=== PATIENT | female | born 1975 | race Caucasian/White ===

== ENCOUNTER 2018-05-04 06:42 | Emergency (ER) | payer OTHER ==
[2018-05-04] MEDS ORDERED: METHYLPREDNISOLONE 125 MG INJ ONE (07:06)
[2018-05-04] MEDS ORDERED: FAMOTIDINE 20 MG TAB ONE (07:06)
--- NOTE | 2018-05-04 07:11 | EDPHYS ---
Physician Documentation [facility] Name: Vickie Davila Age: 43 yrs Sex: Female : 1975 Arrival Date: 05/04/2018 Time: 06:43 Bed 17 Private MD: Yang Reddy B ED Physician Isaac Joseph HPI: 05/04 06:56 This 43 yrs old Female presents to ER via Ambulatory with complaints of Arm pm1 Pain, Wasp Sting. 06:56 The patient or guardian complains of pain, that is acute, swelling. The complaints pm1 affect the left hand and forearm. Context: The problem was sustained outdoors, resulted from Sting from wasps. Onset: The symptoms/episode began/occurred yesterday. Treatment prior to arrival includes: over the counter medications, Benadryl and ice packs. Modifying factors: The symptoms are alleviated by nothing. the symptoms are aggravated by nothing. Associated signs and symptoms: Pertinent positives: pain, swelling, Itching. Severity of symptoms: in the emergency department the symptoms are unchanged. The patient has not experienced similar symptoms in the past. The patient has not recently seen a physician. 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 - Social history:: Smoking status: Patient/guardian denies using tobacco, Patient/guardian denies using alcohol, street drugs. - Ebola Screening: : No symptoms or risks identified at this time. ROS: 06:56 Constitutional: Negative for fever, chills, and weight loss, Eyes: Negative for injury, pm1 pain, redness, and discharge, ENT: Negative for injury, pain, and discharge, Neck: Negative for injury, pain, and swelling, Cardiovascular: Negative for chest pain, palpitations, and edema, Respiratory: Negative for shortness of breath, cough, wheezing, and pleuritic chest pain, Abdomen/GI: Negative for abdominal pain, nausea, vomiting, diarrhea, and constipation, Back: Negative for injury and pain. 06:56 Neuro: Negative for headache, weakness, numbness, tingling, and seizure. 06:56 MS/extremity: Positive for pain, swelling, of the left hand and forearm. 06:56 Skin: Positive for swelling, of the left hand and forearm, pain. Exam: 06:56 Constitutional: This is a well developed, well nourished patient who is awake, alert, pm1 and in no acute distress. Head/Face: Normocephalic, atraumatic. Eyes: Pupils equal round and reactive to light, extra-ocular motions intact. Lids and lashes normal. Conjunctiva and sclera are non-icteric and not injected. Cornea within normal limits. Periorbital areas with no swelling, redness, or edema. ENT: Nares patent. No nasal discharge, no septal abnormalities noted. Tympanic membranes are normal and external auditory canals are clear. Oropharynx with no redness, swelling, or masses, exudates, or evidence of obstruction, uvula midline. Mucous membranes moist. Neck: Trachea midline, no thyromegaly or masses palpated, and no cervical lymphadenopathy. Supple, full range of motion without nuchal rigidity, or vertebral point tenderness. No Meningismus. Chest/axilla: Normal chest wall appearance and motion. Nontender with no deformity. No lesions are appreciated. Cardiovascular: Regular rate and rhythm with a normal S1 and S2. No gallops, murmurs, or rubs. No pulse deficits. Respiratory: Lungs have equal breath sounds bilaterally, clear to auscultation and percussion. No rales, rhonchi or wheezes noted. No increased work of breathing, no retractions or nasal flaring. Abdomen/GI: Soft, non-tender, with normal bowel sounds. No distension or tympany. No guarding or rebound. No evidence of tenderness throughout. Back: No spinal tenderness. No costovertebral tenderness. Full range of motion. 06:56 MS/ Extremity: Pulses equal, no cyanosis. Neurovascular intact. Full, normal range of motion. 06:56 Skin: Appearance: normal except for affected area, swelling, noted on the left hand, that are mild, cellulitis, is not appreciated. 06:56 Neuro: Orientation: is normal, Motor: is normal, moves all fours. Vital Signs: 06:54 BP 127 / 83; Pulse 67; Resp 16 S; Temp 98.1(O); Pulse Ox 98% on R/A; Weight 70.76 kg bb (R); Height 5 ft. 9 in. (175.26 cm) (R); Pain 10; 06:54 Body Mass Index 23.04 (70.76 kg, 175.26 cm) bb MDM: 06:51 Patient medically screened. pm1 06:55 ED course: Patient does not want any Benadryl because she needs to drive her child to pm1 an appointment in the medical center. Patient last took Benadryl at 0100 today. 07:10 Data reviewed: vital signs. Data interpreted: Pulse oximetry: on room air is 98 %. pm1 Interpretation: normal. Counseling: I had a detailed discussion with the patient and/or guardian regarding: the historical points, exam findings, and any diagnostic results supporting the discharge/admit diagnosis, the need for outpatient follow up, to return to the emergency department if symptoms worsen or persist or if there are any questions or concerns that arise at home. Administered Medications: 07:03 Drug: SOLU-Medrol 125 mg Route: IM; Site: right gluteus; tw2 07:15 Follow up: Response: No adverse reaction tw2 07:07 Drug: Pepcid 20 mg Route: PO; tw2 07:15 Follow up: Response: No adverse reaction tw2 Disposition: 05/04/18 07:11 Discharged to Home. Impression: Insect bite (nonvenomous) of left hand. - Condition is Stable. - Discharge Instructions: Insect Bite. - Prescriptions for Hydroxyzine HCl 25 mg Oral Tablet - take 1 tablet by ORAL route every 6 hours As needed; 30 tablet. Pepcid 20 mg Oral Tablet - take 1 tablet by ORAL route every 12 hours for 10 days; 20 tablet. Medrol (Zachariah) 4 mg Oral Tablets, Dose Pack - take 1 tablet by ORAL route as directed - follow package instructions; 1 packet. - Medication Reconciliation Form, Thank You Letter, Antibiotic Education, Prescription Opioid Use form. - Follow up: Emergency Department; When: As needed; Reason: Worsening of condition. Follow up: Yang Reddy; When: 2 - 3 days; Reason: Recheck today's complaints, Continuance of care, Re-evaluation by your physician. - Problem is new. - Symptoms have improved. Addendum: 05/07/2018 19:03 Co-signature as Attending Physician, Pin Joseph MD. p kl Signatures: Isaac Joseph MD MD pkl Rupa Ramirez, RN RN bb Amarjit Garner, SHIREEN SHOTBLAST EQUIPMENT OPERATOR pm1 Kalli Pedraza RN RN tw2 Corrections: (The following items were deleted from the chart) 05/04 07:16 07:11 05/04/2018 07:11 Discharged to Home. Impression: Insect bite (nonvenomous) of tw2 left hand. Condition is Stable. Discharge Instructions: Insect Bite. Prescriptions for Hydroxyzine HCl 25 mg Oral Tablet - take 1 tablet by ORAL route every 6 hours As needed; 30 tablet, Pepcid 20 mg Oral Tablet - take 1 tablet by ORAL route every 12 hours for 10 days; 20 tablet, Medrol (Zachariah) 4 mg Oral Tablets, Dose Pack - take 1 tablet by ORAL route as directed - follow package instructions; 1 packet. and Forms are Medication Reconciliation Form, Thank You Letter, Antibiotic Education, Prescription Opioid Use. Follow up: Emergency Department; When: As needed; Reason: Worsening of condition. Follow up: Yang Reddy; When: 2 - 3 days; Reason: Recheck today's complaints, Continuance of care, Re-evaluation by your physician. Problem is new. Symptoms have improved. pm1
--- NOTE | 2018-05-04 07:11 | ER ---
Nurse's Notes [facility] Name: Vickie Davila Age: 43 yrs Sex: Female : 1975 Arrival Date: 05/04/2018 Time: 06:43 Bed 17 Private MD: Yang Reddy B Diagnosis: Insect bite (nonvenomous) of left hand Presentation: 05/04 06:52 Presenting complaint: Patient states: she was stung by a wasp on her left hand bb yesterday her hand is swollen up into her forearm and is very painful. Transition of care: patient was not received from another setting of care. Onset: The symptoms/episode began/occurred yesterday. Anaphylaxis evaluation, no signs or symptoms of anaphylaxis were noted. Onset of symptoms was May 03, 2018. Risk Assessment: Do you want to hurt yourself or someone else? Patient reports no desire to harm self or others. Initial Sepsis Screen: Does the patient meet any 2 criteria? No. Patient's initial sepsis screen is negative. Does the patient have a suspected source of infection? No. Patient's initial sepsis screen is negative. [facility] 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 - Social history:: Smoking status: Patient/guardian denies using tobacco, Patient/guardian denies using alcohol, street drugs. - Ebola Screening: : No symptoms or risks identified at this time. Screenin:52 Abuse screen: Denies threats or abuse. Denies injuries from another. Nutritional aa1 screening: No deficits noted. Tuberculosis screening: No symptoms or risk factors identified. Fall Risk None identified. Assessment: 06:52 General: Appears in no apparent distress. comfortable, Behavior is calm, cooperative, aa1 appropriate for age. Pain: Complains of pain in left hand. Neuro: Level of Consciousness is awake, alert, obeys commands, Oriented to person, place, time, situation, Moves all extremities. Respiratory: Airway is patent Respiratory effort is even, unlabored, Respiratory pattern is regular, symmetrical, Breath sounds are clear bilaterally. GI: No signs and/or symptoms were reported involving the gastrointestinal system. : No signs and/or symptoms were reported regarding the genitourinary system. EENT: No signs and/or symptoms were reported regarding the EENT system. Derm: Skin is intact, is healthy with good turgor, Skin is pink, warm \T\ dry. redness noted to L hand. Musculoskeletal: Circulation, motion, and sensation intact. Capillary refill < 3 seconds, Swelling present in left hand. 07:16 Reassessment: Patient appears in no apparent distress at this time. Patient and/or tw2 family updated on plan of care and expected duration. Pain level reassessed. Patient is alert, oriented x 3, equal unlabored respirations, skin warm/dry/pink. Cardiovascular: Denies chest pain, Patient's skin is warm and dry. Vital Signs: 06:54 BP 127 / 83; Pulse 67; Resp 16 S; Temp 98.1(O); Pulse Ox 98% on R/A; Weight 70.76 kg bb (R); Height 5 ft. 9 in. (175.26 cm) (R); Pain 10/10; 06:54 Body Mass Index 23.04 (70.76 kg, 175.26 cm) bb ED Course: 06:43 Patient arrived in ED. am2 06:44 Yang Reddy MD is Private Physician. am2 06:49 [facility] pm1 06:49 Isaac Joseph MD is Attending Physician. pm1 06:52 Patient has correct armband on for positive identification. Bed in low position. Call aa1 light in reach. Pulse ox on. NIBP on. 06:53 Triage completed. bb 06:54 Arm band placed on Patient placed in an exam room, on a stretcher, on pulse oximetry. bb 06:59 Kalli Pedraza, JHOAN is Primary Nurse. tw2 07:08 No provider procedures requiring assistance completed. Patient did not have IV access tw2 during this emergency room visit. 07:11 Yang Reddy MD is Referral Physician. pm1 Administered Medications: 07:03 Drug: SOLU-Medrol 125 mg Route: IM; Site: right gluteus; tw2 07:15 Follow up: Response: No adverse reaction tw 07:07 Drug: Pepcid 20 mg Route: PO; tw 07:15 Follow up: Response: No adverse reaction Outcome: 07:11 Discharge ordered by . pm1 07:16 Discharged to home ambulatory. tw 07:16 Condition: stable 07:16 Discharge instructions given to patient, Instructed on discharge instructions, follow up and referral plans. medication usage, Demonstrated understanding of instructions, follow-up care, medications, Prescriptions given X 3. 07:16 Patient left the ED. Signatures: Angi Simpson RN RN aa1 Rupa Ramirez RN RN bb Amarjit Garner, SHIREEN LABORATORY TECHNOLOGIST pm1 Kalli Pedraza RN RN tw2 Bela Rangel am2
[2018-05-04 07:21] VITALS: BP 127/83; TEMP 98.1; O2SAT 98
== END 2018-05-04 07:16 | disposition home or self-care (01) ==
LOC: ER 06:42
DX: S60.562A Insect bite (nonvenomous) of left hand, initial encounter (principal); W57.XXXA Bitten or stung by nonvenomous insect and other nonvenomous arthropods, initial encounter; Y93.9 Activity, unspecified; Y92.017 Garden or yard in single-family (private) house as the place of occurrence of the external cause
CPT/HCPCS: 96372; 99283; J2930

== ENCOUNTER 2018-10-07 16:38 | Emergency (ER) | payer OTHER ==
[2018-10-07 17:44] LABS: Absolute Lymphocytes (CBC) 2.1 K/uL (0.7-4.9); Absolute Monocytes 0.7 K/uL (0.1-1.3); Absolute Neutrophil 3.8 K/uL (1.8-8.0); Eosinophils % 1.6 % (0-4.4); Lymphocytes % 31.2 % (15.3-44.8); MPV 9.3 fL (7.6-11.3); Monocytes % 10.3 % (3.3-12.3); RBC Red Blood Cell Count 3.95 M/uL (3.86-4.86)
[2018-10-07 18:02] LABS: Albumin 3.5 g/dL (3.4-5.0); Bilirubin Direct 0.1 mg/dL (0-0.2); Bilirubin Total 0.5 mg/dL (0.2-1.0); Potassium 3.8 mmol/L (3.5-5.1); Protein, Total 7.1 g/dL (6.4-8.2)
--- NOTE | 2018-10-07 18:36 | RAD REPORT ---
EXAM DESCRIPTION: CTAbdomen Pelvis W Contrast - 10/07/2018 6:29 pm CLINICAL HISTORY: Abdominal pain. Abd pain;GI bleed COMPARISON: No comparisons TECHNIQUE: Biphasic CT imaging of the abdomen and pelvis was performed with 100 ml non-ionic IV cont rast. All CT scans are performed using dose optimization technique as appropriate and may include automated exposure control or mA/KV adjustment according to patient size. FINDINGS: The lung bases are clear. The liver, spleen, pancreas, adrenal glands and kidneys are within normal limits. Small bilateral rafal al cysts. No bowel obstruction, free air, free fluid or abscess. The appendix is normal. No evidence of signi ficant lymphadenopathy. No suspicious bony findings. IMPRESSION: No acute intra-abdominal or pelvic finding.
[2018-10-07] MEDS ORDERED: NA CHLORIDE 0.9% 1,000 ML ONE (18:48)
[2018-10-07] MEDS ORDERED: CEFTRIAXONE/SWI 1gm 1 GM/10 ML SYR ONE (19:14)
--- NOTE | 2018-10-07 19:30 | ER ---
Nurse's Notes [facility] Name: Vickie Davila Age: 43 yrs Sex: Female : 1975 Arrival Date: 10/07/2018 Time: 16:40 Bed 18 Private MD: Yang Reddy B Diagnosis: Acute anal fissure;Unspecified abdominal pain Presentation: 10/07 16:51 Presenting complaint: Patient states: i just went to my PCP (Dr. Reddy) and was told i hj had UTI, today, when i went to the bathroom i started bleeding from my rectum, fresh blood and it hurts; denies fever and chills; reports abdominal pain; pain is 10/10; hx of hemorrhoids;. Transition of care: patient was not received from another setting of care. Onset of symptoms was October 07, 2018. Risk Assessment: Do you want to hurt yourself or someone else? Patient reports no desire to harm self or others. Initial Sepsis Screen: Does the patient meet any 2 criteria? No. Patient's initial sepsis screen is negative. Does the patient have a suspected source of infection? No. Patient's initial sepsis screen is negative. Care prior to arrival: None. 16:51 Method Of Arrival: Ambulatory 16:51 Acuity: CRISTAL 3 Triage Assessment: 16:54 General: Appears in no apparent distress. uncomfortable, Behavior is calm, cooperative, hj appropriate for age. Pain: Complains of pain in abdomen, rectum Pain currently is 10 out of 10 on a pain scale. 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 - Social history:: Smoking status: Patient/guardian denies using tobacco, Patient/guardian denies using alcohol. - Ebola Screening: : Patient negative for fever greater than or equal to 101.5 degrees Fahrenheit, and additional compatible Ebola Virus Disease symptoms Patient denies exposure to infectious person Patient denies travel to an Ebola-affected area in the 21 days before illness onset. Screenin:53 Abuse screen: Denies threats or abuse. Denies injuries from another. Nutritional hj screening: No deficits noted. Tuberculosis screening: No symptoms or risk factors identified. Fall Risk None identified. Assessment: 16:51 General: Appears in no apparent distress. uncomfortable, Behavior is calm, cooperative, hj appropriate for age. Pain: Complains of pain in abdomen, rectum. Neuro: Level of Consciousness is awake, alert, obeys commands, Oriented to person, place, time, situation, Appropriate for age. Cardiovascular: Capillary refill < 3 seconds Patient's skin is warm and dry. Respiratory: Airway is patent Respiratory effort is even, unlabored, Respiratory pattern is regular, symmetrical. GI: Reports lower abdominal pain, cramping, rectal bleeding, hemorrhoids. : No signs and/or symptoms were reported regarding the genitourinary system. EENT: No signs and/or symptoms were reported regarding the EENT system. Derm: No signs and/or symptoms reported regarding the dermatologic system. Musculoskeletal: No signs and/or symptoms reported regarding the musculoskeletal system. 17:41 Reassessment: Patient and/or family updated on plan of care and expected duration. Pain hj level reassessed. Patient is alert, oriented x 3, equal unlabored respirations, skin warm/dry/pink. awaiting results and POC;. 18:45 Reassessment: Patient is sitting up in bed eating Chick earl a wrap with family at aj bedside. Patient is laughing and smiling interacting with family. General: Appears in no apparent distress. comfortable, Behavior is calm, cooperative, appropriate for age. Pain: Complains of pain in anus. Neuro: Level of Consciousness is awake, alert, obeys commands, Oriented to person, place, time, situation. Respiratory: Airway is patent Respiratory effort is even, unlabored, Respiratory pattern is regular, symmetrical. GI: Reports rectal bleeding, hemorrhoids. Derm: Skin is intact, is healthy with good turgor, Skin is pink, warm \T\ dry. normal. 19:05 General: Appears in no apparent distress. comfortable, Behavior is calm, cooperative, rr5 appropriate for age. Pain: Complains of pain in anus, pelvis, groin Pain does not radiate. Pain currently is 6 out of 10 on a pain scale. Quality of pain is described as aching, Pain began gradually, Is intermittent. Neuro: Level of Consciousness is awake, alert, obeys commands, Oriented to person, place, time, situation, Appropriate for age. Cardiovascular: Capillary refill < 3 seconds Patient's skin is warm and dry. Respiratory: Airway is patent Respiratory effort is even, unlabored, Respiratory pattern is regular, symmetrical. 19:05 GI: Reports lower abdominal pain, cramping, rectal bleeding. : No signs and/or rr5 symptoms were reported regarding the genitourinary system. EENT: No signs and/or symptoms were reported regarding the EENT system. Derm: Skin is intact, is healthy with good turgor, Skin is pink, warm \T\ dry. normal. Musculoskeletal: No signs and/or symptoms reported regarding the musculoskeletal system. 20:04 Reassessment: Patient appears in no apparent distress at this time. Patient and/or rr5 family updated on plan of care and expected duration. Pain level reassessed. discharge instruction given and explained without complaints made. Patient states feeling better. Patient states symptoms have improved. Vital Signs: 16:53 BP 117 / 72; Pulse 59; Resp 18; Temp 98.1(O); Pulse Ox 100% on R/A; Weight 74.84 kg; hj Height 5 ft. 9 in. (175.26 cm); Pain 10/10; 16:55 BP 117 / 72; Pulse 60; Resp 18; Temp 98.1(O); Pulse Ox 100% on R/A; Weight 74.84 kg; hj Height 5 ft. 9 in. (175.26 cm); Pain 10/10; 17:41 BP 118 / 75; Pulse 59; Resp 18; Pulse Ox 100% on R/A; hj 19:05 BP 118 / 69; Pulse 57; Resp 16; Temp 98.2; Pulse Ox 99% ; rr5 20:00 BP 115 / 70; Pulse 60; Resp 16; Pulse Ox 99% ; rr5 16:55 Body Mass Index 24.37 (74.84 kg, 175.26 cm) ED Course: 16:40 Patient arrived in ED. mr 16:40 Yang Reddy MD is Private Physician. mr 16:45 Jose Braswell, JHOAN is Primary Nurse. hj 16:45 Amarjit Garner NP is PHCP. pm1 16:45 Steve Zhu MD is Attending Physician. pm1 16:53 Triage completed. hj 16:54 Arm band placed on right wrist. hj 16:54 Patient has correct armband on for positive identification. Placed in gown. Bed in low mh5 position. Call light in reach. Side rails up X 1. Warm blanket given. 16:55 Patient has correct armband on for positive identification. Placed in gown. Bed in low hj position. Call light in reach. Side rails up X 1. Adult w/ patient. 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 [facility] 17:20 Radiology exam delayed due to lab results not completed at this time. (BUN/Creatinine). 2 17:31 Initial lab(s) drawn, by me, sent to lab. Inserted saline lock: 20 gauge in left hj antecubital area, using aseptic technique. Blood collected. 17:42 Basic Metabolic Panel Sent. 17:42 CBC with Diff Sent. 17:42 Creatinine for Radiology Sent. 17:42 Hepatic Function Sent. 17:42 Lipase Sent. hj 18:[address] via wheelchair. nj 18:28 CT completed. Patient tolerated procedure well. Patient moved back from CT. nj 18:35 CT Abd/Pelvis - W/Contrast: IV contrast only In Process Unspecified. EDAR 19:03 Urine collected: clean catch specimen, clear. [facility] 19:03 Urine Culture Sent. [facility] 19:04 Urine Microscopic Only Sent. [facility] 20:06 IV discontinued, intact, bleeding controlled, No redness/swelling at site. Pressure rr5 dressing applied. Administered Medications: 18:47 Drug: NS 0.9% 1000 ml Route: IV; Rate: 1 bolus; Site: right antecubital; aj 20:00 Follow up: Response: No adverse reaction; IV Status: Completed infusion; IV Intake: rr5 1000ml 19:00 Drug: Rocephin 1 grams Route: IV; Rate: calculated rate; Site: left antecubital; rr5 20:00 Follow up: Response: No adverse reaction; IV Status: Completed infusion rr5 Intake: 20:00 IV: 1000ml; Total: 1000ml. rr5 Outcome: 19:29 Discharge ordered by . pm1 20:05 Discharged to home ambulatory, with family. rr5 20:05 Condition: stable 20:05 Discharge instructions given to patient, family, Instructed on discharge instructions, follow up and referral plans. medication usage, Demonstrated understanding of instructions, follow-up care, medications, Prescriptions given X 1. 20:06 Patient left the ED. rr5 Signatures: Dispatcher [employer] EDBela Tyson, Britni Garcia RN FrenchJose nix RN RN hj Marinas, Patrick, SHIREEN PAINTER AND GRADER CORK pm1 Jr Gonzales Maria 5 Nolvia Hargrove Hardy Acosta RN RN rr5 Corrections: (The following items were deleted from the chart) 16:55 16:53 BP 117 / 72; Pulse 59bpm; Resp 18bpm; Pulse Ox 100% RA; mh5
--- NOTE | 2018-10-07 19:30 | EDPHYS ---
Physician Documentation [facility] Name: Vickie Davila Age: 43 yrs Sex: Female : 1975 Arrival Date: 10/07/2018 Time: 16:40 Bed 18 Private MD: Yang Reddy B ED Physician Steve Zhu HPI: 10/07 18:05 This 43 yrs old Female presents to ER via Ambulatory with complaints of pm1 Rectal Bleeding. 18:05 The patient presents to the emergency department with bleeding from the rectum/anus. pm1 Onset: The symptoms/episode began/occurred this morning. Context: the patient has a known history of hemorrhoids. Modifying factors: The symptoms are alleviated by nothing, The symptoms are aggravated by nothing. Associate signs and symptoms: Pertinent positives: dysuria, Pertinent negatives: abdominal pain, constipation, diarrhea, fever, vaginal bleeding. The patient has been recently seen by a physician: the patient's primary care provider, For burning and pain with urination and rectal bleeding. Patient was given a prescription for Macrobid and a referral to Dr. Odell by Dr. Reddy. Patient with bright red bleeding from anal area this AM when she was urinating. Burning and difficulty with urination this AM. Went to PCP and was diagnosed with UTI and referred to Dr. Odell for evaluation and treatment. Patient reports soft bowel movement without any blood present. However went to urinate and had some blood present from anus for the second time today and then presented to ER. Has pain present o anal area. 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 - Social history:: Smoking status: Patient/guardian denies using tobacco, Patient/guardian denies using alcohol. - Ebola Screening: : Patient negative for fever greater than or equal to 101.5 degrees Fahrenheit, and additional compatible Ebola Virus Disease symptoms Patient denies exposure to infectious person Patient denies travel to an Ebola-affected area in the 21 days before illness onset. ROS: 18:05 Constitutional: Negative for fever, chills, and weight loss, Eyes: Negative for injury, pm1 pain, redness, and discharge, ENT: Negative for injury, pain, and discharge, Neck: Negative for injury, pain, and swelling, Cardiovascular: Negative for chest pain, palpitations, and edema, Respiratory: Negative for shortness of breath, cough, wheezing, and pleuritic chest pain. 18:05 Back: Negative for injury and pain. 18:05 MS/Extremity: Negative for injury and deformity, Skin: Negative for injury, rash, and discoloration, Neuro: Negative for headache, weakness, numbness, tingling, and seizure. 18:05 Abdomen/GI: Positive for rectal pain, rectal bleeding, Negative for abdominal pain, nausea, vomiting, and diarrhea. 18:05 : Positive for urinary symptoms, burning with urination, difficulty urinating, Negative for flank pain, vaginal bleeding. Exam: 18:05 Constitutional: This is a well developed, well nourished patient who is awake, alert, pm1 and in no acute distress. Head/Face: Normocephalic, atraumatic. Neck: Trachea midline, no thyromegaly or masses palpated, and no cervical lymphadenopathy. Supple, full range of motion without nuchal rigidity, or vertebral point tenderness. No Meningismus. Chest/axilla: Normal chest wall appearance and motion. Nontender with no deformity. No lesions are appreciated. Cardiovascular: Regular rate and rhythm with a normal S1 and S2. No gallops, murmurs, or rubs. Normal PMI, no JVD. No pulse deficits. Respiratory: Lungs have equal breath sounds bilaterally, clear to auscultation and percussion. No rales, rhonchi or wheezes noted. No increased work of breathing, no retractions or nasal flaring. Abdomen/GI: Soft, non-tender, with normal bowel sounds. No distension or tympany. No guarding or rebound. No evidence of tenderness throughout. Back: No spinal tenderness. No costovertebral tenderness. Full range of motion. Skin: Warm, dry with normal turgor. Normal color with no rashes, no lesions, and no evidence of cellulitis. MS/ Extremity: Pulses equal, no cyanosis. Neurovascular intact. Full, normal range of motion. 18:05 Neuro: Orientation: is normal, Motor: is normal, moves all fours, Sensation: is normal, no obvious gross deficits. 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 Vital Signs: 16:53 BP 117 / 72; Pulse 59; Resp 18; Temp 98.1(O); Pulse Ox 100% on R/A; Weight 74.84 kg; hj Height 5 ft. 9 in. (175.26 cm); Pain 10/10; 16:55 BP 117 / 72; Pulse 60; Resp 18; Temp 98.1(O); Pulse Ox 100% on R/A; Weight 74.84 kg; hj Height 5 ft. 9 in. (175.26 cm); Pain 10/10; 17:41 BP 118 / 75; Pulse 59; Resp 18; Pulse Ox 100% on R/A; hj 19:05 BP 118 / 69; Pulse 57; Resp 16; Temp 98.2; Pulse Ox 99% ; rr5 20:00 BP 115 / 70; Pulse 60; Resp 16; Pulse Ox 99% ; rr5 16:55 Body Mass Index 24.37 (74.84 kg, 175.26 cm) hj MDM: 16:47 Patient medically screened. pm1 19:28 Data reviewed: vital signs. Data interpreted: Pulse oximetry: on room air is 99 %. pm1 Interpretation: normal. 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 10/07 17:16 Order name: Basic Metabolic Panel; Complete Time: 18:05 pm1 10/07 17:16 Order name: CBC with Diff; Complete Time: 18:05 pm1 10/07 17:16 Order name: Creatinine for Radiology; Complete Time: 18:05 pm1 10/07 17:16 Order name: Hepatic Function; Complete Time: 18:05 pm1 10/07 17:16 Order name: Lipase; Complete Time: 18:05 pm1 10/07 18:21 Order name: Urine Microscopic Only; Complete Time: 19:34 pm1 10/07 17:16 Order name: IV Saline Lock; Complete Time: 17:31 pm1 10/07 17:16 Order name: Labs collected and sent; Complete Time: 17:31 pm1 10/07 17:16 Order name: CT Abd/Pelvis - W/Contrast: IV contrast only; Complete Time: 18:42 pm1 10/07 18:59 Order name: Urine Culture pm1 10/07 19:05 Order name: Urine Dipstick--Ancillary (enter results); Complete Time: 19:34 mw2 10/07 19:05 Order name: Urine --Ancillary (enter results); Complete Time: 19:34 mw2 10/07 18:21 Order name: Urine Dipstick-Ancillary (obtain specimen); Complete Time: 19:04 pm1 Administered Medications: 18:47 Drug: NS 0.9% 1000 ml Route: IV; Rate: 1 bolus; Site: right antecubital; aj 20:00 Follow up: Response: No adverse reaction; IV Status: Completed infusion; IV Intake: rr5 1000ml 19:00 Drug: Rocephin 1 grams Route: IV; Rate: calculated rate; Site: left antecubital; rr5 20:00 Follow up: Response: No adverse reaction; IV Status: Completed infusion rr5 Disposition: 10/07/18 19:29 Discharged to Home. Impression: Acute anal fissure, Unspecified abdominal pain. - Condition is Stable. - Discharge Instructions: Abdominal Pain, Adult, Anal Fissure, Adult, Hemorrhoids. - Prescriptions for Anusol- HC 25 mg Rectal Suppository - insert 1 suppository by RECTAL route every 12 hours As needed; 20 suppository. - Medication Reconciliation Form, Thank You Letter, Antibiotic Education, Prescription Opioid Use form. - Follow up: Emergency Department; When: As needed; Reason: Worsening of condition. Follow up: Private Physician; When: 2 - 3 days; Reason: Recheck today's complaints, Continuance of care, Re-evaluation by your physician. - Problem is new. - Symptoms have improved. Addendum: 10/10/2018 20:26 Co-signature as Attending Physician, Steve Zhu MD. r n Signatures: Dispatcher [employer] EDMS Tripp, Bela, RN RN aj ZhuSteve MD MD rn Joaquin, Henry, RN RN hj Marinas, Patrick, NP KITCHEN LEAD pm1 Hardy Robertson RN RN rr5 Corrections: (The following items were deleted from the chart) 10/07 20:06 19:29 10/07/2018 19:29 Discharged to Home. Impression: Acute anal fissure; Unspecified rr5 abdominal pain. Condition is Stable. Forms are Medication Reconciliation Form, Thank You Letter, Antibiotic Education, Prescription Opioid Use. Follow up: Emergency Department; When: As needed; Reason: Worsening of condition. Follow up: Private Physician; When: 2 - 3 days; Reason: Recheck today's complaints, Continuance of care, Re-evaluation by your physician. Problem is new. Symptoms have improved. pm1
[2018-10-07 19:32] LABS: Urine Blood TRACE (NEG); Urine Glucose NEGATIVE (NEG); Urine Protein NEGATIVE (NEG); Urine Specific Gravity 1.015 (1.005-1.030); Urine pH 6.5 (5.0-7.0)
[2018-10-07 19:32] LABS: Urine Bacteria NONE SEEN /HPF (<20); Urine Culture Reflex Order NOT NEEDED
[2018-10-07 20:17] VITALS: TEMP 98.2; O2SAT 99
[2018-10-07 20:18] VITALS: BP 115/70
== END 2018-10-07 20:06 | disposition home or self-care (01) ==
LOC: ER 16:38
DX: K60.0 Acute anal fissure (principal); R10.9 Unspecified abdominal pain
CPT/HCPCS: 36415; 74177; 80048; 80076; 81003; 81015; 81025; 83690; 85025; 87086; 87088; 96365; 99284; J0696; J7030; Q9967

== ENCOUNTER 2019-01-10 11:40 | Emergency (ER) | payer OTHER ==
--- NOTE | 2019-01-10 12:24 | ER ---
Nurse's Notes [facility] Name: Vickie Davila Age: 43 yrs Sex: Female : 1975 Arrival Date: 01/10/2019 Time: 11:42 Bed 13 Private MD: Yang Reddy B Diagnosis: Pain in right hand;Pain in right wrist Presentation: 01/10 11:43 Presenting complaint: Patient states: right hand pain that began yesterday. Pt denies aa5 known injury. Pt states "my whole right side hurts, the right side of my face, my right arm, and right leg". Transition of care: patient was not received from another setting of care. Onset of symptoms was December 2018. Risk Assessment: Do you want to hurt yourself or someone else? Patient reports no desire to harm self or others. Initial Sepsis Screen: Does the patient meet any 2 criteria? No. Patient's initial sepsis screen is negative. Does the patient have a suspected source of infection? No. Patient's initial sepsis screen is negative. Care prior to arrival: None. 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 - Social history:: Smoking status: Patient/guardian denies using tobacco. - Ebola Screening: : No symptoms or risks identified at this time. Screenin:00 Abuse screen: Denies threats or abuse. Denies injuries from another. Nutritional jl7 screening: No deficits noted. Tuberculosis screening: No symptoms or risk factors identified. Fall Risk None identified. Assessment: 12:00 General: Appears in no apparent distress. uncomfortable, Behavior is cooperative, jl7 agitated. Pain: Complains of pain in Right first web space Pain radiates to right arm Pain began 1 day ago. Neuro: Level of Consciousness is awake, alert, obeys commands, Oriented to person, place, time, situation. Cardiovascular: Patient's skin is warm and dry. Respiratory: Airway is patent Respiratory effort is even, unlabored, Respiratory pattern is regular, symmetrical. Derm: Skin is pink, warm \\T\\ dry. Vital Signs: 11:46 BP 142 / 96; Pulse 71; Resp 18 S; Temp 97.4(TE); Pulse Ox 100% on R/A; Weight 72.57 kg aa5 (R); Height 5 ft. 9 in. (175.26 cm) (R); Pain 10/10; 11:46 Body Mass Index 23.63 (72.57 kg, 175.26 cm) aa5 ED Course: 11:42 Patient arrived in ED. as 11:42 Yang Reddy MD is Private Physician. as 11:43 Arm band placed on. aa5 11:48 Triage completed. aa5 11:52 Og Byrnes RN is Primary Nurse. jl7 11:58 Warren Pablo PA is PHCP. cp 11:58 Warren Pierson MD is Attending Physician. cp 12:00 Patient has correct armband on for positive identification. Bed in low position. Call jl7 light in reach. Side rails up X 1. 12:19 No provider procedures requiring assistance completed. Patient did not have IV access jl7 during this emergency room visit. 12:22 Mk Colunga MD is Referral Physician. cp Administered Medications: 12:17 Drug: Hydrocodone-Acetaminophen (7.5 mg-325 mg) 1 tabs Route: PO; jl7 12:30 Follow up: Response: Medication administered at discharge. jl7 12:17 Not Given (Patient Refused): Ibuprofen 800 mg PO once jl7 Outcome: 12:23 Discharge ordered by MD. cp 12:40 Discharged to home ambulatory, Pt left the facility before discharge papers were given jl7 12:40 Condition: stable 12:41 Patient left the ED. jl7 Signatures: Traci Zhneg Audri RN RN aa5 Warren Pablo PA PA cp Og Byrnes RN RN jl7 Corrections: (The following items were deleted from the chart) 11:47 11:43 Presenting complaint: Patient states: right hand pain that began yesterday. Pt aa5 denies known injury. aa5 11:48 11:43 Presenting complaint: Patient states: right hand pain that began yesterday. Pt aa5 denies known injury. Pt states "my whole right side hurts, the right side of my face, my right arm, and right leg" aa5 16:43 16:42 Response: Medication administered at discharge. shai magoNena 16:44 12:40 Eloped from patient exam room, after seeing physician Time discovered patient shai gone: January 10, 2019 at 12:30 mago7
--- NOTE | 2019-01-10 12:24 | EDPHYS ---
Physician Documentation [facility] Name: Vickie Davila Age: 43 yrs Sex: Female : 1975 Arrival Date: 01/10/2019 Time: 11:42 Bed 13 Private MD: Yang Reddy B ED Physician Warren Pierson HPI: 01/10 12:17 This 43 yrs old Female presents to ER via Ambulatory with complaints of right cp hand and wrist pain. 12:17 The patient or guardian complains of pain, that is acute, tenderness. The complaints cp affect the right wrist and right hand. Onset: The symptoms/episode began/occurred last night. Treatment prior to arrival includes: splinting the affected extremity. Associated signs and symptoms: Pertinent positives: weakness, Pertinent negatives: numbness. Severity of symptoms: in the emergency department the symptoms are unchanged. 12:17 Patient reports she has baclofen and diclofenac medications at home but has not taken cp them after reading labels. 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 - Social history:: Smoking status: Patient/guardian denies using tobacco. - Ebola Screening: : No symptoms or risks identified at this time. ROS: 12:19 Constitutional: Negative for body aches, chills, fever, poor PO intake. cp 12:19 MS/extremity: Positive for decreased range of motion, pain, tenderness, of the right wrist and right hand, Negative for injury or acute deformity, paresthesias. 12:19 Neuro: Positive for weakness, of the right hand. 12:19 All other systems are negative. Exam: 12:20 Head/Face: Normocephalic, atraumatic. cp 12:20 Constitutional: The patient appears in no acute distress, alert, awake, well developed, well nourished. 12:20 Musculoskeletal/extremity: Extremities: grossly normal except: noted in the dorsal aspect proximal first and second metacarpals: decreased ROM, tenderness, mild swelling, ROM: limited passive range of motion due to pain, in the right thumb, Perfusion: the extremity is normally perfused throughout, Sensation intact. 12:20 Skin: cellulitis, is not appreciated, no rash present. Vital Signs: 11:46 BP 142 / 96; Pulse 71; Resp 18 S; Temp 97.4(TE); Pulse Ox 100% on R/A; Weight 72.57 kg aa5 (R); Height 5 ft. 9 in. (175.26 cm) (R); Pain 10/10; 11:46 Body Mass Index 23.63 (72.57 kg, 175.26 cm) aa5 MDM: 11:58 Patient medically screened. cp 12:22 Data reviewed: vital signs, nurses notes. Refusal of service: The patient/guardian cp displays adequate decision making capability and despite a detailed discussion of alternatives, benefits, risks, and consequences refuses: all X-rays. Administered Medications: 12:17 Drug: Hydrocodone-Acetaminophen (7.5 mg-325 mg) 1 tabs Route: PO; jl7 12:30 Follow up: Response: Medication administered at discharge. jl 12:17 Not Given (Patient Refused): Ibuprofen 800 mg PO once jl7 Disposition: 12:45 Chart complete. cp 01/11 08:46 Co-signature as Attending Physician, Warren Pierson MD I agree with the assessment and joseph plan of care. Disposition: 01/10/19 12:23 Discharged to Home. Impression: Pain in right hand, Pain in right wrist. - Condition is Stable. - Discharge Instructions: Tendinitis, Wrist Pain, Hand Exercises, Hand Pain. - Prescriptions for Tramadol 50 mg Oral Tablet - take 1 tablet by ORAL route every 8 hours as needed; 15 tablet. - Medication Reconciliation Form, Thank You Letter, Antibiotic Education, Prescription Opioid Use form. - Follow up: Mk Colunga MD; When: 2 - 3 days; Reason: Recheck today's complaints. - Problem is new. - Symptoms have improved. Signatures: Warren Pierson MD MD cha Calderon, Audri, RN RN aa5 Warren Pablo PA PA Og Gruber RN RN jl7 Corrections: (The following items were deleted from the chart) 01/10 12:41 12:23 01/10/2019 12:23 Discharged to Home. Impression: Pain in right hand; Pain in jl7 right wrist. Condition is Stable. Forms are Medication Reconciliation Form, Thank You Letter, Antibiotic Education, Prescription Opioid Use. Follow up: Mk Colunga; When: 2 - 3 days; Reason: Recheck today's complaints. Problem is new. Symptoms have improved. cp
[2019-01-10] MEDS ORDERED: IBUPROFEN 400 MG TAB ONE (12:26)
[2019-01-10] MEDS ORDERED: HYDROCODONE/APAP 7.5/325 MG TAB ONE (12:26)
[2019-01-10 13:21] VITALS: BP 142/96; TEMP 97.4; O2SAT 100
== END 2019-01-10 12:41 | disposition home or self-care (01) ==
LOC: ER 11:40
DX: M25.531 Pain in right wrist (principal); M79.641 Pain in right hand
CPT/HCPCS: 99282

== ENCOUNTER 2019-04-03 13:14 | Emergency (ER) | payer OTHER ==
[2019-04-03] MEDS ORDERED: FAMOTIDINE 20 MG/2 ML VIAL IV ONE (13:48)
[2019-04-03] MEDS ORDERED: ALBUTEROL 2.5 MG/3 ML NEB SOL ONE (13:48)
[2019-04-03] MEDS ORDERED: IPRATROPIUM BROM 0.5MG/2.5ML ONE (13:48)
[2019-04-03] MEDS ORDERED: METHYLPREDNISOLONE 125 MG INJ ONE (13:48)
[2019-04-03] MEDS ORDERED: IBUPROFEN 200 MG TAB PO ONE (14:31)
[2019-04-03] MEDS ORDERED: IBUPROFEN 400 MG TAB ONE (14:31)
--- NOTE | 2019-04-03 14:31 | ER ---
Nurse's Notes [facility] Name: Vickie Davila Age: 44 yrs Sex: Female : 1975 Arrival Date: 04/03/2019 Time: 13:17 Bed 20 Private MD: Diagnosis: Bitten or stung by nonvenomous insect and other nonvenomous arthropods-wasp;Cellulitis of abdominal wall Presentation: 04/03 13:20 Presenting complaint: Patient states: I got stung by a bee on my right hip yesterday la1 and its red and swollen, I took benadryl last night but it didn't help. I was working outside today at the [employer] and felt SOB, pt speaking full sentences, joking and laughing in triage. Transition of care: patient was not received from another setting of care. Onset of symptoms was April 03, 2019. Risk Assessment: Do you want to hurt yourself or someone else? Patient reports no desire to harm self or others. Initial Sepsis Screen: Does the patient meet any 2 criteria? No. Patient's initial sepsis screen is negative. Does the patient have a suspected source of infection? No. Patient's initial sepsis screen is negative. Care prior to arrival: None. 13:20 Method Of Arrival: Ambulatory la1 13:20 Acuity: CRISTAL 4 la1 Historical: - Allergies: 13:19 No Known Allergies; la1 - PMHx: 13:19 None; la1 - Immunization history:: Adult Immunizations up to date. - Social history:: Smoking status: Patient/guardian denies using tobacco. - Ebola Screening: : No symptoms or risks identified at this time. Screenin:25 Abuse screen: Denies threats or abuse. Nutritional screening: No deficits noted. em Tuberculosis screening: No symptoms or risk factors identified. Fall Risk None identified. Assessment: 13:40 General: Appears in no apparent distress. distressed, Behavior is calm, cooperative, em Denies fever. Pain: Complains of pain in posterior aspect of left lateral abdomen and anterior aspect of left lateral abdomen Pain currently is 5 out of 10 on a pain scale. Neuro: Level of Consciousness is awake, alert, obeys commands, Oriented to person, place, time, situation. Cardiovascular: Capillary refill < 3 seconds Patient's skin is warm and dry. Rhythm is regular. Respiratory: Reports shortness of breath cough that is productive, Airway is patent Respiratory effort is even, unlabored, Respiratory pattern is regular, symmetrical, Breath sounds with wheezes in left posterior lower lobe and right posterior lower lobe. GI: Patient currently denies. Derm: Skin is intact, is healthy with good turgor, Skin is pink, warm \T\ dry. redness and hot to touch noted on the right hip area. Musculoskeletal: Capillary refill < 3 seconds, Range of motion: intact in all extremities. 14:00 Reassessment: Patient appears in no apparent distress at this time. I agree with above iw assessment by Yeison Lund LVN. 14:27 Reassessment: Patient appears in no apparent distress at this time. Patient and/or em family updated on plan of care and expected duration. Pain level reassessed. Patient is alert, oriented x 3, equal unlabored respirations, skin warm/dry/pink. provider at bedside. Vital Signs: 13:19 BP 104 / 71; Pulse 79; Resp 16; Temp 98.4(TE); Pulse Ox 98% on R/A; Weight 71.67 kg; la1 Height 5 ft. 9 in. (175.26 cm); 13:19 Body Mass Index 23.33 (71.67 kg, 175.26 cm) la1 ED Course: 13:17 Patient arrived in ED. mr 13:19 Barrett Shaunna, [facility] kb 13:19 Rose Gee MD is Attending Physician. kb 13:20 Arm band placed on right wrist. la1 13:21 Triage completed. la1 13:25 Yeison Lund LVN is Primary Nurse. em 13:30 Patient has correct armband on for positive identification. Bed in low position. Call em light in reach. Pulse ox on. NIBP on. 13:40 Inserted saline lock: 20 gauge in left antecubital area, using aseptic technique. em 14:54 No provider procedures requiring assistance completed. IV discontinued, intact, em bleeding controlled, No redness/swelling at site. Pressure dressing applied. Administered Medications: 13:40 Drug: DuoNeb (3:1) (2.5 mg - 0.5 mg) 3 ml Route: Nebulizer; em 14:53 Follow up: Response: No adverse reaction; Marked relief of symptoms em 13:42 Drug: Pepcid 20 mg Route: IVP; Site: left antecubital; iw 14:53 Follow up: Response: No adverse reaction; Marked relief of symptoms em 13:44 Drug: SOLU-Medrol 125 mg Route: IVP; Site: left antecubital; iw 14:53 Follow up: Response: No adverse reaction; Marked relief of symptoms em 14:18 Drug: Ibuprofen 600 mg Route: PO; iw 14:53 Follow up: Response: No adverse reaction; Pain is decreased em Outcome: 14:30 Discharge ordered by . corby 14:54 Discharged to home ambulatory. em 14:54 Condition: good 14:54 Discharge instructions given to patient, Instructed on discharge instructions, follow up and referral plans. medication usage, Demonstrated understanding of instructions, follow-up care, medications, Prescriptions given X 3. 14:55 Patient left the ED. em Signatures: Shaunna Hyde, STEAM TANK OPERATOR-C STEAM TANK OPERATOR-Britni Kaba mr Yeison Lund, AUDITOR AUDITOR em Naye Hassan RN RN Rahul Farley RN RN la1 Corrections: (The following items were deleted from the chart) 13:29 13:20 Acuity: CRISTAL 5 la1 la1
--- NOTE | 2019-04-03 14:31 | EDPHYS ---
Physician Documentation [facility] Name: Vickie Davila Age: 44 yrs Sex: Female : 1975 Arrival Date: 04/03/2019 Time: 13:17 Bed 20 Private MD: ED Physician Rose Gee HPI: 04/03 14:14 This 44 yrs old Female presents to ER via Ambulatory with complaints of kb Breathing Difficulty, Bee Sting. 14:15 The patient presents with localized swelling, redness of skin. Onset: The kb symptoms/episode began/occurred yesterday. Associated signs and symptoms: Pertinent positives: swelling. Possible causes: wasp. At home the patient or guardian has treated the symptoms with Benadryl. Severity of symptoms: At their worst the symptoms were moderate in the emergency department the symptoms are unchanged. The patient has not experienced similar symptoms in the past. The patient has not recently seen a physician. Pt reports she was stung by a black wasp yesterday. Today the area is red and swollen and she was having trouble breathing.. Historical: - Allergies: 13:19 No Known Allergies; la1 - PMHx: 13:19 None; la1 - Immunization history:: Adult Immunizations up to date. - Social history:: Smoking status: Patient/guardian denies using tobacco. - Ebola Screening: : No symptoms or risks identified at this time. ROS: 14:05 Constitutional: Negative for fever, chills, and weight loss, Cardiovascular: Negative kb for chest pain, palpitations, and edema, Abdomen/GI: Negative for abdominal pain, nausea, vomiting, diarrhea, and constipation, Back: Negative for injury and pain, MS/Extremity: Negative for injury and deformity, Neuro: Negative for headache, weakness, numbness, tingling, and seizure. 14:05 Respiratory: Positive for cough, shortness of breath. 14:05 Skin: Positive for erythema, swelling, of the posterior aspect of right lateral abdomen and anterior aspect of right lateral abdomen. Exam: 14:09 Constitutional: This is a well developed, well nourished patient who is awake, alert, kb and in no acute distress. Head/Face: Normocephalic, atraumatic. Chest/axilla: Normal chest wall appearance and motion. Nontender with no deformity. No lesions are appreciated. Cardiovascular: Regular rate and rhythm with a normal S1 and S2. No gallops, murmurs, or rubs. Normal PMI, no JVD. No pulse deficits. Respiratory: Lungs have equal breath sounds bilaterally, clear to auscultation and percussion. No rales, rhonchi or wheezes noted. No increased work of breathing, no retractions or nasal flaring. Abdomen/GI: Soft, non-tender, with normal bowel sounds. No distension or tympany. No guarding or rebound. No evidence of tenderness throughout. Back: No spinal tenderness. No costovertebral tenderness. Full range of motion. MS/ Extremity: Pulses equal, no cyanosis. Neurovascular intact. Full, normal range of motion. Neuro: Awake and alert, GCS 15, oriented to person, place, time, and situation. Cranial nerves II-XII grossly intact. Motor strength 5/5 in all extremities. Sensory grossly intact. Cerebellar exam normal. Normal gait. 14:09 Skin: cellulitis, that is moderate, on the anterior aspect of right lateral abdomen and posterior aspect of right lateral abdomen. Vital Signs: 13:19 BP 104 / 71; Pulse 79; Resp 16; Temp 98.4(TE); Pulse Ox 98% on R/A; Weight 71.67 kg; la1 Height 5 ft. 9 in. (175.26 cm); 13:19 Body Mass Index 23.33 (71.67 kg, 175.26 cm) la1 MDM: 13:22 Patient medically screened. kb 14:08 Data reviewed: vital signs, nurses notes. Data interpreted: Pulse oximetry: on room air kb is 98 %. Interpretation: normal. 14:18 Counseling: I had a detailed discussion with the patient and/or guardian regarding: the kb historical points, exam findings, and any diagnostic results supporting the discharge/admit diagnosis, the need for outpatient follow up, a family practitioner, to return to the emergency department if symptoms worsen or persist or if there are any questions or concerns that arise at home. ED course: Area that pt reports she was stung is right lateral, lower abd. Skin is red, hot, tender and swollen. cellulitic in appearance. Will treat with antibiotics and give medications for allergic component. 04/03 13:29 Order name: IV Start; Complete Time: 13:48 kb Administered Medications: 13:40 Drug: DuoNeb (3:1) (2.5 mg - 0.5 mg) 3 ml Route: Nebulizer; em 14:53 Follow up: Response: No adverse reaction; Marked relief of symptoms em 13:42 Drug: Pepcid 20 mg Route: IVP; Site: left antecubital; iw 14:53 Follow up: Response: No adverse reaction; Marked relief of symptoms em 13:44 Drug: SOLU-Medrol 125 mg Route: IVP; Site: left antecubital; iw 14:53 Follow up: Response: No adverse reaction; Marked relief of symptoms em 14:18 Drug: Ibuprofen 600 mg Route: PO; iw 14:53 Follow up: Response: No adverse reaction; Pain is decreased em Disposition: 04/03/19 14:30 Discharged to Home. Impression: Bitten or stung by nonvenomous insect and other nonvenomous arthropods - wasp, Cellulitis of abdominal wall. - Condition is Stable. - Discharge Instructions: Bee, Wasp, or Hornet Sting, Adult, Cellulitis, Adult, [id number]. - Prescriptions for Pepcid 20 mg Oral Tablet - take 1 tablet by ORAL route every 12 hours for 5 days; 10 tablet. Prednisone 20 mg Oral Tablet - take 1 tablet by ORAL route once daily for 5 days; 5 tablet. Bactrim DS 800- 160 mg Oral Tablet - take 1 tablet by ORAL route every 12 hours for 7 days; 14 tablet. - Medication Reconciliation Form, Thank You Letter, Antibiotic Education, Prescription Opioid Use form. - Follow up: Emergency Department; When: As needed; Reason: Worsening of condition. Follow up: Private Physician; When: 2 - 3 days; Reason: Recheck today's complaints, Continuance of care, Re-evaluation by your physician. Addendum: 04/08/2019 02:08 Co-signature as Attending Physician, Rose Gee MD. m a2 Signatures: Shaunna Hyde, AMANDA-C DIRECTOR OF LOSS PREVENTION-Yeison Miller LVN LVN em Naye Hassan, RN JHOAN iw Rahul Farley RN RN tk1 Rose Gee MD MD ma2 Corrections: (The following items were deleted from the chart) 04/03 14:55 14:30 04/03/2019 14:30 Discharged to Home. Impression: Bitten or stung by nonvenomous em insect and other nonvenomous arthropods - wasp; Cellulitis of abdominal wall. Condition is Stable. Forms are Medication Reconciliation Form, Thank You Letter, Antibiotic Education, Prescription Opioid Use. Follow up: Emergency Department; When: As needed; Reason: Worsening of condition. Follow up: Private Physician; When: 2 - 3 days; Reason: Recheck today's complaints, Continuance of care, Re-evaluation by your physician. kb
[2019-04-03 15:03] VITALS: BP 104/71; TEMP 98.4; O2SAT 98
== END 2019-04-03 14:55 | disposition home or self-care (01) ==
LOC: ER 13:14
DX: L03.311 Cellulitis of abdominal wall (principal); T63.461A Toxic effect of venom of wasps, accidental (unintentional), initial encounter; Y92.009 Unspecified place in unspecified non-institutional (private) residence as the place of occurrence of the external cause
CPT/HCPCS: 94640; 96374; 96375; 99284; J2930

== ENCOUNTER 2019-05-13 18:03 | Emergency (ER) | payer OTHER ==
[2019-05-13] MEDS ORDERED: DIPHENHYDRAMINE 50 MG/ML VIAL ONE (18:28)
[2019-05-13] MEDS ORDERED: dexAMETHasone 10 MG/ML VIAL ONE (18:28)
[2019-05-13] MEDS ORDERED: FAMOTIDINE 20 MG/2 ML VIAL IV ONE (18:28)
[2019-05-13] MEDS ORDERED: NA CHLORIDE 0.9% 1,000 ML ONE (18:28)
--- NOTE | 2019-05-13 20:06 | ER ---
Nurse's Notes [facility] Name: Vickie Davila Age: 44 yrs Sex: Female : 1975 Arrival Date: 05/13/2019 Time: 18:03 Bed 20 Private MD: Diagnosis: Toxic effect of venom of wasps, accidental (unintentional) Presentation: 05/13 18:09 Presenting complaint: Patient states: About 20 minutes ago I was stung by a wasp on the la1 forehead and I am allergic. Transition of care: patient was not received from another setting of care. Onset: The symptoms/episode began/occurred acutely. Anaphylaxis evaluation, no signs or symptoms of anaphylaxis were noted. Onset of symptoms was May 13, 2019. Risk Assessment: Do you want to hurt yourself or someone else? Patient reports no desire to harm self or others. Initial Sepsis Screen: Does the patient meet any 2 criteria? No. Patient's initial sepsis screen is negative. Does the patient have a suspected source of infection? No. Patient's initial sepsis screen is negative. Care prior to arrival: None. 18:09 Method Of Arrival: Ambulatory la1 18:09 Acuity: CRISTAL 3 la1 Triage Assessment: 18:30 General: Behavior is calm, cooperative, appropriate for age. 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 - Social history:: Smoking status: Patient/guardian denies using tobacco. - Ebola Screening: : No symptoms or risks identified at this time. Screenin:30 Abuse screen: Denies threats or abuse. Denies injuries from another. Nutritional screening: No deficits noted. Tuberculosis screening: No symptoms or risk factors identified. Fall Risk None identified. Assessment: 18:30 General: Appears in no apparent distress. uncomfortable. Pain: Complains of pain in Right forehead Pain does not radiate. Pain currently is 5 out of 10 on a pain scale. Quality of pain is described as aching, Pain began 30 min ago. Neuro: Level of Consciousness is awake, alert, obeys commands, Oriented to person, place, time, situation, Appropriate for age. Cardiovascular: Capillary refill < 3 seconds. Cardiovascular: Heart tones S1 S2. Respiratory: Airway is patent Respiratory effort is even, unlabored, Respiratory pattern is regular, symmetrical. Respiratory: Breath sounds are clear bilaterally. GI: Abdomen is flat, non-distended. : No signs and/or symptoms were reported regarding the genitourinary system. EENT: No signs and/or symptoms were reported regarding the EENT system. Derm: swelling on R forehead. Musculoskeletal: Range of motion: intact in all extremities. 19:30 Reassessment: Patient appears in no apparent distress at this time. No changes from previously documented assessment. Patient and/or family updated on plan of care and expected duration. Pain level reassessed. Patient is alert, oriented x 3, equal unlabored respirations, skin warm/dry/pink. General:. 20:28 Reassessment: Patient appears in no apparent distress at this time. No changes from previously documented assessment. Patient and/or family updated on plan of care and expected duration. Pain level reassessed. Patient is alert, oriented x 3, equal unlabored respirations, skin warm/dry/pink. Patient denies pain at this time. Patient states feeling better. Patient states symptoms have improved. Vital Signs: 18:10 BP 121 / 89; Pulse 77; Resp 16; Temp 97.8; Pulse Ox 98% on R/A; Weight 72.57 kg; Height la1 5 ft. 9 in. (175.26 cm); 19:00 BP 121 / 70; Pulse 45; Resp 18; Pulse Ox 100% ; wh 20:00 BP 104 / 64; Pulse 45; Resp 18; Pulse Ox 100% on R/A; wh 18:10 Body Mass Index 23.63 (72.57 kg, 175.26 cm) la1 ED Course: 18:03 Patient arrived in ED. as 18:10 Triage completed. la1 18:11 Kaleb Owen PA is PHCP. jacky 18:11 Warren Pierson MD is Attending Physician. larry 18:11 Arm band placed on left wrist. la1 18:14 Tom Cash is Primary Nurse. 18:30 Patient has correct armband on for positive identification. Placed in gown. Bed in low wh position. Call light in reach. Pulse ox on. NIBP on. 18:30 Inserted saline lock: 22 gauge in left antecubital area, using aseptic technique. 20:29 No provider procedures requiring assistance completed. IV discontinued, intact, bleeding controlled, No redness/swelling at site. Administered Medications: 18:52 Drug: diphenhydrAMINE 50 mg Route: IVP; Site: left antecubital; 20:13 Follow up: Response: No adverse reaction 18:52 Drug: Pepcid 20 mg Route: IVP; Site: left antecubital; 20:13 Follow up: Response: No adverse reaction 18:52 Drug: Decadron - Dexamethasone 10 mg Route: IVP; Site: left antecubital; 20:13 Follow up: Response: No adverse reaction 18:53 Drug: NS 0.9% 1000 ml Route: IV; Rate: 1 bolus; Site: left antecubital; 20:13 Follow up: Response: No adverse reaction; IV Status: Completed infusion 20:13 Drug: Motrin 800 mg Route: PO; 20:14 Follow up: Response: No adverse reaction Outcome: 20:05 Discharge ordered by . jacky 20:30 Discharged to home ambulatory, with family. 20:30 Condition: improved 20:30 Discharge instructions given to patient, family, Instructed on discharge instructions, follow up and referral plans. medication usage, POC Bee/Wasp Sting Demonstrated understanding of instructions, follow-up care, medications, POC Prescriptions given X 4. 20:32 Patient left the ED. Signatures: Kaleb Owen PA PA jmm Martinez, Amelia as Attema, Lee RN RN Tom Huggins
--- NOTE | 2019-05-13 20:06 | EDPHYS ---
Physician Documentation [facility] Name: Vickie Davila Age: 44 yrs Sex: Female : 1975 Arrival Date: 05/13/2019 Time: 18:03 Bed 20 Private MD: ED Physician Warren Pierson HPI: 05/13 18:13 This 44 yrs old Female presents to ER via Ambulatory with complaints of jmm Allergic Reaction. 18:13 The patient presents with itching, localized swelling. Onset: The symptoms/episode jmm began/occurred acutely, just prior to arrival. Associated signs and symptoms: Pertinent positives: swelling, Pertinent negatives: fever, hives, shortness of breath, Syncope vomiting. This is a 44 years old female with no chronic medical conditions that presents to the ED with complaints of right sided forehead pain after benig stung by a wasp. patient states she is allergic. . 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 - Social history:: Smoking status: Patient/guardian denies using tobacco. - Ebola Screening: : No symptoms or risks identified at this time. ROS: 18:13 Constitutional: Negative for fever, chills, and weight loss, Cardiovascular: Negative jmm for chest pain, palpitations, and edema, Respiratory: Negative for shortness of breath, cough, wheezing, and pleuritic chest pain. 18:13 Back: Negative for injury and pain. 18:13 Abdomen/GI: Positive for nausea, Negative for abdominal pain, vomiting, diarrhea. 18:13 Skin: Positive for erythema, swelling. 18:13 All other systems are negative. Exam: 18:13 Neck: Trachea midline, Supple Chest/axilla: Normal chest wall appearance and motion. jmm Cardiovascular: Regular rate and rhythm. No edema appreciated Respiratory: Normal respirations, no respiratory distress appreciated Abdomen/GI: Non distended, soft Back: Normal ROM 18:13 Constitutional: The patient appears alert, awake, anxious. 18:13 Head/face: mild erythema noted to the right side of the forehead. TTP. . 18:13 ENT: no pharyngeal edema appreciated. 18:13 Skin: mild erythema noted to the right side of the forehead. 18:13 Neuro: Orientation: is normal, Mentation: is normal, Memory: is normal. 18:13 Psych: Behavior/mood is pleasant, cooperative, anxious. Vital Signs: 18:10 BP 121 / 89; Pulse 77; Resp 16; Temp 97.8; Pulse Ox 98% on R/A; Weight 72.57 kg; Height la1 5 ft. 9 in. (175.26 cm); 19:00 BP 121 / 70; Pulse 45; Resp 18; Pulse Ox 100% ; wh 20:00 BP 104 / 64; Pulse 45; Resp 18; Pulse Ox 100% on R/A; wh 18:10 Body Mass Index 23.63 (72.57 kg, 175.26 cm) la1 MDM: 18:14 Patient medically screened. [facility] 20:03 Data reviewed: vital signs, nurses notes. Counseling: I had a detailed discussion with jacky the patient and/or guardian regarding: the historical points, exam findings, and any diagnostic results supporting the discharge/admit diagnosis, the need for outpatient follow up, to return to the emergency department if symptoms worsen or persist or if there are any questions or concerns that arise at home. ED course: Patient is alert and non toxic in appearance in the ED. No pharyngeal edema or resp distress appreciated. I do not suspect anaphylaxis. Patient is given strict return precautions. Patient understood and agrees with the plan of care. . 15 18:13 Order name: Saline Lock; Complete Time: 18:21 [facility] Administered Medications: 18:52 Drug: diphenhydrAMINE 50 mg Route: IVP; Site: left antecubital; 20:13 Follow up: Response: No adverse reaction 18:52 Drug: Pepcid 20 mg Route: IVP; Site: left antecubital; 20:13 Follow up: Response: No adverse reaction 18:52 Drug: Decadron - Dexamethasone 10 mg Route: IVP; Site: left antecubital; 20:13 Follow up: Response: No adverse reaction 18:53 Drug: NS 0.9% 1000 ml Route: IV; Rate: 1 bolus; Site: left antecubital; 20:13 Follow up: Response: No adverse reaction; IV Status: Completed infusion 20:13 Drug: Motrin 800 mg Route: PO; 20:14 Follow up: Response: No adverse reaction wh Disposition: 05/14 08:25 Co-signature as Attending Physician, Warren Pierson MD I agree with the assessment and [facility] plan of care. Disposition: 05/13/19 20:05 Discharged to Home. Impression: Toxic effect of venom of wasps, accidental (unintentional). - Condition is Stable. - Discharge Instructions: Bee, Wasp, or Hornet Sting, Adult. - Prescriptions for Bactroban 2 % Topical Cream - Apply to affected area 1 application by TOPICAL route every 12 hours; 15 gram. Hydroxyzine HCl 25 mg Oral Tablet - take 1 tablet by ORAL route every 6 hours As needed; 30 tablet. Prednisone 20 mg Oral Tablet - take 3 tablet by ORAL route once daily for 5 days; 15 tablet. Ultracet 37.5- 325 mg Oral Tablet - take 1 tablet by ORAL route every 6 hours - for up to 5 days; do not exceed 8 tablets per day.; 12 tablet. - Medication Reconciliation Form, Thank You Letter, Antibiotic Education, Prescription Opioid Use form. - Follow up: Private Physician; When: 2 - 3 days; Reason: Recheck today's complaints, Continuance of care, Re-evaluation by your physician. Signatures: Warren Pierson MD MD cha Mickail, Joel, PA PA jmm Attema, Lee RN RN laTom Nguyen Corrections: (The following items were deleted from the chart) 05/13 20:32 20:05 05/13/2019 20:05 Discharged to Home. Impression: Toxic effect of venom of wasps, wh accidental (unintentional). Condition is Stable. Forms are Medication Reconciliation Form, Thank You Letter, Antibiotic Education, Prescription Opioid Use. Follow up: Private Physician; When: 2 - 3 days; Reason: Recheck today's complaints, Continuance of care, Re-evaluation by your physician. jacky
[2019-05-13] MEDS ORDERED: IBUPROFEN 400 MG TAB ONE (20:07)
[2019-05-13 20:55] VITALS: TEMP 97.8
[2019-05-13 20:56] VITALS: O2SAT 100
[2019-05-13 20:58] VITALS: BP 104/64
== END 2019-05-13 20:32 | disposition home or self-care (01) ==
LOC: ER 18:03
DX: T63.461A Toxic effect of venom of wasps, accidental (unintentional), initial encounter (principal)
CPT/HCPCS: 96375; 96374; 99284; J1100; J7030

== ENCOUNTER 2020-09-19 11:00 | Day surgery (SDC) | payer SELFPAY ==
[2020-09-14 15:16] LABS: Urine Appearance CLEAR; Urine Bilirubin NEGATIVE (NEG); Urine Blood NEGATIVE (NEG); Urine Color YELLOW; Urine Glucose NEGATIVE (NEG); Urine Protein NEGATIVE (NEG); Urine Specific Gravity 1.025 (1.005-1.030); Urine Urobilinogen 0.2 mg/dL (0.2-1.0)
[2020-09-14 15:23] LABS: Absolute Lymphocytes (CBC) 2.4 K/uL (0.7-4.9); Basophils % 0.7 % (0-1.3); Hematocrit 37.3 % (36.0-45.0); Lymphocytes % 30.1 % (15.3-44.8); MPV 9.9 fL (7.6-11.3); RBC Red Blood Cell Count 4.17 M/uL (3.86-4.86)
[2020-09-14 15:43] LABS: Urine Microscopic Reflex NO UMIC
[2020-09-19 11:26] LABS: Specific Gravity 1.025 (1.005-1.030)
[2020-09-19] MEDS ORDERED: SCOPOLAMINE HYDROBROMIDE PATCH TD ONE (11:35)
[2020-09-19] MEDS ORDERED: Ringers Lactate 1,000 ML IV ONE ×2 (11:35→14:55)
[2020-09-19] MEDS ORDERED: LIDOCAINE 2% MPF 5 ML VIAL ONE (13:49)
[2020-09-19] MEDS ORDERED: MIDAZOLAM HCL 2 MG/2 ML INJ ONE (13:49)
[2020-09-19] MEDS ORDERED: dexAMETHasone 10 MG/ML VIAL ONE (13:49)
[2020-09-19] MEDS ORDERED: FENTANYL CITR 250 MCG/5 ML ONE (13:49)
[2020-09-19] MEDS ORDERED: ONDANSETRON 4 MG/2 ML VIAL ONE (13:50)
[2020-09-19] MEDS ORDERED: propofoL 200 MG/20 ML VIAL IV ONE (13:50)
[2020-09-19] MEDS ORDERED: ROCURONIUM 50 MG/5 ML VIAL IV ONE (13:50)
[2020-09-19] MEDS: BUPIVACAINE 0.25% PF 30 ML VIAL ONE ×2 (14:20→14:44)
[2020-09-19] MEDS ORDERED: GLYCOPYRROLATE 0.2 MG/ML SYR ONE ×2 (14:53→15:32)
[2020-09-19] MEDS ORDERED: KETOROLAC 30 MG/ML INJ ONE (15:32)
[2020-09-19] MEDS ORDERED: NEOSTIGMINE 1 MG/ML -5 ML ONE (15:32)
[2020-09-19] MEDS: MORPHINE 4 MG/ML SYR ONE ×4 (15:55→16:30)
[2020-09-19] MEDS: MEPERIDINE HCL 25 MG/ML SYR ONE ×2 (16:05→16:10)
[2020-09-19] MEDS ORDERED: PROMETHAZINE INJ 25 MG/ML AMP ONE (16:14)
[2020-09-19 17:10] VITALS: BP 118/64; TEMP 98; O2SAT 100
[2020-09-19] MEDS ORDERED: HYDROCODONE/APAP 5/325 MG TAB ONE (17:35)
--- NOTE | 2020-09-19 20:05 | OP ---
Date of Procedure: 09/19/2020 Surgeon: Kena Jonas MD Golf Course Ranger: Mahsa Henry. Preoperative Diagnoses: Irregular heavy bleeding, right ovarian cyst, dysmenorrhea. Postoperative Diagnoses: Irregular heavy bleeding, right ovarian cyst, dysmenorrhea, and endometrios is, physiological bilateral ovarian cysts. Anesthesia: General endotracheal. Specimens: Endometrial curettings and endometriosis from the posterior uterine wall, left broad liga ment and right uterosacral ligament. Complications: No complications. Drains: No drains. Condition: Stable. Findings: Uterus was retroflexed. Uterine cavity empty, thickened endometrium. Adequate sampling w as done, in the peritoneal cavity. Both ovaries had simple cysts and they were drained. The cyst wa ll was very flimsy consistent with a physiologic cyst that did not warrant removal. Then, there was no evidence of any tubal abnormality. Endometriosis was found as dictated. Both ureters free and un remarkable in their courses. Indications: The patient is a 45-year-old with irregular bleeding. She was evaluated with a transva ginal ultrasound. Endometrium was found to be thickened, however. Incidentally, there was a right o varian cyst that was visualized. All the findings were discussed with the patient and she was recomm ended to have endometrial sampling. As an outpatient, but she had not much tolerance for pain and so she requested a hospital procedure. Then, later on, she has been counseled about the likelihood of the cyst on the right side being benign, physiological that it could resolve spontaneously and did no t warrant removal or biopsy or laparoscopy. However, she was extremely anxious and concerned and wan natalie her cyst evaluated and after discussing the benefits and risks of a laparoscopy with right ovaria n cystectomy if same. We discussed this with the patient and the patient was consented. The patient also requested for possibly getting a hysterectomy with bilateral salpingo-oophorectomy and this was extremely aggressive and this was discussed as such and the patient was counseled against this at th is time until further evaluation and more data was available that would warrant that procedure. Afte r consenting her appropriately, she was brought to the hospital's preop area. She was re-consented. Then, she was taken back to the operating room and in the preop area, she had requested that if ther e was something abnormal that she permits to get the uterus and tubes and ovaries out. However, I re iterated the same discussion and recommendation that I had preoperatively based on standard of care, the characteristics of the ovary on transvaginal ultrasound. There was no indication for hysterectom y or bilateral salpingo-oophorectomy. Then, she was brought to the OR. Description Of Procedure: She was placed in supine fashion on the operating table. General anesthes ia given, placed in a dorsal lithotomy position using Bridger stirrups. Abdomen, vulva, vagina, and pe rineum prepped and draped in a sterile fashion. Haynes placed to drain the bladder. Speculum placed to expose the cervix. Anterior lip was grasped with 2 Allis clamps. The uterus was clearly retrofle xed using a SlimLine diagnostic hysteroscope. The uterine cavity was entered traversing the cervical canal under direct vision. No intracavitary lesions were found. Endometrium appeared to be thicken ed. Both tubal ostia were well visualized. Scope was removed. Endometrial curettings were performe d with #1 curette. Adequate sampling was performed and sent for permanent pathology. Uterine manipu lator was introduced into the place, so that just the procedure could be performed and Haynes was left attached. 1 cm infraumbilical incision made with a scalpel using the open laparoscopy technique. Fascia was in cised, tagged with 0 Vicryl sutures. S-retractors were placed. The peritoneum entered sharply and H asson introduced into the peritoneal cavity, insufflated adequately. After confirming the placement and looking at the site of entry and there was no evidence of any injury, we proceeded to place the p atient in Trendelenburg position. 5 mm suprapubic and left lower quadrant ports were placed under di rect vision. The patient was then examined. The entire upper abdominal surfaces unremarkable, gallb ladder unremarkable. Omentum normal. No other peritoneal implants for endometriosis. The patient w as placed in Trendelenburg. Both the ovaries were visualized. Both tubes were visualized, unremarka ble just simple cystic structures, physiological cysts present on the posterior left wall of the uter us, on the serosa, there were implants of endometriosis very evident extending towards the incision o f the uterosacral ligament. So, this was picked up with a grasper and the entire complex of lesions was excised. There was another small lesion inferior to it, pretty close to the distal uterosacral i nsertion. This was excised as well. Then, the uterosacral medial aspect at least a 1.5 cm proximal to the insertion, there was an implant on the medial aspect. This was picked up with the help of the curved tip grasper and excised with t he help of the monopolar needle. Full excision was performed and all implants were handed off for pe rmanent pathology. The ovarian cysts were drained with the help of the monopolar needle. There were just simple fluid-f illed cysts. No evidence of any abnormalities. There was no indication for excision. The ovary its elf was very small and this would disrupt the function and there was no benefit. Thorough irrigation and suction were performed after this. Instruments were removed and ports were removed under direct vision. Marcaine was injected at the le ghassan of the fascia and the skin on all 3 sites. The fascia at the umbilicus was closed after desuffla ting the cavity and taking the Lisbet out. A [id number] 0 Vicryl suture was placed and tied german n. All skin incisions closed with interrupted 4-0 Vicryl. VCare uterine manipulator and the Haynes w ere removed. Instrument, needle, and sponge counts were correct at the end of the case. The patient tolerated the procedure well. She will be following up with us in the office in 1 week. HARDIK/ZAHIRA Voice ID: [id number] Report ID: [id number]
== END 2020-09-19 17:54 | disposition home or self-care (01) ==
LOC: OR 11:00
PROVIDERS: ATTEND Obstetrics & Gynecology
PROC: 0DBW4ZZ Excision of Peritoneum, Percutaneous Endoscopic Approach (ICD-10-PCS; 2020-09-19)
PROC: 0UB94ZZ Excision of Uterus, Percutaneous Endoscopic Approach (ICD-10-PCS; 2020-09-19)
PROC: 0UJD8ZZ Inspection of Uterus and Cervix, Via Natural or Artificial Opening Endoscopic (ICD-10-PCS; 2020-09-19)
PROC: 0UDB7ZX Extraction of Endometrium, Via Natural or Artificial Opening, Diagnostic (ICD-10-PCS; principal; 2020-09-19 13:30)
DX: N92.1 Excessive and frequent menstruation with irregular cycle (principal); N94.10 Unspecified dyspareunia; N83.201 Unspecified ovarian cyst, right side; N83.202 Unspecified ovarian cyst, left side; N80.3 Endometriosis of pelvic peritoneum; N80.0 Endometriosis of uterus; N95.1 Menopausal and female climacteric states; F33.1 Major depressive disorder, recurrent, moderate
CPT/HCPCS: 36415; 81003; 81025; 85025; 86850; 86900; 86901; 88305; J1100; J2175; J2250; J2405; J2550; J2704; J2710; J3010; J7120; U0002

== ENCOUNTER 2020-10-05 12:41 | Emergency (ER) | payer SELFPAY ==
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
--- NOTE | 2020-10-05 13:13 | ER ---
Nurse's Notes [facility] Name: Vickie Davila Age: 45 yrs Sex: Female : 1975 Arrival Date: 10/05/2020 Time: 13:03 Bed Waiting Private MD: Diagnosis: Presentation: 10/05 13:03 Chief complaint: EMS states: abdominal pain that started 2 weeks ago after having em surgery for endometriosis, denies N/V or fever, IV LAC, given 30 mg Toradol. Coronavirus screen: Client denies travel out of the [place] in the last 14 days. Ebola Screen: Patient negative for fever greater than or equal to 101.5 degrees Fahrenheit, and additional compatible Ebola Virus Disease symptoms Patient denies exposure to infectious person. Patient denies travel to an Ebola-affected area in the 21 days before illness onset. No symptoms or risks identified at this time. Initial Sepsis Screen: Does the patient meet any 2 criteria? No. Patient's initial sepsis screen is negative. Does the patient have a suspected source of infection? No. Patient's initial sepsis screen is negative. Risk Assessment: Do you want to hurt yourself or someone else? Patient reports no desire to harm self or others. Onset of symptoms was October 05, 2020. 13:03 Method Of Arrival: EMS: [facility] em 13:03 Acuity: CRISTAL 3 em PHARMACOMETRICIAN: 13:06 LMP 09/29/2020 em Historical: - Allergies: 13:06 No Known Allergies; em - PMHx: 13:06 Endometrosis; em - PSHx: 13:06 Appendectomy; em - Immunization history:: Flu vaccine is not up to date. - Social history:: Smoking status: Patient denies any tobacco usage or history of. Assessment: 13:11 Reassessment: pt notified of current wait time, pt states she cannot wait in the lobby em for 1-2 hours, request to remove IV. Vital Signs: 13:03 BP 113 / 75; Pulse 59; Resp 18; Temp 98.4(O); Pulse Ox 100% on R/A; Weight 72.57 kg; em Height 5 ft. 9 in. (175.26 cm); Pain 10/10; 13:03 Body Mass Index 23.63 (72.57 kg, 175.26 cm) em ED Course: 13:03 Patient arrived in ED. em 13:03 Maintain EMS IV. Dressing intact. Good blood return noted. Site clean \T\ dry. Gauge \T\ em site: 20 LAC. 13:06 Triage completed. em 13:06 Arm band placed on. em 13:12 No provider procedures requiring assistance completed. IV discontinued, intact, em bleeding controlled, No redness/swelling at site. Pressure dressing applied. Administered Medications: No medications were administered Outcome: 13:13 Patient left the ED. em Signatures: Yeison Lund, RN RN em
[2020-10-05 13:22] VITALS: BP 113/75; TEMP 98.4; O2SAT 100
== END 2020-10-05 13:13 | disposition left against medical advice (07) ==
LOC: ER 12:41
DX: Z53.21 Procedure and treatment not carried out due to patient leaving prior to being seen by health care provider (principal)
CPT/HCPCS: 99282

== ENCOUNTER 2020-10-09 20:39 | Emergency (ER) | payer OTHER ==
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
--- OUTSIDE RECORDS SUMMARY | 2020-10-09 20:41 | XMS REPORT | Continuity of Care Document ---
:1975 Author Organization [employer] Care Team Providers Name Role Phone [employer] Unavailable Un available Problems Problem Status Onset [...] kg, Priority: STAT, Start date: 08/06/19 16:17:00 DENTAL INTERN, Stop date: 08/06/19 16:17:00 DENTAL INTERN cyclobenzaprine 10 mg, Inactive Route: PO, 019 [facility] ONCE, [place] Dosing Weight 72.727, kg, Priority: STAT, Start date: 08/06/19 16:17:00 DENTAL INTERN, Stop date: 08/06/19 16:17:00 DENTAL INTERN Allergies, Adverse Reactions, Alerts Substance Category Reaction Severity Reaction Status Date Comments S ource type Reported No Known Assertion Drug MH Medication allergy Great er Allergies Height s Immunizations No Data Provided for This Section Results No Data Provided for This Section Pathology Reports No Data Provided for This Section Diagnostic Reports Report Value Date Source Shoulder series DX PROCEDURE INFORMATION: 08/06/2019 [facility] Exam: XR Left Shoulder Exam [...] Kiran Weaver MD On 08/06/2019 16:28:34; VR-SER [id number] Spine cervical wo Radiation Dose CTDIVOL = 0 (mGy): DLP = 568 (mGy-cm) 08/06/2019 [facility] [place] contrast CT PROCEDURE INFORMATION: Exam: CT Cervical [...] Loki Light MD On 08/06/2019 17:35:15; VR- [id number] Consultation Notes No Data Provided for This [...] [place] Diastolic (mm Hg) 76 08/06/2019 [facility] Heart Rate 62 08/06/2019 [facility] [place] Respitory Rate 16 08/06/2019 [facility] Temperature Oral (F) 98.0 F 08/06/[address] [place] Height 175.26 cm 08/06/2019 [facility] BMI Calculated 23.68 08/06/2019 [facility] Weight 72.727 08/06/2019 [facility] Encounters Location Location Encounter Encounter Reason Attending ADM ND Stat us Source Details Type Number For Provider Date Date [facility] [id number] Guy 08/06 08/07 Owen Paredes Jr [facility] [place] Procedures No Data Provided [...]
[2020-10-09] MEDS ORDERED: FENTANYL CITR 100 MCG/2 ML ONE (21:15)
[2020-10-09] MEDS ORDERED: NA CHLORIDE 0.9% 1,000 ML ONE (21:15)
[2020-10-09] MEDS ORDERED: ONDANSETRON 4 MG/2 ML VIAL ONE (21:15)
[2020-10-09 21:46] LABS: Absolute Lymphocytes (CBC) 3.1 K/uL (0.7-4.9); Basophils % 0.9 % (0-1.3); Hematocrit 37.5 % (36.0-45.0); Lymphocytes % 29.9 % (15.3-44.8); MPV 9.8 fL (7.6-11.3); RBC Red Blood Cell Count 4.29 M/uL (3.86-4.86)
[2020-10-09 21:56] LABS: Albumin 3.8 g/dL (3.4-5.0); Bilirubin Direct 0.1 mg/dL (0-0.2); Bilirubin Total 0.4 mg/dL (0.2-1.0); Potassium 3.8 mmol/L (3.5-5.1); Protein, Total 7.8 g/dL (6.4-8.2)
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
--- NOTE | 2020-10-09 22:49 | EDPHYS ---
Physician Documentation [facility] Name: Vickie Davila Age: 45 yrs Sex: Female : 1975 Arrival Date: 10/09/2020 Time: 20:40 Bed 18 Private MD: ED Physician Isaac Joseph HPI: 10/09 21:00 This 45 yrs old Female presents to ER via Wheelchair with complaints of pm1 Vaginal Pain, Post Surgical Pain. 21:00 The patient presents with suprapubic pain. pm1 21:00 Onset: The symptoms/episode began/occurred 3 week(s) ago. The symptoms do not radiate. pm1 Associated signs and symptoms: Pertinent negatives: nausea, vomiting, and diarrhea, dysuria, fever, vaginal bleeding. The symptoms are described as sharp, Burning pain from vaginal area to suprapubic area. Modifying factors: The symptoms are alleviated by nothing, the symptoms are aggravated by nothing. Severity of pain: in the emergency department the pain is actually worse. Has seen Dr. Jonas for the same issue multiple times for the same complaint. 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 - Social history:: Smoking status: Patient denies any tobacco usage or history of. ROS: 21:00 Constitutional: Negative for fever, chills, and weight loss, Cardiovascular: Negative pm1 for chest pain, palpitations, and edema, Respiratory: Negative for shortness of breath, cough, wheezing, and pleuritic chest pain. 21:00 Back: Negative for injury and pain, : Negative for injury, bleeding, discharge, and swelling, MS/Extremity: Negative for injury and deformity, Skin: Negative for injury, rash, and discoloration, Neuro: Negative for headache, weakness, numbness, tingling, and seizure. 21:00 Abdomen/GI: Positive for abdominal pain, of the suprapubic area, Negative for nausea, vomiting, and diarrhea, constipation. Exam: 21:00 Constitutional: This is a well developed, well nourished patient who is awake, alert, pm1 and in no acute distress. Head/Face: Normocephalic, atraumatic. 21:00 Back: No spinal tenderness. No costovertebral tenderness. Full range of motion. Skin: Warm, dry with normal turgor. Normal color with no rashes, no lesions, and no evidence of cellulitis. MS/ Extremity: Pulses equal, no cyanosis. Neurovascular intact. Full, normal range of motion. 21:00 Cardiovascular: Exam negative for acute changes, Rate: normal, Rhythm: regular, Pulses: no pulse deficits are appreciated. 21:00 Respiratory: Exam negative for acute changes, respiratory distress, shortness of breath. 21:00 Abdomen/GI: Inspection: abdomen appears normal, Palpation: soft, in all quadrants, mild abdominal tenderness, in the suprapubic area. 21:00 Neuro: Exam negative for acute changes, Orientation: is normal, Motor: is normal, moves all fours. Vital Signs: 20:51 BP 94 / 64; Pulse 108; Resp 20; Temp 98.2; Pulse Ox 100% ; Pain 10/10; ll1 20:55 Weight 72.57 kg; Height 5 ft. 9 in. (175.26 cm); ll1 22:09 BP 100 / 52; Pulse 72; Resp 18; Pulse Ox 100% on R/A; mg2 23:03 BP 92 / 53; Pulse 70; Resp 18; Pulse Ox 100% on R/A; mg2 20:55 Body Mass Index 23.63 (72.57 kg, 175.26 cm) ll1 MDM: 20:56 Patient medically screened. pm1 22:48 Data reviewed: vital signs. Data interpreted: Pulse oximetry: on room air is 100 %. pm1 Interpretation: normal. Counseling: I had a detailed discussion with the patient and/or guardian regarding: the historical points, exam findings, and any diagnostic results supporting the discharge/admit diagnosis, lab results, radiology results, the need for outpatient follow up, Dr. Magana, to return to the emergency department if symptoms worsen or persist or if there are any questions or concerns that arise at home. 10/10 00:00 ED course: Explained to patient unable to prescribe narcotics due to recent legislation pm1 and ER is not set up for electronic prescriptions. 10/09 20:59 Order name: Basic Metabolic Panel; Complete Time: 22:04 pm1 10/09 20:59 Order name: CBC with Diff; Complete Time: 21:50 pm1 10/09 20:59 Order name: Hepatic Function; Complete Time: 22:04 pm1 10/09 20:59 Order name: Lipase; Complete Time: 22:04 pm1 10/09 20:59 Order name: Urine Microscopic Only; Complete Time: 23:56 pm1 10/09 23:05 Order name: Urine Dipstick--Ancillary (enter results); Complete Time: 23:46 mw2 10/09 20:59 Order name: IV Saline Lock; Complete Time: 21:08 pm1 10/09 20:59 Order name: CT Abd/Pelvis - IV Contrast Only pm1 10/09 23:05 Order name: Urine --Ancillary (enter results); Complete Time: 23:46 mw2 10/09 23:17 Order name: CREATININE WHOLE BLOOD; Complete Time: 23:46 EDMS 10/09 20:59 Order name: Labs collected and sent; Complete Time: 21:08 pm1 10/09 20:59 Order name: Urine Dipstick-Ancillary (obtain specimen); Complete Time: 23:03 pm1 10/09 20:59 Order name: Urine Test (obtain specimen); Complete Time: 23:03 pm1 Administered Medications: 10/09 21:08 Drug: fentaNYL (PF) 50 mcg Route: IVP; Site: right forearm; mg2 22:14 Follow up: Response: No adverse reaction mg2 21:08 Drug: Zofran (Ondansetron) 4 mg Route: IVP; Site: right forearm; mg2 22:14 Follow up: Response: No adverse reaction mg2 21:08 Drug: NS 0.9% 1000 ml Route: IV; Rate: 1000 ml; Site: right forearm; mg2 22:14 Follow up: IV Status: Completed infusion; IV Intake: 1000ml mg2 21:45 Drug: fentaNYL (PF) 50 mcg Route: IVP; Site: right forearm; mg2 22:42 Follow up: Response: No adverse reaction mg2 Disposition: 10/10 07:01 Co-signature as Attending Physician, Isaac Joseph MD. pkl Disposition: 10/09/20 23:57 Discharged to Home. Impression: Unspecified abdominal pain. - Condition is Stable. - Discharge Instructions: Abdominal Pain, Adult. - Prescriptions for Diclofenac Sodium 75 mg Oral Tablet Sustained Release - take 1 tablet by ORAL route 2 times per day; 30 tablet. - Medication Reconciliation Form, Thank You Letter, Antibiotic Education, Prescription Opioid Use form. - Follow up: Emergency Department; When: As needed; Reason: Worsening of condition. Follow up: Kena Jonas MD; When: 2 - 3 days; Reason: Recheck today's complaints, Continuance of care, Re-evaluation by your physician. - Problem is new. - Symptoms have improved. Signatures: Dispatcher [employer] EDOR Isaac Joseph MD MD pkl Marinas, Patrick, NP MODERN LANGUAGES PROFESSOR pm1 Tom Cash RN RN Milo Encarnacion RN RN [facility] Tara Stubbs RN RN ll1 Corrections: (The following items were deleted from the chart) 10/09 22:55 22:49 10/09/2020 22:49 Discharged to Home. Impression: Unspecified abdominal pain. pm1 Condition is Stable. Forms are Medication Reconciliation Form, Thank You Letter, Antibiotic Education, Prescription Opioid Use. Follow up: Emergency Department; When: As needed; Reason: Worsening of condition. Follow up: Kena Jonas; When: 2 - 3 days; Reason: Recheck today's complaints, Continuance of care, Re-evaluation by your physician. Problem is new. Symptoms have improved. pm1 10/10 00:19 10/09 23:57 10/09/2020 23:57 Discharged to Home. Impression: Unspecified abdominal wh pain. Condition is Stable. Forms are Medication Reconciliation Form, Thank You Letter, Antibiotic Education, Prescription Opioid Use. Follow up: Emergency Department; When: As needed; Reason: Worsening of condition. Follow up: Kena Jonas; When: 2 - 3 days; Reason: Recheck today's complaints, Continuance of care, Re-evaluation by your physician. Problem is new. Symptoms have improved. pm1
[2020-10-09 23:40] LABS: Urine Blood NEGATIVE (NEG); Urine Glucose NEGATIVE (NEG); Urine Protein NEGATIVE (NEG); Urine pH 5.5 (5.0-7.0)
[2020-10-09 23:52] LABS: Urine Bacteria <20 /HPF (<20); Urine RBC NONE SEEN /HPF (NONE SEEN)
[2020-10-10 00:24] VITALS: TEMP 98.2; O2SAT 100
[2020-10-10 00:27] VITALS: BP 92/53
--- NOTE | 2020-10-10 10:31 | RAD REPORT ---
EXAM DESCRIPTION: CT - Abdomen Pelvis W Contrast - 10/10/2020 6:23 am CLINICAL HISTORY: The patient is 45 years old and is Female; ABD PAIN TECHNIQUE: Axial computed tomography images of the abdomen and pelvis with intravenous contrast. S agittal and coronal reformatted images were created and reviewed. This CT exam was performed using one or more of the following dose reduction techniques: automated exposure control, adjustment of t he mA and/or kV according to patient size, and/or use of iterative reconstruction technique. COMPARISON: No relevant prior studies available. FINDINGS: LUNG BASES: Unremarkable. No mass. No consolidation. ABDOMEN: LIVER: Unremarkable. No mass. GALLBLADDER AND BILE DUCTS: No calcified stones. No ductal dilation. PANCREAS: No ductal dilation. No mass. SPLEEN: Unremarkable. ADRENALS: Unremarkable. No mass. KIDNEYS AND URETERS: Punctate bilateral intrarenal calcifications are present. A 0.7 cm right re nal cyst is present. The kidneys enhance symmetrically. There is no obstructing renal or ureteral frantz culus. No hydronephrosis or hydroureter of either kidney is seen. STOMACH AND BOWEL: The stomach is moderately distended with food contents. The small bowel is no rmal in caliber. A mild to moderate amount of stool is present throughout the colon. There is no muco dong thickening or evidence of bowel obstruction. PELVIS: APPENDIX: No findings to suggest acute appendicitis. BLADDER: Unremarkable. No mass. REPRODUCTIVE: Unremarkable as visualized. ABDOMEN and PELVIS: INTRAPERITONEAL SPACE: Unremarkable. No free air. No significant fluid collection. BONES/JOINTS: No acute fracture. SOFT TISSUES: The soft tissues are normal. VASCULATURE: Unremarkable. No abdominal aortic aneurysm. LYMPH NODES: Unremarkable. No enlarged lymph nodes. IMPRESSION: Punctate bilateral nephrolithiasis without obstruction. Electronically signed by: Libertad Greene MD 10/09/2020 10:30 PM SURGICAL GARMENT FITTER Due to temporary technical issues with the PACS/Fluency reporting system, reports are being signed by the in house radiologist without review as a courtesy to ensure prompt reporting. The interpreting r adiologist is fully responsible for the content of the report.
== END 2020-10-10 00:19 | disposition home or self-care (01) ==
LOC: ER 20:39
DX: R10.9 Unspecified abdominal pain (principal)
CPT/HCPCS: 85025; 80048; 36415; 81025; 82565; 80076; 83690; 74177; Q9967; J3010; J7030; J2405; 81003; 81015; 96361; 96374; 96375; 99284

== ENCOUNTER 2021-02-02 21:47 | Emergency (ER) | payer OTHER ==
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
[2021-02-02] MEDS ORDERED: LORazepam 2 MG/ML VIAL ONE (22:17)
[2021-02-02] MEDS ORDERED: KETOROLAC 30 MG/ML INJ ONE (22:18)
[2021-02-02] MEDS ORDERED: FAMOTIDINE 20 MG/2 ML VIAL IV ONE (22:18)
[2021-02-02] MEDS ORDERED: NA CHLORIDE 0.9% 1,000 ML ONE (22:18)
[2021-02-02 23:01] LABS: Absolute Lymphocytes (CBC) 1.9 K/uL (0.7-4.9); Basophils % 0.6 % (0-1.3); Hematocrit 33.9 % (36.0-45.0); Lymphocytes % 17.4 % (15.3-44.8); MPV 9.4 fL (7.6-11.3); RBC Red Blood Cell Count 3.85 M/uL (3.86-4.86)
[2021-02-02 23:06] LABS: Protime INR 0.95
[2021-02-02 23:21] LABS: ALT/SGPT 53 U/L (12-78); AST/SGOT 56 U/L (15-37); Albumin 3.4 g/dL (3.4-5.0); Alkaline Phosphatase 66 U/L (45-117); BUN Blood Urea Nitrogen 12 mg/dL (7-18); Bicarbonate 27 mmol/L (21-32); Bilirubin Direct 0.1 mg/dL (0-0.2); Bilirubin Total 0.5 mg/dL (0.2-1.0); Glucose Level 100 mg/dL (74-106); Potassium 3.7 mmol/L (3.5-5.1); Protein, Total 7.3 g/dL (6.4-8.2); Sodium Level 141 mmol/L (136-145)
[2021-02-02 23:22] LABS: Lipase 137 U/L (73-393); Magnesium 2.1 mg/dL (1.8-2.4); NT PRO-BNP 134 pg/mL (<125); Troponin (Emerg Dept Use Only) < 0.02 ng/mL (0.0-0.045)
--- NOTE | 2021-02-03 00:23 | ER ---
Nurse's Notes [facility] Name: Vickie Davila Age: 45 yrs Sex: Female : 1975 Arrival Date: 02/02/2021 Time: 21:48 Bed 4 Private MD: Diagnosis: Presentation: 02/02 21:55 Chief complaint: EMS states: Reports she has been having dizziness, nausea and chest ea pain. Reports she had a hysterectomy on Friday. Coronavirus screen: At this time, the client does not indicate any symptoms associated with coronavirus-19. Ebola Screen: No symptoms or risks identified at this time. Initial Sepsis Screen: Does the patient meet any 2 criteria?. 21:55 Method Of Arrival: EMS: [facility] ea Historical: - Allergies: 22:06 No Known Allergies; ea - PMHx: 22:06 Endometrosis; ea - PSHx: 22:06 Appendectomy; ea - Immunization history:: Adult Immunizations up to date. - Social history:: Smoking status: Patient denies any tobacco usage or history of. Screenin:54 Abuse screen: Denies threats or abuse. Nutritional screening: No deficits noted. ea Tuberculosis screening: No symptoms or risk factors identified. Fall Risk IV access (20 points). Assessment: 22:05 General: Appears uncomfortable, Behavior is anxious, restless. Pain: Denies pain. ea Neuro: Level of Consciousness is awake, alert, obeys commands, Oriented to person, place, time, Reports dizziness. Cardiovascular: Patient's skin is warm and dry. Respiratory: Airway is patent Respiratory effort is even, unlabored, Respiratory pattern is regular, symmetrical. Derm: Skin is pink, warm \T\ dry. 22:12 Reassessment: Pt currently refusing treatment. ea 22:52 Reassessment: pt refusing all medication at this time. bb 02/03 00:15 Reassessment: Pt refused CT and treatment. AMA explained pt refused to sign forms. ea Vital Signs: 02/02 22:06 BP 132 / 74; Pulse 55; Resp 18; Pulse Ox 98% ; ea ED Course: 21:48 Patient arrived in ED. mw2 21:50 Warren Pablo PA is PHCP. cp 21:50 Greg Hall MD is Attending Physician. cp 21:54 Mitchell, Shanel, RN is Primary Nurse. ea 21:54 Inserted saline lock: 20 gauge in right wrist, using aseptic technique. ea 21:55 Patient has correct armband on for positive identification. Bed in low position. Call ea light in reach. Side rails up X2. 22:09 XRAY Chest (1 view) In Process Unspecified. EDMS 22:11 Arm band placed on right wrist. Patient placed in an exam room, on a stretcher, on ea pulse oximetry. 22:51 Initial lab(s) drawn, by me, sent to lab. Inserted saline lock: 20 gauge in right bb antecubital area, using aseptic technique. Blood collected. 08 00:16 No provider procedures requiring assistance completed. IV discontinued, intact, ea bleeding controlled, No redness/swelling at site. Pressure dressing applied. Administered Medications: No medications were administered Outcome: 00:16 AMA Other Pt refused to sign AMA form ea 00:22 Patient left the ED. ea Signatures: Dispatcher [employer] EDMS Rupa Ramriez RN RN Warren Meier PA PA cp Antunez, Elena, RN RN Dann Neff mw2
--- NOTE | 2021-02-03 00:23 | EDPHYS ---
Physician Documentation [facility] Name: Vickie Davila Age: 45 yrs Sex: Female : 1975 Arrival Date: 02/02/2021 Time: 21:48 Bed 4 Private MD: ED Physician Greg Hall HPI: 02/02 22:00 This 45 yrs old Female presents to ER via EMS with complaints of Chest Pain. cp 22:00 The patient or guardian reports chest pain that is located primarily in the substernal cp area. 22:00 Onset: today. cp 22:00 The pain does not radiate. Associated signs and symptoms: Pertinent positives: cp abdominal pain, dizziness, nausea, shortness of breath, Pertinent negatives: lower extremity pain, lower extremity swelling, syncope, active vomiting. The chest pain is described as sharp. Historical: - Allergies: 22:06 No Known Allergies; ea - PMHx: 22:06 Endometrosis; ea - PSHx: 22:06 Appendectomy; ea - Immunization history:: Adult Immunizations up to date. - Social history:: Smoking status: Patient denies any tobacco usage or history of. ROS: 22:05 Constitutional: Positive for poor PO intake, Negative for body aches, chills, fever. cp 22:05 Eyes: Negative for injury, pain, redness, and discharge. cp 22:05 ENT: Negative for ear pain, sore throat, difficulty swallowing, difficulty handling secretions. 22:05 Cardiovascular: Positive for chest pain, Negative for edema, palpitations. 22:05 Respiratory: Negative for wheezing. 22:05 Abdomen/GI: Positive for abdominal pain, nausea, Negative for diarrhea, constipation, active vomiting. 22:05 : Negative for urinary symptoms, vaginal bleeding. 22:05 Neuro: Positive for dizziness, Negative for altered mental status, headache, loss of consciousness, syncope, weakness. 22:05 All other systems are negative. Exam: 22:10 Constitutional: The patient appears in no acute distress, alert, awake, cp non-diaphoretic, non-toxic, well developed, well nourished, uncomfortable. 22:10 Head/Face: Normocephalic, atraumatic. cp 22:10 Eyes: Periorbital structures: appear normal, Pupils: equal, round, and reactive to light and accomodation, Extraocular movements: intact throughout, Conjunctiva: normal, no exudate, no injection, Sclera: no appreciated abnormality, Lids and lashes: appear normal, bilaterally. 22:10 ENT: External ear(s): are unremarkable, Nose: is normal, Mouth: Lips: moist, Oral mucosa: pink and intact, moist, Posterior pharynx: Airway: no evidence of obstruction, patent. 22:10 Neck: ROM/movement: is normal, is supple, without pain, no range of motions limitations. 22:10 Chest/axilla: Inspection: normal, Palpation: is normal, no crepitus, no tenderness. 22:10 Cardiovascular: Rate: bradycardic, Rhythm: regular, Heart sounds: murmur, not appreciated, Edema: is not appreciated, JVD: is not appreciated. 22:10 Respiratory: the patient does not display signs of respiratory distress, Respirations: labored breathing, is not present, intercostal retractions, are absent, shallow respirations, that is mild, Breath sounds: are clear throughout, no decreased breath sounds, no stridor, no wheezing. 22:10 Abdomen/GI: Inspection: bruising, mild noted at incision sites, distension, is not seen, Bowel sounds: active, all quadrants, Palpation: soft, in all quadrants, moderate abdominal tenderness, in all quadrants, rebound tenderness, is not appreciated, voluntary guarding, is elicited in all quadrants, involuntary guarding, is not appreciated. 22:10 Back: CVA tenderness, is absent. 22:10 Skin: cellulitis, is not appreciated, no rash present. 22:10 Neuro: Orientation: to person, place \T\ time. Mentation: is normal, Cerebellar function: is grossly normal, Motor: moves all fours, strength is normal, Sensation: is normal. Vital Signs: 22:06 BP 132 / 74; Pulse 55; Resp 18; Pulse Ox 98% ; ea MDM: 21:53 Patient medically screened. cp 22:00 Differential diagnosis: abnormal EKG, acute myocardial infarction, acute pericarditis, cp cholecystitis, Cholelithiasis costochondritis, pancreatitis, pericarditis, pleurisy, pneumonia, pneumothorax, pulmonary embolus, stable angina, unstable angina, bowel obstruction. 23:25 Data reviewed: vital signs, nurses notes, lab test result(s), radiologic studies, plain cp films. 02/03 00:20 ED course: VSS. Patient of sound mind and judgement refusing CT chest and abdomen due cp to concern that injecting contrast too fast to r/o pulmonary embolism. Patient requesting to leave department. 00:20 Test interpretation: by ED physician or midlevel provider: chest xray negative for cp infiltrates. Refusal of service: The patient/guardian displays adequate decision making capability and despite a detailed discussion of alternatives, benefits, risks, and consequences refuses: CT Scan. 02/02 21:53 Order name: Basic Metabolic Panel cp 02/02 21:53 Order name: CBC with Diff cp 02/02 21:53 Order name: LFT's cp 02/02 21:53 Order name: Magnesium cp 02/02 21:53 Order name: NT PRO-BNP; Complete Time: 23:24 cp 02/02 23:24 Interpretation: Normal except: NT PRO-BNP 134. cp 02/02 21:53 Order name: PT-INR; Complete Time: 23:24 cp 02/02 21:53 Order name: Troponin (emerg Dept Use Only); Complete Time: 23:24 cp 02/02 21:53 Order name: XRAY Chest (1 view) cp 02/02 21:53 Order name: Lipase; Complete Time: 23:24 cp 02/02 21:53 Order name: Basic Metabolic Panel; Complete Time: 23:24 EDMS 02/02 21:53 Order name: CBC with Automated Diff; Complete Time: 23:24 EDMS 02/02 23:25 Interpretation: Normal except: RBC 3.85; HGB 11.5; HCT 33.9. cp 02/02 21:53 Order name: Liver (Hepatic) Function; Complete Time: 23:24 EDMS 02/02 21:53 Order name: Magnesium; Complete Time: 23:24 EDMS 02/02 21:53 Order name: EKG; Complete Time: 21:53 cp 02/02 21:53 Order name: Cardiac monitoring cp 02/02 21:53 Order name: EKG - Nurse/Tech cp 02/02 21:53 Order name: IV Saline Lock; Complete Time: 22:04 cp 02/02 21:53 Order name: Labs collected and sent; Complete Time: 22:58 cp 02/02 21:53 Order name: O2 Per Protocol; Complete Time: 22:05 cp 02/02 21:53 Order name: O2 Sat Monitoring; Complete Time: 22:05 cp Administered Medications: No medications were administered Disposition: 05:51 Co-signature as Attending Physician, Greg Hall MD. [email or web address] Disposition: 02/03/21 00:22 Patient has left against medical advice. - Patients states they are going to Home. - Condition is Stable. Signatures: Dispatcher [employer] [facility] Warren Pablo PA PA cp Antunez, Elena, RN RN ea Holmes, Maurice, MD MD [email or web address] Corrections: (The following items were deleted from the chart) 00:17 02/02 23:26 Chest Abdomen Pelvis W Con+CT.RAD.BRZ ordered. [facility] EDMA 02/03 14:15 02/02 23:25 Test interpretation: by ED physician or midlevel provider: chest xray cp negative for infiltrates, cp 02/03 14:15 02/02 23:25 Refusal of service: The patient/guardian displays adequate decision making cp capability and despite a detailed discussion of alternatives, benefits, risks, and consequences refuses: CT Scan, cp 02/03 14:15 02/02 23:25 ED course: VSS. Patient of sound mind and judgement refusing CT chest and cp abdomen due to concern that injecting contrast too fast to r/o pulmonary embolism. Patient requesting to leave department. cp
[2021-02-03 00:39] VITALS: BP 132/74; O2SAT 98
--- NOTE | 2021-02-03 09:34 | RAD REPORT ---
EXAM DESCRIPTION: RAD - Chest Single View - 02/02/2021 10:09 pm CLINICAL HISTORY: CHEST PAIN Chest pain. COMPARISON: Chest Single View dated 08/29/2016; Chest Pa And Lat (2 Views) dated 07/22/2016; CHEST SI NGLE VIEW dated 07/19/2015 FINDINGS: Portable technique limits examination quality. Mild interstitial pulmonary opacities are present suspicious for interstitial edema or bronchitis. Th e heart is normal in size. No displaced fractures.
== END 2021-02-03 00:22 | disposition left against medical advice (07) ==
LOC: ER 21:47
DX: R07.9 Chest pain, unspecified (principal); Z53.20 Procedure and treatment not carried out because of patient's decision for unspecified reasons
CPT/HCPCS: 85025; 80048; 36415; 83735; 85610; 80076; 84484; 83690; 83880; 71045; 99284; J7030

== ENCOUNTER → 2021-07-11 | Emergency (ER) | payer OTHER ==
[~2021-07-11] MED LIST: NA CHLORIDE 0.9% 1,000 ML ONE; POTASSIUM CL SA 10 MEQ TAB PO ONE
[2021-07-11 20:25] LABS: Absolute Lymphocytes (CBC) 2.5 K/uL (0.7-4.9); Basophils % 0.8 % (0-1.3); Hematocrit 37.5 % (36.0-45.0); Lymphocytes % 33.2 % (15.3-44.8); MPV 9.5 fL (7.6-11.3); RBC Red Blood Cell Count 4.22 M/uL (3.86-4.86)
[2021-07-11 20:27] LABS: Protime INR 1.08
[2021-07-11 20:42] LABS: ALT/SGPT 22 U/L (12-78); AST/SGOT 14 U/L (15-37); Albumin 3.7 g/dL (3.4-5.0); Alkaline Phosphatase 55 U/L (45-117); BUN Blood Urea Nitrogen 15 mg/dL (7-18); Bicarbonate 25 mmol/L (21-32); Bilirubin Direct 0.2 mg/dL (0-0.2); Bilirubin Total 0.9 mg/dL (0.2-1.0); Glucose Level 94 mg/dL (74-106); Magnesium 2.4 mg/dL (1.8-2.4); NT PRO-BNP 26 pg/mL (<125); Potassium 3.3 mmol/L (3.5-5.1); Protein, Total 7.3 g/dL (6.4-8.2); Sodium Level 140 mmol/L (136-145); Troponin (Emerg Dept Use Only) < 0.02 ng/mL (0.0-0.045)
--- NOTE | 2021-07-11 20:49 | RAD REPORT ---
EXAM DESCRIPTION: RAD - Chest Single View - 07/11/2021 8:41 pm CLINICAL HISTORY: CHEST PAIN Chest pain. COMPARISON: Chest Single View dated 02/02/2021; Chest Single View dated 08/29/2016; Chest Pa And Lat (2 Views) dated 07/22/2016; CHEST SINGLE VIEW dated 07/19/2015 FINDINGS: Portable technique limits examination quality. The lungs are grossly clear. The heart is normal in size. No displaced fractures. IMPRESSION: No acute intrathoracic process suspected.
--- NOTE | 2021-07-11 23:51 | ER ---
Nurse's Notes [facility] Name: Vickie Davila Age: 46 yrs Sex: Female : 1975 Arrival Date: 07/11/2021 Time: 19:37 Bed 28 Private MD: Diagnosis: Chest pain, unspecified Presentation: 07/11 19:37 Chief complaint: Patient states: Pt denies SOB, Abd pain, dizziness and nausea. Pt wg states she was at rest and this gradually came on throughout the day. Pt denies cardiac history and take no meds other than vitamins. EMS states: EMS states pt coming from home with med-sternal non-radiating chest pain 07/08. States they gave 324mg ASA and 1 NTG and pt's pain improved however pt got a severe headache. BG was 109mg/DL in the field, 20g IV NS established. Coronavirus screen: Vaccine status: Patient reports being unvaccinated. Client denies travel out of the [place] in the last 14 days. At this time, the client does not indicate any symptoms associated with coronavirus-19. Ebola Screen: Patient negative for fever greater than or equal to 101.5 degrees Fahrenheit, and additional compatible Ebola Virus Disease symptoms Patient denies exposure to infectious person. Patient denies travel to an Ebola-affected area in the 21 days before illness onset. No symptoms or risks identified at this time. Initial Sepsis Screen: Does the patient meet any 2 criteria? No. Patient's initial sepsis screen is negative. Does the patient have a suspected source of infection? No. Patient's initial sepsis screen is negative. Risk Assessment: Do you want to hurt yourself or someone else? Patient reports no desire to harm self or others. Onset of symptoms was July 11, 2021 at 10:00. Care prior to arrival: Medication(s) given: ASA, 325 mg, Nitroglycerin, x 1. 19:37 Method Of Arrival: EMS: [facility] wg 19:37 Acuity: CRISTAL 3 wg Triage Assessment: 19:42 General: Appears uncomfortable, well groomed, well developed, Behavior is calm, wg cooperative, appropriate for age. Pain: Complains of pain in chest and generalized headache Pain currently is 5 out of 10 on a pain scale. Quality of pain is described as aching. 19:42 Cardiovascular: No deficits noted. Denies diaphoresis, lightheadedness, nausea, wg palpitations, shortness of breath, syncope, vomiting, Rhythm is sinus rhythm. 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 - Social history:: Smoking status: Patient denies any tobacco usage or history of. - Family history:: not pertinent. - Hospitalizations: : No recent hospitalization is reported. Screenin:31 Abuse screen: Denies threats or abuse. Denies injuries from another. Nutritional bc5 screening: No deficits noted. Tuberculosis screening: No symptoms or risk factors identified. Fall Risk None identified. Assessment: 20:30 Reassessment: Pt refusing covid swab. Dr. Zhu made aware. 20:31 Pain: Complains of pain in chest Pain radiates to left arm and left leg Pain began bc5 suddenly. Neuro: No deficits noted. Cardiovascular: No deficits noted. Respiratory: No deficits noted. 21:56 Reassessment: , Lan [phone]. bc5 23:48 Reassessment: Pt refused IV contrast, reports having has "bad experience in past ....I bc5 broke out in a rash, I vomited, I had diarrhea" when informed she can be pre medicated, pt continued to refuse. 07/12 01:41 Reassessment: Pt requesting to leave "I am cold, the doctor isn't even and doctor, I bc5 don't know why they didn't send batch weigher, I don't know why I am just waiting here and nothing is being done" NETWORK ARCHITECT MANAGER Rahul aware and states "we will just discharge her then". IV pulled per Pt request. 01:46 Reassessment: Pt left without paper work and states "I'm just gana go to [place], they bc5 know me well there". Pt refused to wait for paperwork "My son is here I'm not going to wait". Vital Signs: 07/11 19:37 BP 109 / 54; Pulse 70; Resp 18; Temp 97.8; Pulse Ox 99% on R/A; Weight 72.57 kg; Height wg 5 ft. 9 in. (175.26 cm); Pain 5/10; 23:53 BP 109 / 84; Pulse 45; Resp 15; Temp 98.3(O); Pulse Ox 99% on R/A; Pain 0/10; bc5 07/12 01:00 BP 105 / 80; Pulse 80; Resp 16; Pulse Ox 100% on R/A; Pain 0/10; bc5 07/11 19:37 Body Mass Index 23.63 (72.57 kg, 175.26 cm) wg ED Course: 07/11 19:37 Patient arrived in ED. wg 19:42 Triage completed. wg 19:42 Arm band placed on. wg 19:43 Patient has correct armband on for positive identification. Placed in gown. Bed in low wg position. Call light in reach. Side rails up X2. Adult w/ patient. utility mechanic on. Pulse ox on. NIBP on. 19:43 Maintain EMS IV. Dressing intact. Good blood return noted. Site clean \\T\\ dry. Gauge \\T\\ wg site: 20 Left AC. Patient maintains SpO2 saturation greater than 95% on room air. 20:00 Rashmi Charlton, JHOAN is Primary Nurse. bc5 20:06 Steve Zhu MD is Attending Physician. rn 20:31 No provider procedures requiring assistance completed. Inserted saline lock: 20 gauge bc5 in left antecubital area, using aseptic technique. 20:41 XRAY Chest (1 view) In Process Unspecified. EDMS 22:32 CT Head Brain wo Cont In Process Unspecified. EDMS 22:32 Chest Abd Pelvis Wo Con In Process Unspecified. EDMS 23:50 Carlos Soriano DO is Hospitalizing Provider. rn Administered Medications: 20:12 Drug: NS 0.9% 500 ml Route: IV; Rate: bolus; Infused Over: 15 mins; Site: left wg antecubital; 22:02 Follow up: IV Status: Completed infusion; IV Intake: 500ml bc5 22:02 Not Given (Physician Discretion): Potassium Chloride 10 mEq IV at calculated rate once; bc5 administer over 1-2 hours 23:33 Drug: Potassium Chloride 40 mEq Route: PO; bc5 Intake: 22:02 IV: 500ml; Total: 500ml. bc5 Outcome: 23:50 Decision to Hospitalize by Provider. rn 07/12 01:49 AMA Left before signing form. em Condition: stable 01:49 Patient left the ED. em Signatures: Dispatcher [employer] Yeison Osorio, RN Steve Dawson MD MD rn Gamba, Liam, RN wg Corado, Bella, RN RN bc5 Corrections: (The following items were deleted from the chart) 01:45 07/11 20:31 Pain: Complains of pain in chest Pain does not radiate. Pain began bc5 suddenly, bc5
--- NOTE | 2021-07-11 23:51 | EDPHYS ---
Physician Documentation [facility] Name: Vickie Davila Age: 46 yrs Sex: Female : 1975 Arrival Date: 07/11/2021 Time: 19:37 Bed 28 Private MD: ED Physician Steve Zhu HPI: 07/11 22:46 This 46 yrs old Female presents to ER via EMS with complaints of Chest Pain > rn 28 y/o. 22:46 The patient or guardian reports chest pain that is located primarily in the substernal rn area. Onset: this morning. The pain radiates to the left arm. Associated signs and symptoms: Pertinent positives: dizziness, lightheadedness, Pertinent negatives: abdominal pain, headache, shortness of breath, syncope, vomiting. The chest pain is described as a pressure, sharp. Duration: The patient or guardian reports multiple episodes, that are intermittent, the episodes last approximately 20 minute(s). Modifying factors: The symptoms are alleviated by nothing. the symptoms are aggravated by nothing. Severity of pain: At its worst the pain was moderate in the emergency department the pain has improved. The patient has not experienced similar symptoms in the past. The patient has not recently seen a physician. Patient reports noticed a little bit of chest pain while at the gym this morning. Since then has been having intermittent episodes, left-sided, sharp and pressure, radiates to left arm and left leg with pain and left arm and left leg. Has happened 3 times today now is intermittent and each episode lasts about 20 minutes. Denies any trauma. No known cardiac problems. Denies recent illness or cough. Denies shortness of breath. Denies any weakness. Does report that left leg feels tingling but is also intermittent.. 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 - Social history:: Smoking status: Patient denies any tobacco usage or history of. - Family history:: not pertinent. - Hospitalizations: : No recent hospitalization is reported. ROS: 22:46 Constitutional: Negative for fever, chills, and weight loss, Eyes: Negative for injury, rn pain, redness, and discharge, ENT: Negative for injury, pain, and discharge, Neck: Negative for injury, pain, and swelling, Cardiovascular: Positive for chest pain Respiratory: Negative for shortness of breath, cough, wheezing, and pleuritic chest pain, Abdomen/GI: Negative for abdominal pain, nausea, vomiting, diarrhea, and constipation, Back: Negative for injury and pain, MS/Extremity: Negative for injury and deformity, Skin: Negative for injury, rash, and discoloration, Neuro: Negative for headache, weakness, numbness, and seizure. Exam: 22:46 Constitutional: This is a well developed, well nourished patient who is awake, alert, rn appears anxious and hyperventilating. Head/Face: Normocephalic, atraumatic. Eyes: Pupils equal round and reactive to light, extra-ocular motions intact. Lids and lashes normal. Conjunctiva and sclera are non-icteric and not injected. Cornea within normal limits. Periorbital areas with no swelling, redness, or edema. ENT: No stridor Cardiovascular: Regular rate and rhythm. No pulse deficits. Respiratory: Mild hyperventilation, when coached can slow breathing down. No retractions. Speaking full sentences. Abdomen/GI: Soft, non-tender Skin: Warm, dry MS/ Extremity: Pulses equal, no cyanosis. Neurovascular intact. Full, normal range of motion. Equal circumference. Neuro: Awake and alert, GCS 15, oriented to person, place, time, and situation. Cranial nerves II-XII grossly intact. Motor strength 5/5 in all extremities. Sensory grossly intact. Cerebellar exam normal. Vital Signs: 19:37 BP 109 / 54; Pulse 70; Resp 18; Temp 97.8; Pulse Ox 99% on R/A; Weight 72.57 kg; Height wg 5 ft. 9 in. (175.26 cm); Pain 5/10; 23:53 BP 109 / 84; Pulse 45; Resp 15; Temp 98.3(O); Pulse Ox 99% on R/A; Pain 0/10; bc5 07/12 01:00 BP 105 / 80; Pulse 80; Resp 16; Pulse Ox 100% on R/A; Pain 0/10; bc5 07/11 19:37 Body Mass Index 23.63 (72.57 kg, 175.26 cm) wg MDM: 07/11 20:06 Patient medically screened. rn 22:23 ED course: Pt in CT, refusing contrast. Does not have allergy, but states doesn't like rn it. Also refuses COVID testing.. 23:49 Differential diagnosis: acute myocardial infarction, acute pericarditis, anxiety, rn coronary artery disease chest wall pain, costochondritis, esophagitis, gastritis, pleurisy, pneumonia, pneumothorax, pulmonary embolus, stable angina, thoracic aortic disection, unstable angina. The patient was not given aspirin in the Emergency Department. Administered by EMS. Data reviewed: vital signs, nurses notes. 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 Interpretation: normal. Test interpretation: by ED physician or midlevel provider: ECG, plain radiologic studies, X-ray chest no acute pneumonia or pneumothorax. Counseling: I had a detailed discussion with the patient and/or guardian regarding: the historical points, exam findings, and any diagnostic results supporting the discharge/admit diagnosis, lab results, radiology results, the need for further work-up and treatment in the hospital. Response to treatment: the patient's symptoms have mildly improved after treatment, and as a result, I will admit patient. Admission orders: after a detailed discussion of the patient's condition and case, the admit orders are written by me. ED course: No acute findings on CT chest abdomen pelvis. Will admit to hospitalist service for cardiac work-up.. 07/11 19:51 Order name: Basic Metabolic Panel; Complete Time: 20:53 em 07/11 19:51 Order name: CBC with Diff; Complete Time: 20:53 em 07/11 19:51 Order name: LFT's; Complete Time: 20:53 em 07/11 19:51 Order name: Magnesium; Complete Time: 20:53 em 07/11 19:51 Order name: NT PRO-BNP; Complete Time: 20:53 em 07/11 19:51 Order name: PT-INR; Complete Time: 20:53 07/11 19:51 Order name: Troponin (emerg Dept Use Only); Complete Time: 20:53 07/11 19:51 Order name: XRAY Chest (1 view); Complete Time: 20:53 em 07/11 20:12 Order name: COVID-19 (Coronavirus) Document "Date of Onset" if Symptomatic rn 07/11 20:20 Order name: D-Dimer; Complete Time: 20:53 EDMS 07/11 21:54 Order name: CT Head Brain wo Cont rn 07/11 22:24 Order name: Chest Abd Pelvis Wo Con EDMS 07/11 19:51 Order name: EKG; Complete Time: 19:54 em 07/11 19:51 Order name: Cardiac monitoring; Complete Time: 20:02 em 07/11 19:51 Order name: EKG - Nurse/Tech; Complete Time: 20:02 em 07/11 19:51 Order name: IV Saline Lock; Complete Time: 20:02 em 07/11 19:51 Order name: Labs collected and sent; Complete Time: 20:02 em 07/11 19:51 Order name: O2 Per Protocol; Complete Time: 20:02 em 07/11 19:51 Order name: O2 Sat Monitoring; Complete Time: 20:02 em Administered Medications: 20:12 Drug: NS 0.9% 500 ml Route: IV; Rate: bolus; Infused Over: 15 mins; Site: left antecubital; 22:02 Follow up: IV Status: Completed infusion; IV Intake: 500ml bc5 22:02 Not Given (Physician Discretion): Potassium Chloride 10 mEq IV at calculated rate once; bc5 administer over 1-2 hours 23:33 Drug: Potassium Chloride 40 mEq Route: PO; bc5 Disposition Summary: 07/11/21 23:50 Hospitalization Ordered Hospitalization Status: Observation rn Provider: Carlos Soriano rn [facility] rn Condition: Stable rn Problem: new rn Symptoms: have improved rn Bed/Room Type: Standard rn Room Assignment: rn Diagnosis - Chest pain, unspecified rn Forms: - Medication Reconciliation Form rn - SBAR form rn Signatures: Dispatcher [employer] EDYeison Hein, RN RN Steve Briceño MD MD rn Gamba, Liam, RN wg Corado, Bella, RN RN bc5 Corrections: (The following items were deleted from the chart) 20:19 20:13 D-DIMER+COAG.LAB.BRZ ordered. [facility] EDMS 22:24 21:55 Angio Aorta For Dissection+CT.RAD.BRZ ordered. EDMS EDMS
--- NOTE | 2021-07-12 01:08 | P.HP ---
Certification for Inpatient Patient admitted to: Observation With expected LOS: <2 Midnights Patient will require the following post-hospital care: None Practitioner: I am a practitioner with admitting privileges, knowledge of patient current condition, hospital course, and medical plan of care. Services: Services provided to patient in accordance with Admission requirements found in Title 42 Section 412.3 of the Code of Federal Regulations Patient History Date of Service: 07/12/21 Primary Care Provider: Dr. Reddy Reason for admission: Chest pain, bradycardia History of Present Illness: Otherwise healthy 46-year-old female presented to the emergency department for left-sided chest pain. Patient reports pain began today while she was resting pain is described as sharp radiating to left arm and left leg. Patient without any former cardiac work-up patient was evaluated with CT scan of the head, CT chest abdomen pelvis without contrast, chest x-ray and labs which were all unremarkable aside from potassium of 3.3. Patient very anxious about her health, noted to be mildly bradycardic with heart rate between 45 and 50, ED provider wishes to admit under observation for chest pain. Allergies No Known Allergies Allergy (Verified 09/14/20 15:21) Home Medications: Advocare 1 tab PO DAILY 09/14/20 Ascorbic Acid [Vitamin C] 500 mg PO DAILY 09/14/20 Cholecalciferol (Vitamin D3) [Vitamin D3] 1,000 unit PO DAILY 09/14/20 Folic Acid 1 mg PO DAILY 09/14/20 Gabapentin [Neurontin] 100 mg PO BEDTIME 09/14/20 Multivitamin [Multiple Vitamins] 1 each PO DAILY 09/14/20 Zinc 50 mg PO DAILY 09/14/20 - Past Medical/Surgical History -: None -: Hysterectomy -: Appendectomy Psychosocial/ Personal History: Unemployed, lives at home with family - Family History Family History: Reviewed- Non-Contributory - Social History Smoking Status: Never smoker Alcohol use: No CD- Drugs: No Caffeine use: No Place of Residence: Home Review of Systems 10-point ROS is otherwise unremarkable Cardiovascular: Chest Pain Physical Examination - Physical Exam General: Alert, In no apparent distress, Oriented x3 HEENT: Atraumatic, PERRLA, Mucous membr. moist/pink, EOMI, Sclerae nonicteric Neck: Supple, 2+ carotid pulse no bruit, No LAD, Without JVD or thyroid abnormality Respiratory: Clear to auscultation bilaterally, Normal air movement Cardiovascular: Regular rate/rhythm, Normal S1 S2 Gastrointestinal: Normal bowel sounds, No tenderness Musculoskeletal: No tenderness Integumentary: No rashes Neurological: Normal gait, Normal speech, Normal strength at 5/5 x4 extr, Normal tone, Normal affect Lymphatics: No axilla or inguinal lymphadenopathy - Studies Laboratory Data (last 24 hrs) 07/11/21 20:00: PT 12.4, INR 1.08 07/11/21 20:00: WBC 7.40, Hgb 12.6, Hct 37.5, Plt Count 260 07/11/21 20:00: Sodium 140, Potassium 3.3 L, BUN 15, Creatinine 0.84, Glucose 94, Magnesium 2.4, Total Bilirubin 0.9, AST 14 L, ALT 22, Alkaline Phosphatase 55 Assessment and Plan - Plan Assessment: Chest pain, bradycardia rule out ACS Hypokalemia Plan: Chest pain, bradycardia rule out ACS: Initial troponin negative, EKG unremarkable. Trend troponins, monitor on telemetry, cardiology consulted continue daily aspirin. Will hold beta-anthony given bradycardia. Appreciate further input from cardiology. Anticipate outpatient work-up will be appropriate. Hypokalemia: Protocol in place. Monitor on telemetry. DVT PPX: Lovenox Code status: Full code Discharge Plan: Home Plan to discharge in: 24 Hours - Advance Directives Does patient have a Living Will: No Does patient have a Durable POA for Healthcare: No - Code Status/Comfort Care Code Status Assessed: Yes (Full code) Critical Care: No Time Spent Managing Pts Care (In Minutes): 55
[2021-07-12 02:26] VITALS: TEMP 98.3
[2021-07-12 02:27] VITALS: BP 105/80; O2SAT 100
--- NOTE | 2021-07-12 11:24 | RAD REPORT ---
EXAM DESCRIPTION: CT - Head Brain Wo Cont - 07/12/2021 6:42 am COMPARISON: None. CLINICAL HISTORY: DIZZINESS TECHNIQUE: Axial images were obtained from skull base to vertex without intravenous contrast. Imag es viewed on bone and brain windows. Multiplanar reformats were performed. Automated exposure contr ol was utilized on this examination as a dose lowering technique. FINDINGS: Brain parenchyma, ventricles, dura, meninges, and extra-axial spaces: Ventricles and sulci are normal. No abnormal attenuation of brain parenchyma is present. No acute intracranial hemor rhage or abnormal extra-axial fluid collections are present. Vascular structures: No hyperdense arteries or veins. Calvarium, mastoid air cells, paranasal sinuses and orbits: The calvarium is normal. The mastoid air cells are clear. Visualized paranasal sinuses are unremarkable. Orbital structures are unremarkable. IMPRESSION: No acute intracranial abnormality. Electronically signed by: Nirmal Reyes MD 07/11/2021 11:42 PM CDT Due to temporary technical issues with the PACS/Fluency reporting system, reports are being signed by the in house radiologists without review as a courtesy to insure prompt reporting. The interpreting radiologist is fully responsible for the content of the report.
--- NOTE | 2021-07-12 11:29 | RAD REPORT ---
EXAM DESCRIPTION: CT - Chest Abd Pelvis Wo Con - 07/12/2021 6:42 am COMPARISON: None. CLINICAL HISTORY: [facility] MAIN pain in left arm and leg;Chest pain TECHNIQUE: CT images through the chest, abdomen, and pelvis without IV contrast. Multiplanar reforma ts. Automated exposure control was utilized on this examination as a dose lowering technique. FINDINGS: CT CHEST FINDINGS: Heart and mediastinum: Heart size is normal. No lymphadenopathy. Vascular: Unremarkable. Thyroid gland: Visualized portions are normal. Lungs: Clear. Airways: No filling defects. No bronchiectasis. Pleura: No pneumothorax. No significant pleural effusion. Musculoskeletal and soft tissues: Within normal limits for age. CT ABDOMEN & PELVIS FINDINGS: *Evaluation of solid organs is limited due to lack of IV contrast. Liver: Normal. Gallbladder and biliary: Normal gallbladder. Unremarkable biliary tree. Pancreas: Normal. Spleen: Normal. Kidneys and adrenal glands: Normal adrenal glands. Bilateral nonobstructing renal calculi measure up to 3 mm. Stomach and Small Bowel: The stomach and small bowel are normal. Urinary bladder: Normal. Uterus and Adnexa: Atrophic or absent. Colon and Appendix: The colon is unremarkable. No evidence of appendicitis. Peritoneal cavity: No ascites or free air. Retroperitoneum and lymph nodes: Normal. Vascular: Unremarkable. Musculoskeletal and soft tissues: Soft tissues are unremarkable. No aggressive bone lesions. No c ompression fracture. IMPRESSION: CHEST IMPRESSION: No acute chest findings. ABDOMEN AND PELVIS IMPRESSION: 1. No acute intra-abdominal abnormality. 2. Nonobstructing bilateral renal calculi. Electronically signed by: Nirmal Reyes MD 07/11/2021 11:19 PM CDT Due to temporary technical issues with the PACS/Fluency reporting system, reports are being signed by the in house radiologists without review as a courtesy to insure prompt reporting. The interpreting radiologist is fully responsible for the content of the report.
== END ==
LOC: ER 19:50
DX: R07.9 Chest pain, unspecified (principal); R00.1 Bradycardia, unspecified; E87.6 Hypokalemia; Z53.29 Procedure and treatment not carried out because of patient's decision for other reasons
CPT/HCPCS: 85025; 80048; 36415; 83735; 85610; 85379; 80076; 84484; 83880; 70450; 71250; 74176; 71045; J7030; 93005

== ENCOUNTER 2021-09-14 08:27 | Day surgery (SDC) | payer OTHER ==
[2021-09-10 09:13] LABS: Absolute Lymphocytes (CBC) 1.9 K/uL (0.7-4.9); Basophils % 0.7 % (0-1.3); Hematocrit 38.9 % (36.0-45.0); Lymphocytes % 31.3 % (15.3-44.8); MPV 8.9 fL (7.6-11.3); RBC Red Blood Cell Count 4.32 M/uL (3.86-4.86)
[2021-09-10 09:17] LABS: Protime INR 0.99
--- NOTE | 2021-09-10 09:39 | RAD REPORT ---
EXAM DESCRIPTION: Alyssa Malloy (2 Views)09/10/2021 9:10 am CLINICAL HISTORY: Preop for knee surgery COMPARISON: June 2002 FINDINGS: The lungs appear clear of acute infiltrate. The heart is normal size IMPRESSION: No acute abnormalities displayed
[2021-09-10 10:59] LABS: Potassium 4.4 mmol/L (3.5-5.1)
[2021-09-14] MEDS ORDERED: Ringers Lactate 1,000 ML IV ONE (08:50)
[2021-09-14] MEDS ORDERED: CEFAZOLIN/NS 1gm 1 GM/50 ML BAG ONE (08:51)
[2021-09-14] MEDS ORDERED: FENTANYL CITR 100 MCG/2 ML ONE (10:25)
[2021-09-14] MEDS ORDERED: MIDAZOLAM HCL 2 MG/2 ML INJ ONE (10:25)
[2021-09-14] MEDS ORDERED: propofoL 200 MG/20 ML VIAL IV ONE (10:25)
[2021-09-14] MEDS ORDERED: KETOROLAC 30 MG/ML INJ ONE (10:26)
[2021-09-14] MEDS ORDERED: ONDANSETRON 4 MG/2 ML VIAL ONE ×2 (10:26→13:06)
[2021-09-14] MEDS ORDERED: dexAMETHasone 10 MG/ML VIAL ONE (10:26)
[2021-09-14] MEDS ORDERED: LIDOCAINE 2% MPF 5 ML VIAL ONE (10:26)
[2021-09-14] MEDS ORDERED: CELECOXIB 100 MG CAPSULE ONE (10:44)
[2021-09-14] MEDS ORDERED: ACETAMINOPHEN 500 MG TAB ONE (10:45)
[2021-09-14] MEDS ORDERED: BUPIVACAINE 0.25% PF 10 ML VIAL ONE (10:49)
[2021-09-14] MEDS ORDERED: ACETAMINOPHEN 500 MG TAB PO ONE (10:50)
[2021-09-14] MEDS ORDERED: CELECOXIB 100 MG CAPSULE PO ONE (10:50)
[2021-09-14] MEDS ORDERED: Mastisol Adhesive Liq ONE (12:22)
--- NOTE | 2021-09-14 12:36 | P.BOP ---
Preoperative diagnosis: left knee lateral meniscus tear Postoperative diagnosis: same, left knee medial plica Primary procedure: left knee arthroscopic partial lateral meniscectomy w/ cyst decompression Secondary procedure: left knee arthroscopic medial plica excision Jigmaker: NONE,NONE Estimated blood loss: 5 cc Specimen: none Findings: see dictation Anesthesia: General Complications: None Implants: none Fluids & blood products: per anesthesia record; TT: 39 mins @ 250 mmHg Transferred to: Recovery Room Condition: Good
[2021-09-14] MEDS: HYDROMORPHONE HCL 2 MG/ML inj ONE ×4 (12:42→13:08)
[2021-09-14] MEDS ORDERED: HYDROMORPHONE HCL 1 MG/ML INJ ONE (13:18)
[2021-09-14 13:55] VITALS: O2SAT 100
[2021-09-14] MEDS ORDERED: HYDROCODONE/APAP 5/325 MG TAB ONE ×2 (13:58→14:47)
[2021-09-14 14:52] VITALS: TEMP 97.2
[2021-09-14 15:40] VITALS: BP 106/56
--- NOTE | 2021-09-18 11:48 | OP ---
Date of Procedure: 09/15/2021 Surgeon: Pool Hernandez MD Preoperative Diagnosis: Left knee lateral meniscus tear. Postoperative Diagnoses: 1.Left knee lateral meniscus tear. 2.Left knee medial plica. Procedures Performed: 1.Left knee arthroscopic partial lateral meniscectomy. 2.Left knee arthroscopic plica excision. Anesthesia: General, LMA. Fluids: Per Anesthesia records. Estimated Blood Loss: 5 cc. Implants: None. Complications: None. Tourniquet Time: 39 minutes at 250 mmHg. Indication For Procedure: Vickie is a 46-year-old female, who presented to my clinic with signs, sym ptoms, and MRI findings consistent with a left knee lateral meniscus tear as well as a parameniscal c yst. I discussed with the patient at length risks and benefits associated with the operative and non operative treatment. She expressed understanding and elected to proceed with operative treatment. Description Of Procedure: After informed consent was obtained, the patient was identified in the pre operative holding area. The left lower extremity was marked. The patient was then brought back to [facility] operative room, transferred to the operative table in supine fashion, placed under general LMA ane sthesia. The left lower extremity was then prepped and draped in usual sterile fashion. A time-out was initiated. The correct patient and procedure were confirmed and identified. The patient did rec eive preoperative prophylactic antibiotics. The left lower extremity was then exsanguinated using an Esmarch and the tourniquet was inflated to 250 mmHg. Standard anteromedial and anterolateral portal s were created. The arthroscope was brought in via the anterolateral portal and diagnostic arthrosco py was performed. The patient was noted to have pristine cartilage of the undersurface of patella an d trochlear groove. There was noted to be a medial plica, which was rubbing on the medial femoral co ndyle. An arthroscopic shaver was then used to debride and excise the medial plica. Next, the arthr oscope was brought in the medial compartment. The patient was noted to have pristine cartilage of me dial femoral condyle and medial tibial plateau. There was no significant medial meniscus tear, which was stable to probe. The arthroscope was then brought in the intercondylar notch. The patient was noted to have an intact ACL and PCL, which were stable to probe. The arthroscope was then brought to the lateral compartment and the patient was noted to have a complex tear of the anterior horn of the lateral meniscus. There was a parameniscal cyst, which was excised and debrided using arthroscopic shaver. A partial lateral meniscectomy was performed using meniscal biters and arthroscopic shaver t o smooth meniscal borders. The arthroscopic instruments were then removed without complication. Wou nds were then irrigated thoroughly with normal saline. The portals were approximated using a 3-0 Mon ocryl. Sterile dressings were applied. Tourniquet was let down. The patient was awakened and trans ferred to PACU in stable condition. Postoperative Plan: The patient will be weightbearing as tolerated. She will follow up in 1 week fo r wound check. CV/MODL Voice ID: [id number] Report ID: [id number]
== END 2021-09-14 15:29 | disposition home or self-care (01) ==
LOC: OR 08:27
PROVIDERS: ATTEND Orthopaedic Surgery Sports Medicine
PROC: 0SBD4ZZ Excision of Left Knee Joint, Percutaneous Endoscopic Approach (ICD-10-PCS; principal; 2021-09-14 09:30)
DX: S83.272A Complex tear of lateral meniscus, current injury, left knee, initial encounter (principal); M67.52 Plica syndrome, left knee; M23.042 Cystic meniscus, anterior horn of lateral meniscus, left knee; Z90.710 Acquired absence of both cervix and uterus; Z20.822 Contact with and (suspected) exposure to COVID-19; Z80.9 Family history of malignant neoplasm, unspecified
CPT/HCPCS: 85025; 80048; 36415; 85610; 85730; 71046; 29881; U0002; J2704; J2250; J1170; J3010; J1100; J0690; J7120; J2405 ×2

== ENCOUNTER → 2021-10-20 | Emergency (ER) | payer OTHER ==
[~2021-10-20] MED LIST changes: +ACETAMINOPHEN 500 MG TAB ONE; -POTASSIUM CL SA 10 MEQ TAB PO ONE
--- OUTSIDE RECORDS SUMMARY | 2021-10-20 04:29 | XMS REPORT | Clinical Summary ---
:1975 Author Organization [facility] MD [facility] Address [address] [place] [address] Care Team Providers Name Role Phone Unavailable Primary Care Provider Unavailable Allergies Not on File Medications Not on file Active Problems Not on file Encounters Date Type Specialty Care Team Description 09/06/2021 Travel after 10/20/2020 Social History Tobacco Use Types Packs/Day Years Used Date Never Assessed Sex Assigned at Date Recorded Not on file Job Start Date Occupation Industry Not on file Not on file Not on file Last Filed Vital Signs Not on file Plan of Treatment Not on file Results Not on fileafter 10/20/2020 Insurance Payer Benefit Plan / Subscriber ID Effective Dates Phone Addre ss Type Group [employer] Effective for all [address] [place] [address]
--- OUTSIDE RECORDS SUMMARY | 2021-10-20 04:29 | XMS REPORT | Continuity of Care Document ---
:1975 Author Organization [facility] t Address [address] [place] [address] Care Team Providers Name Role Phone Tala Danielle Attending Clinician Unavailable MARILUZ CARIAS Attending Clinician Unavailable Edson Reddy Admitting Clinician Unavailable Payers Payer Name Policy Type Policy Number Effective Date Expiration Date S ource Problems This patient has no known problems. Allergies, Adverse Reactions, Alerts Allergy Allergy Status Severity Reaction(s) Onset Inactive Treating Comm ents Source Name Type Date Date Clinician No Known DA [facility] [place] No Known DA Active [facility]ie 01-[facility] [place] Penicill DA Active [facility] ins 01-29 [facility] [place] Penic[facility] DA Active [facility] [place] No Known DA Active [facility] Contrast - [facility] [place] No Known DA Active [facility] Food -14 [facility] [place] No Known DA Active [facility] Other -14 [facility] [place] PENICILL DA Active U [facility] 2007-0 [facility] IN 1-14 [facility] [place] penicill DA Active U 2005-0 [facility] in G 5-25 [facility] [place] Social History Social Habit Start Date Stop Date Quantity Comments Source Sex Assigned At [birth year] MD [place] 00:00:00 00:00:00 Medications This patient has no known medications. Procedures This patient has no known procedures. Encounters Start End Encounter Admission Attending Care Care Encounter Source Date/Time Date/Time Type Type Clinicians Facility Department ID 2021-01-30 Inpatient EL Lolis, [facility] DAYS [id number] [facility] 09:30:00 Tala [id number] [facility] 2021-01-29 2021-01-29 Outpatient Danielle, [facility] OUTD [id number] [facility] 09:30:00 09:30:00 Tala [id number] [facility] 2019-08-06 2019-08-06 Emergency E JV, [facility] [id number] [facility] 15:49:00 18:05:00 FARIDE[facility] Results Test Description Test Time Test Comments Results Result Comments Source UTERUS,OTHER THAN PROLAPSE/NERI 2021-01-31 16:14:00 Test Item Value Reference Range Interpretation Damon parker UTERUS,OTHER RUN DATE: THAN 01/31/21 [facility] PAGE 1 RUN TIME: 1701 PROLAPSE/NERI Specimen Inquiry RUN USER: INTERFACE (test code = UTERUSOTH) PATIENT: WHITLEY NEGRO LOC: [facility] U #: [id number] AGE/SX: 45/ F [facility] RE01/30/21REG DR: Tala Danielle MD : 71 BED: A DIS: 01/31/21 STATUS: DIS Dolores TLOC: SPEC #: [id number] RECD: 01/17-1050 STATUS: SOUT REQ #: [id number] CELY: 01/30/21- SUBM DR: Tala Danielle MD ENTERED: 01/30/21-1056 SP TYPE: UTERUSOTH OTHR DR: ORDERED: LEVEL V SURGICA/6 CODES: [id number] - UTERUS, NOS [id number] - PERITONEUM, NOS PROCEDURES: LEVEL V SURGICA [...] tube - benign paratubal cyst CPT : 27409 x5, 29116 CONTINUED ON NEXT PAGE RUN DATE: 01/31/21 [facility] PAGE 2 RUN TIME: 1702 Specimen Inquiry RUN USER: INTERFACE SPEC #: [id number] PATIENT: WHITLEY NEGRO #[id number] (Continued) FINAL DIAGNOSIS (Continued) ls/wpd GROSS DESCRIPTION ANATOMIC SOURCE OF TISSUE (per [...] with fimbriae. Sectioning reveals a pinpoint lumen. [employer] sections are submitted as follows: F1 - anterior cervix F2 - posterior cervix F3 - anterior endomyometrium, ful l-thickness CONTINUED ON NEXT PAGE RUN DATE: 01/31/21 [facility] PAGE 3 RUN TIME: 1702 Specimen Inquiry RUN USER: INTERFACE SPEC #: [id number] PATIENT: WHITLEY NEGRO #[id number] (Continued) GROSS DESCRIPTION (Continued) F4 - posterior endomyometrium, full-thickness F5 - right fallopian tube F6 - left fallopian tube ar/w 01/30/21 Signed Amber Jones MD 01/31/21 1614 END OF REPORT CBC W/AUTO [id number] 05:48:00 Test Item Value Reference Range Interpretation [...] code = PLTMR) COVID 19 Asymptomatic IH [id number] 15:45:00 Test Item Value Reference Range Interpretation [...] or approved; th e test hasbeen authori zed by FDA under an Emerge ncy Use Authorization(E UA) for use by danishato katarzyna certified under the CLIA thatmeet the re quirements to perform mode rate, high or waivedcomple xity tests. This sheila t is authorized for use at thePoint of Car e (POC), i.e., in patien t care settingsoperati ng under a CLIA Certificat e of Waiver, Certifi ismael ofCompliance, o r Certificate of Accreditation. This test is only authori zed for the duration of thedeclaration that circumstances e xist justifying theauthorizatio n of emergency use o f in vitro diagnostic test sfor detection and/o r diagnosis of CO VID-19 under Xibqjuu90 4(b)(1) of the Act, 21 U.S .C. 360bbb-3(b)(1), unless theauthorizatio n is terminated or r evoked sooner. AG HEPATITIS B [id number] 11:06:00 Test Item Value Reference Range Interpretation Comments AG HEPATITIS B SURFACE (test code NONREACTIVE NONREACTIVE = HBSAG) IS CONSENT FORM SIGNED FOR HIV TESTING? YAB HEPATITIS C [id number] 11:06:00 Test Item Value Reference Range Interpretation Comments AB HEPATITIS C (test code = NONREACTIVE NONREACTIVE HCVAB) SIGNAL TO CUTOFF (test code = <0.02 <0.80 N CUTOFF) IS CONSENT FORM SIGNED FOR HIV TESTING? YAB HIV 1 11:06:00 Test Item Value Reference Range Interpretation Comments AB HIV 1 2 (test NONREACTIVE NONREACTIVE Done by Devi Rodgers code = DKF81CD) 4th Gen HIV Ag/Ab Combo Screen IS CONSENT FORM SIGNED FOR HIV TESTING? YAG HEPATITIS B [id number] 10:37:00 Test Item Value Reference Range Interpretation Comments AG HEPATITIS B SURFACE (test code NONREACTIVE NONREACTIVE = HBSAG) IS CONSENT FORM SIGNED FOR HIV TESTING? YAB HEPATITIS C [id number] 10:37:00 Test Item Value Reference Range Interpretation Comments AB HEPATITIS C (test code = HCVAB) NONREACTIVE SIGNAL TO CUTOFF (test code = CUTOFF) <0.80 IS CONSENT FORM SIGNED FOR HIV TESTING? YAB HIV 1 10:37:00 Test Item Value Reference Range Interpretation Comments AB HIV 1 2 (test code = CLB53BR) NONREACTIVE IS CONSENT FORM SIGNED FOR HIV TESTING? YCBC W/AUTO [id number] 10:24:00 Test Item Value Reference Range Interpretation [...] (test NORMAL NORMAL code = PLTMR) URINALYSIS [id number] 10:17:00 Test Item Value Reference Range Interpretation [...] NONE SEEN URINE SAMPLE: CLEAN CATCHHCG SERUM [id number] 10:11:00 Test Item Value Reference Range Interpretation Comments HCG SERUM QUAL (test code = HCGQL) NEGATIVE
[2021-10-20 05:18] LABS: Absolute Lymphocytes (CBC) 0.4 K/uL (0.7-4.9); Hematocrit 37.9 % (36.0-45.0); Lymphocytes % 6.5 % (15.3-44.8); MPV 8.8 fL (7.6-11.3); RBC Red Blood Cell Count 4.22 M/uL (3.86-4.86)
[2021-10-20 05:21] LABS: Protime INR 1.08
[2021-10-20 05:25] LABS: SARS-COV-2 RT PCR POSITIVE (NEGATIVE)
[2021-10-20 05:39] LABS: Albumin 3.7 g/dL (3.4-5.0); Bilirubin Direct 0.2 mg/dL (0-0.2); Bilirubin Total 0.6 mg/dL (0.2-1.0); Magnesium 2.3 mg/dL (1.8-2.4); Potassium 3.8 mmol/L (3.5-5.1); Protein, Total 7.5 g/dL (6.4-8.2); Troponin High Sensitivity 5.5 pg/mL (<58.9)
--- NOTE | 2021-10-20 07:08 | RAD REPORT ---
EXAM DESCRIPTION: CT - Chest For Pe Angio - 10/20/2021 6:45 am CLINICAL HISTORY: Chest pain COMPARISON: June 2021 TECHNIQUE: Dynamically enhanced axial 3 mm thick images of the chest were obtained during administra tion of <100> mL Isovue 370 IV contrast. Coronal and oblique reconstruction images were generated and reviewed. Exam utilizes a protocol for optimal evaluation of pulmonary arterial tree. Maximum intensity projections 3D imaging was utilized All CT scans are performed using dose optimization technique as appropriate and may include automated exposure control or mA/KV adjustment according to patient size. FINDINGS: A pulmonary embolus is not seen. A thoracic aortic aneurysm is not noted. A pleural effusion is not seen. A pericardial effusion is not seen. A lung consolidation is not present. IMPRESSION: Negative for a pulmonary embolism.
--- NOTE | 2021-10-20 07:14 | ER ---
Nurse's Notes [facility] Name: Vickie Davila Age: 46 yrs Sex: Female : 1975 Arrival Date: 10/20/2021 Time: 04:28 Bed 6 Private MD: Diagnosis: Coronavirus infection, unspecified Presentation: 10/20 04:30 Chief complaint: EMS states: patient called out for a fever that has been present for 2 al4 days. EMS states that patient took an advil yesterday for her fever. today patient felt chest pain upon exertion, headache and general body aches. 04:30 Method Of Arrival: EMS: [facility] al4 04:32 Onset of symptoms was October 18, 2021. al4 04:35 Coronavirus screen: Vaccine status: Patient reports being unvaccinated. Ebola Screen: al4 No symptoms or risks identified at this time. Initial Sepsis Screen: Does the patient meet any 2 criteria? No. Patient's initial sepsis screen is negative. Does the patient have a suspected source of infection? No. Patient's initial sepsis screen is negative. Risk Assessment: Do you want to hurt yourself or someone else? Patient reports no desire to harm self or others. 04:35 Acuity: CRISTAL 3 al4 Triage Assessment: 04:43 General: Appears in no apparent distress. uncomfortable, Behavior is calm, cooperative, al4 appropriate for age, Reports feeling ill for 1-2 days. Pain: Complains of pain in head. Neuro: Level of Consciousness is awake, alert, obeys commands, Oriented to person, place, time, situation. Cardiovascular: Capillary refill is > 3 seconds Patient's skin is warm and dry. Respiratory: Airway is patent Respiratory effort is even, unlabored, Respiratory pattern is regular, symmetrical. 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 Flu vaccine is not up to date. - Social history:: Smoking status: Patient denies any tobacco usage or history of. Screenin:34 Abuse screen: Denies threats or abuse. Nutritional screening: No deficits noted. al4 Tuberculosis screening: No symptoms or risk factors identified. Fall Risk. Assessment: 05:09 General: Appears in no apparent distress. comfortable, Behavior is calm, cooperative, al4 appropriate for age, Reports headache, chest pain with exertion, and body aches. Pain: Complains of pain in head Pain currently is 8 out of 10 on a pain scale. Neuro: Level of Consciousness is awake, alert, obeys commands, Oriented to person, place, time, situation. Cardiovascular: Capillary refill < 3 seconds Patient's skin is warm and dry. Respiratory: Airway is patent Respiratory effort is even, unlabored, Respiratory pattern is regular, symmetrical. GI: No signs and/or symptoms were reported involving the gastrointestinal system. : No signs and/or symptoms were reported regarding the genitourinary system. EENT: No signs and/or symptoms were reported regarding the EENT system. Derm: No signs and/or symptoms reported regarding the dermatologic system. Musculoskeletal: Circulation, motion, and sensation intact. Range of motion: intact in all extremities, Reports body aches. 06:00 Reassessment: Patient is alert, oriented x 3, equal unlabored respirations, skin al4 warm/dry/pink. patient ambulated to restroom. Vital Signs: 04:35 BP 109 / 65; Pulse 97; Resp 18 S; Pulse Ox 96% on R/A; al4 04:39 Temp 100.3(O); al4 05:00 BP 104 / 83; Pulse 76; Resp 18; Pulse Ox 100% on R/A; al4 06:00 BP 103 / 76; Pulse 78; Resp 18; Pulse Ox 100% on R/A; al4 07:30 BP 102 / 62; Pulse 67; Resp 15; Pulse Ox 98% ; jl7 ED Course: 04:28 Patient arrived in ED. mw2 04:28 Greg Hall MD is Attending Physician. mh7 04:34 Patient has correct armband on for positive identification. Bed in low position. Side al4 rails up X 1. 04:35 COVID swab sent to lab. mw2 04:37 Triage completed. al4 04:38 Arm band placed on. al4 04:53 Sabine Oh, JHOAN is Primary Nurse. st1 04:54 COVID-19/FLU A+B Sent. st1 06:08 Chest Single View XRAY In Process Unspecified. EDMS 06:30 Kaleb Owen PA is PHCP. jmm 06:45 CT Chest For PE Angio In Process Unspecified. EDMS 06:57 Throat Culture Sent. st1 06:57 Blood Culture Adult (2) Sent. st1 07:29 No provider procedures requiring assistance completed. IV discontinued, intact, jl7 bleeding controlled, No redness/swelling at site. Pressure dressing applied. Administered Medications: 05:08 Drug: NS 0.9% 1000 ml Route: IV; Rate: 1000 ml; Site: left antecubital; st1 05:45 Follow up: IV Status: Completed infusion; IV Intake: 1000ml al4 05:09 Drug: Tylenol 1000 mg Route: PO; al4 05:46 Follow up: Response: No adverse reaction al4 Intake: 05:45 IV: 1000ml; Total: 1000ml. al4 Outcome: 07:14 Discharge ordered by . jm 07:29 Discharged to home ambulatory. jl7 07:29 Condition: stable 07:29 Discharge instructions given to patient, Instructed on discharge instructions, follow up and referral plans. medication usage, Demonstrated understanding of instructions, follow-up care, medications, Prescriptions given X 1. 07:30 Patient left the ED. jl7 Signatures: Dispatcher [employer] EDMS Kaleb Owen PA PA jmm Leal, Jahala, RN RN jl7 Dann Sarah mw2 Greg Hall MD MD 7 Nawaf Arteaga al4 Sabine Oh RN RN st1 Corrections: (The following items were deleted from the chart) 04:43 04:30 Chief complaint: EMS states: patient called out for a fever that has been present al4 for 2 days. EMS states that patient took an advil yesterday for her fever. today patient felt chest pain upon exertion, and general body aches. al4 05:11 05:09 Musculoskeletal: No signs and/or symptoms reported regarding the musculoskeletal al4 system. al4
--- NOTE | 2021-10-20 07:14 | RAD REPORT ---
EXAM DESCRIPTION: Alyssa Single View10/20/2021 6:09 am CLINICAL HISTORY: Congestion COMPARISON: August 2021 FINDINGS: The lungs appear clear of acute infiltrate. The heart is normal size IMPRESSION: No acute abnormalities displayed
--- NOTE | 2021-10-20 07:14 | EDPHYS ---
Physician Documentation [facility] Name: Vickie Davila Age: 46 yrs Sex: Female : 1975 Arrival Date: 10/20/2021 Time: 04:28 Bed 6 Private MD: ED Physician Greg Hall HPI: 10/20 04:54 This 46 yrs old Unknown Female presents to ER via EMS with complaints of Fever. Body mh7 aches.. 04:54 The patient reports fever, that was measured at 100.6 degrees Fahrenheit. Onset: The mh7 symptoms/episode began/occurred 2 day(s) ago. Modifying factors: there are no obvious modifying factors. Associated signs and symptoms: Pertinent positives: chest pain, cough, that is dry, headache, myalgias, runny nose, sinus congestion, Pertinent negatives: abdominal pain, altered mental status, arthralgias, backache, chills, diarrhea, pulling at ears, earache, hemoptysis, nausea, night sweats, sinus drainage, skin rash, shortness of breath, sore throat, swelling. Severity of symptoms: At their worst the symptoms were moderate yesterday, in the emergency department the symptoms have improved moderately. 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 Flu vaccine is not up to date. - Social history:: Smoking status: Patient denies any tobacco usage or history of. ROS: 04:54 Eyes: Negative for injury, pain, redness, and discharge, Neck: Negative for injury, mh7 pain, and swelling, Abdomen/GI: Negative for abdominal pain, nausea, vomiting, diarrhea, and constipation, Back: Negative for injury and pain, : Negative for injury, bleeding, discharge, and swelling, MS/Extremity: Negative for injury and deformity, Skin: Negative for injury, rash, and discoloration, Psych: Negative for depression, anxiety, suicide ideation, homicidal ideation, and hallucinations, Allergy/Immunology: Negative for hives, rash, and allergies, Endocrine: Negative for neck swelling, polydipsia, polyuria, polyphagia, and marked weight changes, Hematologic/Lymphatic: Negative for swollen nodes, abnormal bleeding, and unusual bruising. Exam: 04:54 Constitutional: This is a well developed, well nourished patient who is awake, alert, mh7 and in no acute distress. Head/Face: Normocephalic, atraumatic. Eyes: Pupils equal round and reactive to light, extra-ocular motions intact. Lids and lashes normal. Conjunctiva and sclera are non-icteric and not injected. Cornea within normal limits. Periorbital areas with no swelling, redness, or edema. ENT: Nares patent. No nasal discharge, no septal abnormalities noted. Tympanic membranes are normal and external auditory canals are clear. Oropharynx with no redness, swelling, or masses, exudates, or evidence of obstruction, uvula midline. Mucous membranes moist. Neck: Trachea midline, no thyromegaly or masses palpated, and no cervical lymphadenopathy. Supple, full range of motion without nuchal rigidity, or vertebral point tenderness. No Meningismus. Chest/axilla: Normal chest wall appearance and motion. Nontender with no deformity. No lesions are appreciated. Cardiovascular: Regular rate and rhythm with a normal S1 and S2. No gallops, murmurs, or rubs. Normal PMI, no JVD. No pulse deficits. Respiratory: Lungs have equal breath sounds bilaterally, clear to auscultation and percussion. No rales, rhonchi or wheezes noted. No increased work of breathing, no retractions or nasal flaring. Abdomen/GI: Soft, non-tender, with normal bowel sounds. No distension or tympany. No guarding or rebound. No evidence of tenderness throughout. Back: No spinal tenderness. No costovertebral tenderness. Full range of motion. Skin: Warm, dry with normal turgor. Normal color with no rashes, no lesions, and no evidence of cellulitis. MS/ Extremity: Pulses equal, no cyanosis. Neurovascular intact. Full, normal range of motion. Neuro: Awake and alert, GCS 15, oriented to person, place, time, and situation. Cranial nerves II-XII grossly intact. Motor strength 5/5 in all extremities. Sensory grossly intact. Cerebellar exam normal. Normal gait. Psych: Awake, alert, with orientation to person, place and time. Behavior, mood, and affect are within normal limits. Vital Signs: 04:35 BP 109 / 65; Pulse 97; Resp 18 S; Pulse Ox 96% on R/A; al4 04:39 Temp 100.3(O); al4 05:00 BP 104 / 83; Pulse 76; Resp 18; Pulse Ox 100% on R/A; al4 06:00 BP 103 / 76; Pulse 78; Resp 18; Pulse Ox 100% on R/A; al4 07:30 BP 102 / 62; Pulse 67; Resp 15; Pulse Ox 98% ; jl7 MDM: 07:13 Data reviewed: vital signs, nurses notes. Counseling: I had a detailed discussion with jacky the patient and/or guardian regarding: the historical points, exam findings, and any diagnostic results supporting the discharge/admit diagnosis, lab results, radiology results, the need for outpatient follow up, to return to the emergency department if symptoms worsen or persist or if there are any questions or concerns that arise at home. 07:[address] [facility] 10/20 04:43 Order name: COVID-19/FLU A+B; Complete Time: 05:44 [facility] 10/20 04:51 Order name: Basic Metabolic Panel; Complete Time: 05:44 10/20 04:51 Order name: CBC with Diff 10/20 04:51 Order name: LFT's; Complete Time: 05:44 10/20 04:51 Order name: Magnesium; Complete Time: 05:44 10/20 04:51 Order name: Chest Single View XRAY; Complete Time: 07:25 10/20 04:51 Order name: NT PRO-BNP; Complete Time: 05:44 10/20 04:51 Order name: PT-INR; Complete Time: 05:44 10/20 04:51 Order name: Troponin HS; Complete Time: 05:44 10/20 04:52 Order name: Rapid Strep; Complete Time: 05:44 10/20 04:52 Order name: Blood Culture Adult (2) 10/20 05:34 Order name: Throat Culture [facility] 10/20 05:44 Order name: D-Dimer; Complete Time: 06:12 [facility] 10/20 04:51 Order name: EKG; Complete Time: 05:12 [facility] 10/20 04:51 Order name: Cardiac monitoring; Complete Time: 05:08 10/20 04:51 Order name: EKG - Nurse/Tech; Complete Time: 05:08 10/20 04:51 Order name: IV Saline Lock; Complete Time: 05:08 10/20 04:51 Order name: Labs collected and sent; Complete Time: 05:09 10/20 04:51 Order name: O2 Per Protocol; Complete Time: 04:54 10/20 04:51 Order name: O2 Sat Monitoring; Complete Time: 04:54 10/20 06:16 Order name: CT Chest For PE Angio; Complete Time: 07:12 7 Administered Medications: 05:08 Drug: NS 0.9% 1000 ml Route: IV; Rate: 1000 ml; Site: left antecubital; st1 05:45 Follow up: IV Status: Completed infusion; IV Intake: 1000ml al4 05:09 Drug: Tylenol 1000 mg Route: PO; al4 05:46 Follow up: Response: No adverse reaction al4 Disposition Summary: 10/20/21 07:14 Discharge Ordered Location: Home jm Condition: Stable [facility] Diagnosis - Coronavirus infection, unspecified [facility] Followup: jmm - With: Private Physician - When: 2 - 3 days - Reason: Recheck today's complaints, Continuance of care, Re-evaluation by your physician Discharge Instructions: - Discharge Summary Sheet [facility] - COVID-19 [facility] Forms: - Medication Reconciliation Form [facility] - Thank You Letter [facility] - Antibiotic Education [facility] - Prescription Opioid Use [facility] Prescriptions: - albuterol sulfate 90 mcg/actuation Inhalation HFA aerosol inhaler - inhale 2 puff by INHALATION route every 4-6 hours; 1 Pump; Refills: 0, Product [facility] Selection Permitted Signatures: Dispatcher [employer] EDMS Kaleb Owen PA PA m Greg Hall MD MD 7 Nawaf Arteaga [facility] Sabine Oh RN RN st1 Corrections: (The following items were deleted from the chart) 05:41 05:12 COVID-19/FLU A+B+MOL.LAB.BRZ ordered. EDMS EDMS
[2021-10-20 07:56] VITALS: TEMP 100.3
[2021-10-20 08:07] VITALS: BP 102/62; O2SAT 98
[2021-10-20 09:33] LABS: Blood Morphology Comment NOTED (NOT SEEN); Platelet Estimate ADEQ; Rouleau NOTED
--- NOTE | 2021-10-22 08:07 | EKG ---
Test Date: 2021-10-20 Test Time: 05:07:39 Leg Man: ANA PAULA MEASUREMENT RESULTS: Intervals: Rate: 76 IA: 158 QRSD: 78 QT: 378 QTc: 425 [place]: P: IA: 158 QRS: 90 T: 129 INTERPRETIVE STATEMENTS: Normal sinus rhythm Lateral infarct, age undetermined Abnormal ECG Compared to ECG 07/11/2021 19:47:45 Myocardial infarct finding now present Sinus bradycardia no longer present Electronically Signed On 10-22-21 08:03:17 HOUSE SITTER by Bartolo Santos
== END ==
LOC: ER 04:26
DX: U07.1 COVID-19 (principal)
CPT/HCPCS: 93005; 87040 ×2; 87070; 85025; 80048; 36415; 83735; 85610; 85379; 80076; 87081; 84484; 83880; 0240U; 71275; 71045; 96360; 99284; Q9967; J7030

== ENCOUNTER 2022-01-16 09:21 | Day surgery (SDC) | payer OTHER ==
[2022-01-14 14:00] LABS: Hematocrit 36.9 % (36.0-45.0); Lymphocytes % 29.5 % (15.3-44.8); RBC Red Blood Cell Count 4.07 M/uL (3.86-4.86)
[2022-01-14 14:10] LABS: Potassium 3.8 mmol/L (3.5-5.1)
[2022-01-14 14:21] LABS: Protime INR 1.04
[2022-01-16] MEDS ORDERED: CEFAZOLIN SODIUM 1 GM/VIAL ONE (09:45)
[2022-01-16] MEDS ORDERED: Ringers Lactate 1,000 ML IV ONE (09:45)
[2022-01-16] MEDS ORDERED: MIDAZOLAM HCL 2 MG/2 ML INJ ONE (10:08)
[2022-01-16] MEDS ORDERED: LIDOCAINE 2% MPF 5 ML VIAL ONE (10:08)
[2022-01-16] MEDS ORDERED: propofoL 200 MG/20 ML VIAL IV ONE (10:08)
[2022-01-16] MEDS ORDERED: FENTANYL CITR 100 MCG/2 ML ONE (10:08)
[2022-01-16] MEDS ORDERED: ONDANSETRON 4 MG/2 ML VIAL ONE ×2 (10:09→12:04)
[2022-01-16] MEDS ORDERED: BUPIVACAINE 0.5% PF 10 ML VIAL ONE (10:43)
[2022-01-16] MEDS ORDERED: BUPIVACAINE 0.25% PF 10 ML VIAL ONE (11:19)
[2022-01-16] MEDS ORDERED: dexAMETHasone 4 MG/ML VIAL ONE (11:24)
--- NOTE | 2022-01-16 12:00 | P.BOP ---
Preoperative diagnosis: left knee painful scar Postoperative diagnosis: same Primary procedure: excision of lesion over left knee scar Cotton Puller: NONE,NONE Estimated blood loss: 1 cc Specimen: left knee scar Findings: see dictation Anesthesia: General Complications: None Implants: none Fluids & blood products: per anesthesia record; 10 mins @ 250 mmHg Transferred to: Recovery Room Condition: Good
[2022-01-16] MEDS: FENTANYL CITR 100 MCG/2 ML ONE ×2 (12:04→12:11)
[2022-01-16] MEDS ORDERED: METOCLOPRAMIDE 10 MG/2mL INJ ONE (12:14)
[2022-01-16 13:25] VITALS: BP 100/58; TEMP 97.3; O2SAT 100
--- NOTE | 2022-01-17 05:03 | OP ---
Date of Procedure: 01/16/2022 Surgeon: Pool Hernandez MD Preoperative Diagnosis: Left knee painful scar. Postoperative Diagnosis: Left knee painful scar. Procedure Performed: Excision of lesion over the left knee scar. Anesthesia: General LMA. Fluids: Per Anesthesia record. Ebl: 1 cc. Implants: None. Complications: None. Indication For Procedure: Vickie is a 46-year-old female who had undergone left knee arthroscopic pa rtial lateral meniscectomy earlier this year. Her incision went on to heal, however, over 3 months a fter her surgery, she developed a swelling and hyperpigmentation of her scar, which became painful an d she was given a course of antibiotics. However, she really saw no improvement of her symptoms with antibiotics or with RICE therapy. She reports swelling and bubbling of the scar, which was painful and sensitive. I discussed with the patient at length risks and benefits associated with the procedu re including our recurrence of painful scar and she expressed understanding and elected to proceed wi operative treatment. We also discussed possible referral to Dermatology for evaluation and treatm ent recommendations. The patient agreed to proceed with operative treatment. Description Of Procedure: After informed consent was obtained, the patient was identified in the pre operative holding area. The left lower extremity was marked. The patient was then brought back to t operating room, transferred to the operative table in supine fashion, placed under general LMA ane sthesia. The left lower extremity was then prepped and draped in usual sterile fashion. A time-out was initiated. The correct patient and procedure were confirmed and identified. The left lower extr emity was exsanguinated using Esmarch and tourniquet was inflated to 250 mmHg. A 15 blade was then us ed to ellipse out the prior scar and hyperpigmented lesion centered over the scar. With excision, th ere was some dark hematoma like fluid that was expressed. The excised tissue was then sent to [facility] for further evaluation. The wound was then irrigated thoroughly with normal saline. Subcutaneou s tissue was approximated using a 4-0 Vicryl. Skin was approximated using a 4-0 nylon. Sterile dres sings were applied. Tourniquet was let down. Patient was awakened and transferred to PACU in stable condition. Postoperative Plan: The patient will be weightbearing as tolerated. She will follow up in [facility] for re-evaluation, wound check, and suture removal. ALPHONSE/ZAHIRA Voice ID: [id number] Report ID: [id number]
== END 2022-01-16 13:10 | disposition home or self-care (01) ==
LOC: OR 09:21
PROVIDERS: ATTEND Orthopaedic Surgery Sports Medicine
PROC: 0HBLXZZ Excision of Left Lower Leg Skin, External Approach (ICD-10-PCS; principal; 2022-01-16 11:00)
DX: L90.5 Scar conditions and fibrosis of skin (principal)
CPT/HCPCS: 85025; 80048; 36415; 85610; 88304; 85730; 11401; J2704; J1100; J2765; J2250; J3010 ×2; J7120; J2405 ×2; J0690

== ENCOUNTER 2022-03-17 19:44 | Emergency (ER) | payer OTHER ==
--- OUTSIDE RECORDS SUMMARY | 2022-03-17 19:47 | XMS REPORT | Clinical Summary ---
:1975 Author Organization [facility] MD Chakraborty [facility] Address [address] [place] [address] Care Team Providers Name Role Phone Unavailable Primary Care Provider Unavailable Allergies Not on File Medications Not on file Active Problems Not on file Encounters Date Type Specialty Care Team Description 09/06/2021 Travel after 03/17/2021 Social History Tobacco Use Types Packs/Day Years Used Date Never Assessed Sex Assigned at Date Recorded Not on file Job Start Date Occupation Industry Not on file Not on file Not on file Last Filed Vital Signs Not on file Plan of Treatment Not on file Results Not on fileafter 03/17/2021 Insurance Payer Benefit Plan / Subscriber ID Effective Dates Phone Addre ss Type Group [id number] Effective for all [address] [place] [address]
--- OUTSIDE RECORDS SUMMARY | 2022-03-17 19:47 | XMS REPORT | Continuity of Care Document ---
:1975 Author Organization [facility] t Address [address] [place] [address] Care Team Providers Name Role Phone Tala [...] 1-14 [facility] [place] penic[facility] DA Active U 2005-0 [facility] in G 5-25 [facility] [place] Social History Social Habit Start Date Stop Date Quantity Comments Source Sex Assigned At [birth year] [facility] 00:00:00 00:00:00 MD [place] [facility] Medications This patient has no known medications. Procedures This patient has no known procedures. Encounters Start End Encounter Admission Attending Care Care Encounter Source Date/Time Date/Time Type Type Clinicians Facility Department ID 2021-01-30 Inpatient JOSE G Danielle [facility] DAYS [id number] [facility] 09:30:00 Tala [id number] [facility] 2021-09-06 2021-09-06 Travel [id number] [facility] 00:00:00 00:00:00 [id number] ity of 3.412.2.7 [id number] [id number] 084.8 .8 [facility] 2021-01-29 2021-01-29 Outpatient Lolis [facility] OUTD [id number] [facility] 09:30:00 09:30:00 Tala [id number] [facility] 2019-08-06 2019-08-06 Emergency E JV, [facility] [id number] [facility] 15:49:00 18:05:00 FARIDEH Results Test Description Test Time Test Comments Results Result Comments Source UTERUS,OTHER THAN PROLAPSE/NERI 2021-01-31 16:14:00 Test Item Value Reference Range Interpretation Comme nts UTERUS,OTHER RUN DATE: THAN 01/31/21 [facility] PAGE 1 RUN TIME: 1702 PROLAPSE/NERI Specimen Inquiry RUN USER: INTERFACE (test code = UTERUSOTH) PATIENT: WHITLEY NEGRO [facility] #: [id number] AGE/SX: 45/ F [facility] RE01/30/21REG DR: Tala Danielle MD : [birth year] BED: A DIS: 01/31/21 STATUS: DIS Dolores TLOC: SPEC #: [id number] RECD: STATUS: ALFREDO MONK #: [id number] CELY: 01/30/21- SUBM DR: Tala Danielle MD ENTERED: 01/30/21 SP TYPE: UTERUSOTH OT DR: ORDERED: LEVEL V SURGICA/6 CODES: [id number] - UTERUS, NOS [id number] - PERITONEUM, NOS PROCEDURES: LEVEL V SURGICA [...] tube - benign paratubal cyst CPT : 49071 x5, 73768 CONTINUED ON NEXT PAGE RUN DATE: 01/31/21 [facility] PAGE 2 RUN TIME: 1702 Specimen Inquiry RUN USER: INTERFACE SPEC #: [id number] PATIENT: WHITLEY NEGRO #[id number] (Continued) FINAL DIAGNOSIS (Continued) lsh/wpd GROSS DESCRIPTION [...] with fimbriae. Sectioning reveals a pinpoint lumen. Senior Product Designer sections are submitted as follows: F1 - anterior cervix F2 - posterior cervix F3 - anterior endomyometrium, ful l-thickness CONTINUED ON NEXT PAGE RUN DATE: 01/31/21 [facility] PAGE 3 RUN TIME: 1702 Specimen Inquiry RUN USER: INTERFACE SPEC #: [id number] PATIENT: WHITLEY NEGRO #[id number] (Continued) JACOB BURCIAGA (Continued) F4 - posterior endomyometrium, full-thickness F5 - right fallopian tube F6 - left fallopian tube ar/judy islas 01/30/21 Signed Amber Jones MD 01/31/21 1614 END OF REPORT CBC W/AUTO [id number] 05:48:00 Test Item Value Reference Range Interpretation [...] code = PLTMR) COVID 19 Asymptomatic IH [id number] 15:45:00 Test Item Value Reference Range Interpretation [...] or approved; th e test hasbeen authori nicoled by FDA under an Emerge ncy Use [...] and/o r diagnosis of CO VID-19 under Bvgyewt90 4(b)(1) of the Act, 21 U.S .C. 360bbb-3(b)(1), unless theauthorizatio n is terminated or r evoked sooner. AG HEPATITIS B [id number] 11:06:00 Test Item Value Reference Range Interpretation Comments AG HEPATITIS B SURFACE (test code NONREACTIVE NONREACTIVE = HBSAG) IS CONSENT FORM SIGNED FOR HIV TESTING? YAB HEPATITIS C [id number] 11:06:00 Test Item Value Reference Range Interpretation Comments AB HEPATITIS C (test code = NONREACTIVE NONREACTIVE HCVAB) SIGNAL TO CUTOFF (test code = <0.02 <0.80 N CUTOFF) IS CONSENT FORM SIGNED FOR HIV TESTING? YAB HIV 1 11:06:00 Test Item Value Reference Range Interpretation Comments AB HIV 1 2 (test NONREACTIVE NONREACTIVE Done by Devi Rodgers code = OSK25FC) 4th Gen HIV Ag/Ab Combo Screen IS CONSENT FORM SIGNED FOR HIV TESTING? YAG HEPATITIS B [id number] 10:37:00 Test Item Value Reference Range Interpretation Comments AG HEPATITIS B SURFACE (test code NONREACTIVE NONREACTIVE = HBSAG) IS CONSENT FORM SIGNED FOR HIV TESTING? YAB HEPATITIS C [id number] 10:37:00 Test Item Value Reference Range Interpretation Comments AB HEPATITIS C (test code = HCVAB) NONREACTIVE SIGNAL TO CUTOFF (test code = CUTOFF) <0.80 IS CONSENT FORM SIGNED FOR HIV TESTING? YAB HIV 1 10:37:00 Test Item Value Reference Range Interpretation Comments AB HIV 1 2 (test code = CFF25HR) NONREACTIVE IS CONSENT FORM SIGNED FOR HIV TESTING? YCBC W/AUTO [id number] 10:24:00 Test Item Value Reference Range Interpretation [...] (test NORMAL NORMAL code = PLTMR) URINALYSIS [id number] 10:17:00 Test Item Value Reference Range Interpretation [...] NONE SEEN URINE SAMPLE: CLEAN CATCHHCG SERUM [id number] 10:11:00 Test Item Value Reference Range Interpretation Comments HCG SERUM QUAL (test code = HCGQL) NEGATIVE
[2022-03-17 20:29] LABS: Absolute Lymphocytes (CBC) 2.5 K/uL (0.7-4.9); Hematocrit 33.4 % (36.0-45.0); Lymphocytes % 24.9 % (15.3-44.8); MPV 8.7 fL (7.6-11.3); RBC Red Blood Cell Count 3.75 M/uL (3.86-4.86)
--- NOTE | 2022-03-17 20:33 | RAD REPORT ---
EXAM DESCRIPTION: CT - Head Brain Wo Cont - 03/17/2022 8:22 pm CLINICAL HISTORY: near syncope, weakness, numbness COMPARISON: Head Brain Wo Cont dated 07/11/2021; Head Brain Wo Cont dated 07/22/2016 TECHNIQUE: All CT scans are performed using dose optimization technique as appropriate and may inclu de automated exposure control or mA/KV adjustment according to patient size. FINDINGS: No intracranial hemorrhage, hydrocephalus or extra-axial fluid collection.No areas of brai n edema or evidence of midline shift. The paranasal sinuses and mastoids are clear. The calvarium is intact. IMPRESSION: No acute intracranial abnormality.
[2022-03-17 20:34] LABS: Protime INR 1.04
[2022-03-17] MEDS ORDERED: NA CHLORIDE 0.9% 1,000 ML ONE (20:36)
[2022-03-17 20:43] LABS: Magnesium 2.2 mg/dL (1.8-2.4); Potassium 3.7 mmol/L (3.5-5.1); Troponin High Sensitivity 4.8 pg/mL (<58.9)
--- NOTE | 2022-03-17 21:33 | ER ---
Nurse's Notes [facility] Name: Vickie Davila Age: 47 yrs Sex: Female : 1975 Arrival Date: 03/17/2022 Time: 19:45 Bed 4 Private MD: Diagnosis: Dehydration;Heat fatigue, transient;Bradycardia, unspecified Presentation: 03/17 19:48 Chief complaint: EMS states: Pt reports working in the garage over the last few day. jb4 today she began to get dizzy, have blurred vision and became nauseous. Her initial Systolic pressure was 100, gave 500ml of NS, she reported chest pain, gave 324mg of ASA, and 4mg of zofran. Coronavirus screen: At this time, the client does not indicate any symptoms associated with coronavirus-19. Ebola Screen: No symptoms or risks identified at this time. Initial Sepsis Screen: Does the patient meet any 2 criteria? No. Patient's initial sepsis screen is negative. Does the patient have a suspected source of infection? No. Patient's initial sepsis screen is negative. Risk Assessment: Do you want to hurt yourself or someone else? Patient reports no desire to harm self or others. Onset of symptoms was March 17, 2022. Transition of care: patient was not received from another setting of care. 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 - Social history:: Smoking status: Patient denies any tobacco usage or history of. - Family history:: not pertinent. - Hospitalizations: : No recent hospitalization is reported. Screenin:09 Abuse screen: Denies threats or abuse. Denies injuries from another. Nutritional as6 screening: No deficits noted. Tuberculosis screening: No symptoms or risk factors identified. Fall Risk None identified. Assessment: 20:00 General: Appears in no apparent distress. Behavior is calm, cooperative. Pain: as6 Complains of pain in chest. Neuro: Small Agitation-Sedation Scale (RASS): 0 - Alert and Calm Level of Consciousness is awake, alert, obeys commands, Oriented to person, place, time, situation, Reports dizziness, headache. Cardiovascular: JVD is absent Patient's skin is warm and dry. Respiratory: Respiratory effort is even, unlabored. Vital Signs: 19:48 BP 127 / 84; Pulse 60; Resp 12; Temp 98.0; Pulse Ox 100% on R/A; Weight 69.85 kg (R); jb4 Height 5 ft. 9 in. (175.26 cm) (R); 21:08 BP 131 / 77; Pulse 49; Resp 14 S; Pulse Ox 100% on R/A; as6 21:56 BP 112 / 75; Pulse 52; Resp 18; Pulse Ox 100% on R/A; kd3 19:48 Body Mass Index 22.74 (69.85 kg, 175.26 cm) jb4 ED Course: 19:45 Patient arrived in ED. ds4 19:50 Steve Zhu MD is Attending Physician. rn 19:51 Triage completed. jb4 19:51 Arm band placed on right wrist. jb4 19:52 Rosalino Lopez RN is Primary Nurse. as6 20:24 CT Head Brain wo Cont In Process Unspecified. EDMS 21:09 Maintain EMS IV. Dressing intact. Good blood return noted. Site clean \T\ dry. Gauge \T\ as 6 site: 20g LAC. 21:10 Bed in low position. Call light in reach. Side rails up X2. Adult w/ patient. Client as6 placed on continuous cardiac and pulse oximetry monitoring. NIBP monitoring applied. Warm blanket given. 21:55 No provider procedures requiring assistance completed. IV discontinued, intact, kd3 bleeding controlled, No redness/swelling at site. Pressure dressing applied. Administered Medications: 20:36 Drug: NS 0.9% 1000 ml Route: IV; Rate: 1000 ml; Site: left antecubital; kd3 21:57 Follow up: Response: No adverse reaction; IV Status: Completed infusion kd3 Medication: 21:56 VIS not applicable for this client. kd3 Outcome: 21:32 Discharge ordered by . rn 21:55 Discharged to home ambulatory. kd3 21:55 Condition: stable 21:55 Discharge instructions given to patient, family, Instructed on discharge instructions, follow up and referral plans. Demonstrated understanding of instructions, follow-up care. 21:57 Patient left the ED. kd3 Signatures: Dispatcher [employer] EDMS Steve Zhu MD MD rn Swanson, Donovan ds4 Britton Chapman RN RN jb4 Rosalino Lopez RN RN as6 Maryam Davis RN RN kd3
--- NOTE | 2022-03-17 21:33 | EDPHYS ---
Physician Documentation [facility] Name: Vickie Davila Age: 47 yrs Sex: Female : 1975 Arrival Date: 03/17/2022 Time: 19:45 Bed 4 Private MD: ED Physician Steve Zhu HPI: 03/17 20:20 This 47 yrs old Female presents to ER via EMS with complaints of dizziness, generalized rn weakness. 20:20 The patient presents with dizziness, feeling faint, generalized weakness, rn lightheadedness. Onset: The symptoms/episode began/occurred just prior to arrival. Modifying factors: The symptoms are alleviated by lying down, the symptoms are aggravated by standing up, changing position. Associated signs and symptoms: Pertinent positives: nausea, Pertinent negatives: abdominal pain, ataxia, confusion, focal weakness, head injury, headache, seizure, shortness of breath, syncope, vomiting. Severity of symptoms: At their worst the symptoms were moderate in the emergency department the symptoms have improved. The patient has not experienced similar symptoms in the past. The patient has not recently seen a physician. Pt reports working in [employer] last 3 days, not feeling ill, today began to feel lightheaded and dizzy, did not pass out. No fever. NO chest pain or sob. No abd pain. No vomiting. EMS reports BP 100 systolic, up to 125 systolic with fluids. Pt denies focal neuro complaints, states weakness all over. . 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 - Social history:: Smoking status: Patient denies any tobacco usage or history of. - Family history:: not pertinent. - Hospitalizations: : No recent hospitalization is reported. ROS: 20:20 Constitutional: Negative for fever, chills, and weight loss, Eyes: Negative for injury, rn pain, redness, and discharge, Neck: Negative for injury, pain, and swelling, Cardiovascular: Negative for chest pain, palpitations, and edema, Respiratory: Negative for shortness of breath, cough, wheezing, and pleuritic chest pain, Abdomen/GI: Negative for abdominal pain, vomiting, diarrhea, and constipation, Back: Negative for injury and pain, MS/Extremity: Negative for injury and deformity, Skin: Negative for injury, rash, and discoloration, Neuro: Negative for headache, numbness, tingling, and seizure. Exam: 20:20 Constitutional: This is a well developed, well nourished patient who is awake, alert, rn and in no acute distress. Head/Face: Normocephalic, atraumatic. Eyes: Pupils equal round and reactive to light, extra-ocular motions intact. ENT: dry MM Cardiovascular: Regular rate and rhythm. No pulse deficits. Respiratory: No increased work of breathing, no retractions or nasal flaring. Abdomen/GI: Soft, non-tender Skin: Warm, dry MS/ Extremity: Pulses equal, no cyanosis. Neurovascular intact. Full, normal range of motion. Equal circumference. Neuro: Awake and alert, GCS 15, oriented to person, place, time, and situation. Cranial nerves II-XII grossly intact. Motor strength 4/5 in all extremities. Sensory grossly intact. 21:14 ECG was reviewed by the Attending Physician. rn Vital Signs: 19:48 BP 127 / 84; Pulse 60; Resp 12; Temp 98.0; Pulse Ox 100% on R/A; Weight 69.85 kg (R); jb4 Height 5 ft. 9 in. (175.26 cm) (R); 21:08 BP 131 / 77; Pulse 49; Resp 14 S; Pulse Ox 100% on R/A; as6 21:56 BP 112 / 75; Pulse 52; Resp 18; Pulse Ox 100% on R/A; kd3 19:48 Body Mass Index 22.74 (69.85 kg, 175.26 cm) jb4 MDM: 19:51 Patient medically screened. rn 21:31 Differential diagnosis: generalized weakness, hypovolemia, idiopathic dizziness, rn dehydration, volume depletion. Data reviewed: vital signs, nurses notes, lab test result(s), EKG, radiologic studies, CT scan, and as a result, I will discharge patient. Counseling: I had a detailed discussion with the patient and/or guardian regarding: the historical points, exam findings, and any diagnostic results supporting the discharge/admit diagnosis, lab results, radiology results, the need for outpatient follow up, to return to the emergency department if symptoms worsen or persist or if there are any questions or concerns that arise at home. Response to treatment: the patient's symptoms have markedly improved after treatment, and as a result, I will discharge patient. Special discussion: I discussed with the patient/guardian in detail that at this point there is no indication for admission to the hospital. It is understood, however, that if the symptoms persist or worsen the patient needs to return immediately for re-evaluation. 03/17 19:52 Order name: Basic Metabolic Panel; Complete Time: 20:44 03/17 19:52 Order name: CBC with Diff; Complete Time: 20:55 03/17 19:52 Order name: CPK; Complete Time: 20:44 03/17 19:52 Order name: Magnesium; Complete Time: 20:44 03/17 19:52 Order name: Protime (+inr); Complete Time: 20:44 03/17 19:52 Order name: Ptt, Activated; Complete Time: 20:44 03/17 19:52 Order name: CT Head Brain wo Cont; Complete Time: 20:44 03/17 19:52 Order name: EKG; Complete Time: 19:53 03/17 19:52 Order name: Cardiac monitoring; Complete Time: 19:52 03/17 19:52 Order name: EKG - Nurse/Tech; Complete Time: 20:04 03/17 19:52 Order name: IV Saline Lock; Complete Time: 19:52 03/17 19:52 Order name: Labs collected and sent; Complete Time: 20:03/17 19:52 Order name: Troponin High Sensitivity; Complete Time: 20:44 03/17 19:52 Order name: O2 Per Protocol; Complete Time: 19:52 03/17 19:52 Order name: O2 Sat Monitoring; Complete Time: 19:52 rn EC:14 Rate is 56 beats/min. Rhythm is regular. QRS [place] is Normal. NM interval is normal. QRS rn interval is normal. QT interval is normal. No Q waves. T waves are Normal. No ST changes noted. Clinical impression: Sinus bradycardia. Interpreted by me. Reviewed by me. Administered Medications: 20:36 Drug: NS 0.9% 1000 ml Route: IV; Rate: 1000 ml; Site: left antecubital; kd3 21:57 Follow up: Response: No adverse reaction; IV Status: Completed infusion kd3 Disposition Summary: 03/17/22 21:32 Discharge Ordered Location: Home rn Problem: new rn Symptoms: have improved rn Condition: Stable rn Diagnosis - Dehydration rn - Heat fatigue, transient rn - Bradycardia, unspecified rn Followup: rn - With: Private Physician - When: As needed - Reason: Recheck today's complaints, Re-evaluation by your physician Discharge Instructions: - Discharge Summary Sheet rn - Bradycardia, Adult rn - Dehydration, Adult rn - Heat Exhaustion rn Forms: - Medication Reconciliation Form rn - Thank You Letter rn - Antibiotic 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 rn kd3
[2022-03-17 22:14] VITALS: TEMP 98; O2SAT 100
[2022-03-17 22:21] VITALS: BP 112/75
--- NOTE | 2022-03-18 11:51 | EKG ---
Test Date: 2022-03-17 Test Time: 19:56:24 Habilitative Interventionist: LIUDMILA MEASUREMENT RESULTS: Intervals: Rate: 56 IL: 144 QRSD: 82 QT: 450 QTc: 434 Drewsey: P: 47 IL: 144 QRS: 42 T: 69 INTERPRETIVE STATEMENTS: Sinus bradycardia Otherwise normal ECG Compared to ECG 10/20/2021 05:07:39 Sinus rhythm no longer present Myocardial infarct finding no longer present Electronically Signed On 03-18-22 11:50:07 CDT by Bartolo Santos
== END 2022-03-17 21:57 | disposition home or self-care (01) ==
LOC: ER 19:44
DX: E86.0 Dehydration (principal); T67.6XXA Heat fatigue, transient, initial encounter; R00.1 Bradycardia, unspecified
CPT/HCPCS: 93005; 85025; 80048; 36415; 83735; 82550; 85610; 85730; 84484; 70450; J7030

== ENCOUNTER 2022-03-21 10:19 | Emergency (ER) | payer OTHER ==
--- OUTSIDE RECORDS SUMMARY | 2022-03-21 10:21 | XMS REPORT | Clinical Summary ---
:1975 Author Organization [facility] MD [facility] Address [address] [place] [address] Care Team Providers Name Role Phone Unavailable Primary Care Provider Unavailable Allergies Not on File Medications Not on file Active Problems Not on file Encounters Date Type Specialty Care Team Description 09/06/2021 Travel after 03/21/2021 Social History Tobacco Use Types Packs/Day Years Used Date Never Assessed Sex Assigned at Date Recorded Not on file Job Start Date Occupation Industry Not on file Not on file Not on file Last Filed Vital Signs Not on file Plan of Treatment Not on file Results Not on fileafter 03/21/2021 Insurance Payer Benefit Plan / Subscriber ID Effective Dates Phone Addre ss Type Group [employer] Effective for all [address] [place] [address]
--- OUTSIDE RECORDS SUMMARY | 2022-03-21 10:22 | XMS REPORT | Continuity of Care Document ---
:1975 Author Organization [facility] t Address [address] [place] [address] Care Team Providers Name Role Phone Tala [...] Penicill DA Active U RASH [facility] [place] No Known DA Active U [facility] Contrast -14 [facility] [place] No Known DA Active U 2006- [facility] Food -14 [facility] [place] No Known DA Active U 2006- [facility] Other -14 [facility]: [facility] [place] PENICILL DA Active U RASH 2007-0 [facility] IN 1-14 [facility] 00:[facility]: [facility] [place] penicill DA Active U 2006-0 [facility] in G 5-25 [facility] [place] Social History Social Habit Start Date Stop Date Quantity Comments Source Sex Assigned At [birth year] [facility] 00:00:00 00:00:00 MD [facility] Medications This patient has no known medications. Procedures This patient has no known procedures. Encounters Start End Encounter Admission Attending Care Care Encounter Source Date/Time Date/Time Type Type Clinicians Facility Department ID 2021-01-30 Inpatient JOSE G Danielle [facility] DAYS [id number] [facility] 09:30:[address] Tala [id number] 2021-09-06 2021-09-06 Travel 1.2.840.1 [id number] [facility] 00:00:00 00:00:00 [id number] it[place] of 3.[place].2.[place] .[id number] 084.8 MD Smith [facility] 2021-09-06 2021-09-06 Travel 1.2.840.1 [id number] [facility] 00:00:00 00:00:00 [id number] ity of 3.412.2.7 [place]3.[place] .[id number] 084.8 MD Smith [facility] 2021-01-29 2021-01-29 Outpatient Danielle [facility] OUTD [id number] [facility] 09:30:00 09:30:00 Tala [id number] [facility] 2019-08-06 2019-08-06 Emergency E KORY CARIAS [id number] [facility] 15:49:00 18:05:00 FARIDE[facility] Results Test Description Test Time Test Comments Results Result Comments Source UTERUS,OTHER THAN PROLAPSE/NERI 2021-01-31 16:14:00 Test Item Value Reference Range Interpretation Comme nts UTERUS,OTHER RUN DATE: THAN 01/31/21 [facility] PAGE 1 RUN TIME: 1701 PROLAPSE/NERI Specimen Inquiry RUN USER: INTERFACE (test code = UTERUSOTH) PATIENT: WHITLEY NEGRO LOC: [place] U #: [id number] AGE/SX: 45/ F ROOM: [facility] RE01/30/21REG DR: Tala Danielle MD : [birth year] BED: A DIS: 01/31/21 STATUS: DIS Dolores TLOC: SPEC #: [id number] RECD: STATUS: ALFREDO MONK #: [id number] CELY: 01/30/21- SUBM DR: Tala Danielle MD ENTERED: 01/30/21 SP TYPE: UTERUSOTH OTHR DR: ORDERED: LEVEL V SURGICA/6 CODES: [id number] - UTERUS, NOS [id number] - PERITONEUM, NOS PROCEDURES: LEVEL V SURGICA [...] tube - benign paratubal cyst CPT : 58343 x5, 44374 CONTINUED ON NEXT PAGE RUN DATE: 01/31/21 [facility] PAGE 2 RUN TIME: 1702 Specimen Inquiry RUN USER: INTERFACE SPEC #: [id number] PATIENT: WHITLEY NEGRO #[id number] (Continued) FINAL DIAGNOSIS (Continued) ls/wpd GROSS DESCRIPTION [...] with fimbriae. Sectioning reveals a pinpoint lumen. Match Up Person sections are submitted as follows: F1 - anterior cervix F2 - posterior cervix F3 - anterior endomyometrium, ful l-thickness CONTINUED ON NEXT PAGE RUN DATE: 01/31/21 [facility] PAGE 3 RUN TIME: 1701 Specimen Inquiry RUN USER: INTERFACE SPEC #: [id number] PATIENT: WHITLEY NEGRO #[id number] (Continued) GROSS DESCRIPTION (Continued) F4 - posterior endomyometrium, full-thickness F5 - right fallopian tube F6 - left fallopian tube nz/w pd 01/30/21 Signed Amber Jones MD 01/31/21 1614 END OF REPORT CBC W/AUTO [id number] 05:48:00 Test Item Value Reference Range Interpretation [...] code = PLTMR) COVID 19 Asymptomatic IH [id number] 15:45:00 Test Item Value Reference Range Interpretation [...] of Accreditation. This test is only authori [place] for the duration of thedeclaration that circumstances e xist justifying theauthorizatio n of emergency use o f in vitro diagnostic test sfor detection and/o r diagnosis of CO VID-19 under Bsnytnl01 4(b)(1) of the Act, 21 U.S .C. 360bbb-3(b)(1), unless theauthorizatio n is terminated or r evoked sooner. AG HEPATITIS B [id number] 11:06:00 Test Item Value Reference Range Interpretation Comments AG HEPATITIS B SURFACE (test code NONREACTIVE NONREACTIVE = HBSAG) IS CONSENT FORM SIGNED FOR HIV TESTING? YAB HEPATITIS C [id number] 11:06:00 Test Item Value Reference Range Interpretation Comments AB HEPATITIS C (test code = NONREACTIVE NONREACTIVE HCVAB) SIGNAL TO CUTOFF (test code = <0.02 <0.80 N CUTOFF) IS CONSENT FORM SIGNED FOR HIV TESTING? YAB HIV 1 11:06:00 Test Item Value Reference Range Interpretation Comments AB HIV 1 2 (test NONREACTIVE NONREACTIVE Done by [facility] code = [id number]) 4th Gen HIV Ag/Ab Combo Screen IS CONSENT FORM SIGNED FOR HIV TESTING? YAG HEPATITIS B [id number] 10:37:00 Test Item Value Reference Range Interpretation Comments AG HEPATITIS B SURFACE (test code NONREACTIVE NONREACTIVE = HBSAG) IS CONSENT FORM SIGNED FOR HIV TESTING? YAB HEPATITIS C [id number] 10:37:00 Test Item Value Reference Range Interpretation Comments AB HEPATITIS C (test code = HCVAB) NONREACTIVE SIGNAL TO CUTOFF (test code = CUTOFF) <0.80 IS CONSENT FORM SIGNED FOR HIV TESTING? YAB HIV 1 10:37:00 Test Item Value Reference Range Interpretation Comments AB HIV 1 2 (test code = DQH91CV) NONREACTIVE IS CONSENT FORM SIGNED FOR HIV TESTING? YCBC W/AUTO [id number] 10:24:00 Test Item Value Reference Range Interpretation [...] (test NORMAL NORMAL code = PLTMR) URINALYSIS [id number] 10:17:00 Test Item Value Reference Range Interpretation [...] NONE SEEN URINE SAMPLE: CLEAN CATCHHCG SERUM [id number] 10:11:00 Test Item Value Reference Range Interpretation Comments HCG SERUM QUAL (test code = HCGQL) NEGATIVE
[2022-03-21] MEDS ORDERED: ACETAMINOPHEN 500 MG TAB ONE (10:52)
[2022-03-21] MEDS ORDERED: IBUPROFEN 400 MG TAB ONE (10:52)
--- NOTE | 2022-03-21 11:28 | RAD REPORT ---
EXAM DESCRIPTION: RAD - Foot Left 3 View - 03/21/2022 11:03 am CLINICAL HISTORY: Left Foot pain status post injury FINDINGS: No fracture or dislocation is seen.
--- NOTE | 2022-03-21 11:34 | EDPHYS ---
Physician Documentation [facility] Name: Vickie Davila Age: 47 yrs Sex: Female : 1975 Arrival Date: 03/21/2022 Time: 10:20 Bed 18 Private MD: ED Physician Nick Mosqueda HPI: 03/21 10:45 This 47 yrs old Female presents to ER via Ambulatory with complaints of Toe Injury. cp 10:45 The patient presents with an injury, pain, that is acute. The complaints affect the cp left small toe. 10:45 Context: resulted from the patient kicking, a solid object, the patient can fully bear cp weight, the patient is able to ambulate, with mild difficulty. Onset: The symptoms/episode began/occurred yesterday. Associated signs and symptoms: The patient has no apparent associated signs or symptoms. 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 - Social history:: Smoking status: Patient denies any tobacco usage or history of. Patient/guardian denies using alcohol. ROS: 10:50 MS/extremity: Positive for injury or acute deformity, ecchymosis, swelling, tenderness, cp of the left small toe. 10:50 Constitutional: Negative for body aches, chills, fever. cp 10:50 Neck: Negative for pain with movement, pain at rest, stiffness. 10:50 Respiratory: Negative for cough, shortness of breath, wheezing. 10:50 Abdomen/GI: Negative for abdominal pain, nausea, vomiting, and diarrhea. 10:50 Back: Negative for pain at rest, pain with movement. 10:50 All other systems are negative. Exam: 10:55 Constitutional: The patient appears in no acute distress, alert, awake, well developed, cp well nourished. 10:55 Musculoskeletal/extremity: Extremities: grossly normal except: noted in the left fifth cp toe: ecchymosis, pain, swelling, tenderness, ROM: limited passive range of motion due to pain, in the left fifth toe, Perfusion: the extremity is normally perfused throughout, the left fifth toe Sensation intact. Vital Signs: 10:29 BP 122 / 79; Pulse 63; Resp 18; Temp 97.3(TE); Pulse Ox 100% on R/A; Weight 70.31 kg; ld1 Height 5 ft. 9 in. (175.26 cm); Pain 7/10; 11:53 BP 126 / 77; Pulse 65; Resp 15; Pulse Ox 100% on R/A; ld1 10:29 Body Mass Index 22.89 (70.31 kg, 175.26 cm) ld1 MDM: 10:33 Patient medically screened. cp 11:00 Differential diagnosis: fracture, dislocation, contusion. cp 11:20 Data reviewed: vital signs, nurses notes, radiologic studies, plain films. Test cp interpretation: by ED physician or midlevel provider: xrays of left foot show fracture of distal aspect proximal phalanx left fifth toe. 03/21 10:36 Order name: XRAY Foot LEFT 3 View; Complete Time: 11:30 cp 03/21 11:31 Interpretation: Reviewed report. cp 03/21 11:22 Order name: Post-op shoe; Complete Time: 11:33 cp 03/21 11:22 Order name: Misc. Order: susanna tape toes; Complete Time: 11:33 cp Administered Medications: 11:33 Drug: Tylenol 1000 mg Route: PO; ld1 11:33 Drug: Ibuprofen 800 mg Route: PO; ld1 Disposition: 12:57 Co-signature as Attending Physician, Nick Mosqueda MD I agree with the assessment and kdr plan of care. Disposition Summary: 03/21/22 11:33 Discharge Ordered Location: Home cp Problem: new cp Symptoms: have improved cp Condition: Stable cp Diagnosis - Fracture of proximal phalanx of lesser toe(s) - left fifth toe cp Followup: cp - With: Pool Hernandez MD - When: 2 - 3 days - Reason: Recheck today's complaints Discharge Instructions: - Discharge Summary Sheet cp - Toe Fracture cp Forms: - Medication Reconciliation Form cp - Thank You Letter cp - Antibiotic Education cp - Prescription Opioid Use cp Prescriptions: - Ibuprofen 800 mg Oral Tablet - take 1 tablet by ORAL route every 8 hours As needed take with food; 30 tablet; cp Refills: 0, Product Selection Permitted - Tramadol 50 mg Oral Tablet - take 1 tablet by ORAL route every 8 hours as needed; 12 tablet; Refills: 0, cp Product Selection Permitted Signatures: Dispatcher MedHoNick Abrams MD MD kdr Page, Corey, PA PA cp Dibbern, Lauren, RN RN ld1
--- NOTE | 2022-03-21 11:34 | ER ---
Nurse's Notes [facility] Name: Vickie Davila Age: 47 yrs Sex: Female : 1975 Arrival Date: 03/21/2022 Time: 10:20 Bed 18 Private MD: Diagnosis: Fracture of proximal phalanx of lesser toe(s)-left fifth toe Presentation: 03/21 10:29 Chief complaint: Patient states: Left foot pain - pinky toe bruised from kicking box on ld1 floor. Pt c/o left foot pain. Coronavirus screen: At this time, the client does not indicate any symptoms associated with coronavirus-19. Ebola Screen: No symptoms or risks identified at this time. Initial Sepsis Screen: Does the patient meet any 2 criteria? No. Patient's initial sepsis screen is negative. Does the patient have a suspected source of infection? No. Patient's initial sepsis screen is negative. Risk Assessment: Do you want to hurt yourself or someone else? Patient reports no desire to harm self or others. Onset of symptoms was March 21, 2022. 10:29 Method Of Arrival: Ambulatory ld1 10:29 Acuity: CRISTAL 4 ld1 Triage Assessment: 10:30 General: Appears in no apparent distress. comfortable, Behavior is calm, cooperative, ld1 appropriate for age. Pain: Complains of pain in left foot Pain does not radiate. Pain currently is 7 out of 10 on a pain scale. EENT: No signs and/or symptoms were reported regarding the EENT system. Neuro: Level of Consciousness is awake, alert, obeys commands, Oriented to person, place, time, situation. Cardiovascular: Capillary refill < 3 seconds Patient's skin is warm and dry. Respiratory: Airway is patent Respiratory effort is even, unlabored. GI: Abdomen is flat, non-distended. : No signs and/or symptoms were reported regarding the genitourinary system. Derm: No signs and/or symptoms reported regarding the dermatologic system. Musculoskeletal: No signs and/or symptoms reported regarding the musculoskeletal system. RN HYPERBARIC: 10:30 LMP N/A - Hysterectomy ld1 Historical: - Allergies: 10:30 No Known Allergies; ld1 - Home Meds: 10:30 None [Active]; ld1 - PMHx: 10:30 Endometrosis; Hypothyroidism; ld1 - PSHx: 10:30 Appendectomy; hysterectomy; ld1 - Immunization history:: Adult Immunizations up to date, Client reports having NOT received the Covid vaccine. - Social history:: Smoking status: Patient denies any tobacco usage or history of. Patient/guardian denies using alcohol. Screenin:31 Abuse screen: Denies threats or abuse. Denies injuries from another. Nutritional ld1 screening: No deficits noted. Tuberculosis screening: No symptoms or risk factors identified. Fall Risk None identified. Assessment: 10:31 Reassessment: See triage assessment. ld1 11:53 Reassessment: Patient appears in no apparent distress at this time. Patient and/or ld1 family updated on plan of care and expected duration. Pain level reassessed. Patient is alert, oriented x 3, equal unlabored respirations, skin warm/dry/pink. Vital Signs: 10:29 BP 122 / 79; Pulse 63; Resp 18; Temp 97.3(TE); Pulse Ox 100% on R/A; Weight 70.31 kg; ld1 Height 5 ft. 9 in. (175.26 cm); Pain 7/10; 11:53 BP 126 / 77; Pulse 65; Resp 15; Pulse Ox 100% on R/A; ld1 10:29 Body Mass Index 22.89 (70.31 kg, 175.26 cm) ld1 ED Course: 10:20 Patient arrived in ED. rg4 10:22 Warren Pablo PA is PHCP. cp 10:22 Nick Mosqueda MD is Attending Physician. cp 10:29 Claudia Montoya, JHOAN is Primary Nurse. ld1 10:30 Triage completed. ld1 10:30 Arm band placed on right wrist. ld1 10:31 Patient has correct armband on for positive identification. Placed in gown. Bed in low ld1 position. Call light in reach. Side rails up X2. Pulse ox on. NIBP on. Door closed. Noise minimized. 10:31 No provider procedures requiring assistance completed. Patient did not have IV access ld1 during this emergency room visit. 11:04 XRAY Foot LEFT 3 View In Process Unspecified. EDMS 11:32 Pool Hernandez MD is Referral Physician. cp Administered Medications: 11:33 Drug: Tylenol 1000 mg Route: PO; ld1 11:33 Drug: Ibuprofen 800 mg Route: PO; ld1 Medication: 10:31 VIS not applicable for this client. ld1 Outcome: 11:33 Discharge ordered by . mary 11:53 Discharged to home ambulatory. ld1 11:53 Condition: stable 11:53 Discharge instructions given to patient, Instructed on discharge instructions, follow up and referral plans. Demonstrated understanding of instructions, follow-up care. 11:54 Patient left the ED. ld1 Signatures: Dispatcher [employer] EDMS Warren Pablo PA PA cp Garcia, Rubi rg4 Claudia Montoya, RN RN ld1
[2022-03-21 12:02] VITALS: BP 126/77; O2SAT 100
[2022-03-21 12:06] VITALS: TEMP 97.3
== END 2022-03-21 11:54 | disposition home or self-care (01) ==
LOC: ER 10:19
DX: S92.512A Displaced fracture of proximal phalanx of left lesser toe(s), initial encounter for closed fracture (principal)
CPT/HCPCS: 99283

== ENCOUNTER 2022-09-26 09:55 | Emergency (ER) | payer OTHER, SELFPAY ==
--- OUTSIDE RECORDS SUMMARY | 2022-09-26 09:57 | XMS REPORT | Clinical Summary ---
:1975 Author Organization [facility] MD Chakraborty [facility] Address [address] [place] [address] Care Team Providers Name Role Phone Unavailable Primary Care Provider Unavailable Allergies Not on File Medications Not on file Active Problems Not on file Social History Tobacco Use Types Packs/Day Years Used Date Smoking Tobacco: Never Assessed Sex Assigned at Date Recorded Not on file Job Start Date Occupation Industry Not on file Not on file Not on file Last Filed Vital Signs Not on file Plan of Treatment Not on file Results Not on fileafter 09/26/2021 Insurance Payer Benefit Plan / Subscriber ID Effective Dates Phone Addre ss Type Group [employer] Effective for all [address] Other [place] [address]
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
--- NOTE | 2022-09-26 10:49 | ER ---
Nurse's Notes [facility] Name: Vickie Davila Age: 47 yrs Sex: Female : 1975 Arrival Date: 09/26/2022 Time: 10:00 Bed Waiting Private MD: Diagnosis: Pain in left knee Presentation: 09/26 10:05 Chief complaint: EMS states: FLARE OF CHRONIC LEFT KNEE PAIN. Coronavirus screen: At this time, the client does not indicate any symptoms associated with coronavirus-19. Ebola Screen: No symptoms or risks identified at this time. Initial Sepsis Screen: Does the patient meet any 2 criteria? No. Patient's initial sepsis screen is negative. Does the patient have a suspected source of infection? No. Patient's initial sepsis screen is negative. Risk Assessment: Do you want to hurt yourself or someone else? Patient reports no desire to harm self or others. Onset of symptoms is unknown. 10:05 Method Of Arrival: EMS: [facility] bp 10:05 Acuity: CRISTAL 5 bp Historical: - Allergies: 10:06 No Known Allergies; bp - PMHx: 10:06 Hypothyroidism; Endometrosis; bp - PSHx: 10:06 hysterectomy; Appendectomy; bp - Immunization history:: Adult Immunizations up to date. - Social history:: Smoking status: Patient denies any tobacco usage or history of. Assessment: 11:22 Reassessment: Patient left prior to being assessed by this nurse. Discharged by SHIREEN Maza. Vital Signs: 10:05 BP 109 / 71; Pulse 70; Resp 16; Temp 98; Pulse Ox 100% ; bp ED Course: 10:00 Patient arrived in ED. [id number] 10:06 Triage completed. bp 10:27 Shaunna Hyde FNP-C [facility] kb 10:27 Saundra Bills MD is Attending Physician. kb Administered Medications: No medications were administered Outcome: 10:48 Discharge ordered by . kb 11:22 Patient left the ED. Signatures: Shaunna Hyde FNP-C FNP-Ckb Smirch, Shelby, RN RN ss Rogelio Luong RN RN Kiya Espinal [id number]
--- NOTE | 2022-09-26 10:49 | EDPHYS ---
Physician Documentation [facility] Name: Vickie Davila Age: 47 yrs Sex: Female : 1975 Arrival Date: 09/26/2022 Time: 10:00 Bed Waiting Private MD: ED Physician Saundra Bills HPI: 09/26 10:44 This 47 yrs old Female presents to ER via EMS with complaints of Leg Pain. kb 10:44 The patient presents with pain. The complaints affect the left knee. Treatment prior to kb arrival includes: no previous treatment. Severity of symptoms: At their worst the symptoms were moderate, in the emergency department the symptoms are unchanged. The patient has experienced similar episodes in the past, chronically. The patient has not recently seen a physician. Pt presents with chronic left knee pain. . Historical: - Allergies: 10:06 No Known Allergies; bp - PMHx: 10:06 Hypothyroidism; Endometrosis; bp - PSHx: 10:06 hysterectomy; Appendectomy; bp - Immunization history:: Adult Immunizations up to date. - Social history:: Smoking status: Patient denies any tobacco usage or history of. ROS: 10:44 Constitutional: Negative for fever, chills, and weight loss. kb 10:44 MS/extremity: Positive for pain, of the left knee. Exam: 10:44 Constitutional: This is a well developed, well nourished patient who is awake, alert, kb and in no acute distress. Head/Face: Normocephalic, atraumatic. ENT: Moist Mucous membranes Respiratory: Respirations even and unlabored. No increased work of breathing. Talking in full sentences Neuro: Awake and alert, GCS 15, oriented to person, place, time, and situation. Moves all extremities. Normal gait. Psych: Awake, alert, with orientation to person, place and time. Behavior, mood, and affect are within normal limits. Vital Signs: 10:05 BP 109 / 71; Pulse 70; Resp 16; Temp 98; Pulse Ox 100% ; bp MDM: 10:37 Patient medically screened. kb 10:44 Data reviewed: vital signs, nurses notes. Data interpreted: Pulse oximetry: on room air kb is 100 %. Interpretation: normal. Counseling: I had a detailed discussion with the patient and/or guardian regarding: the historical points, exam findings, and any diagnostic results supporting the discharge/admit diagnosis, the need for outpatient follow up, a orthopedic surgeon, to return to the emergency department if symptoms worsen or persist or if there are any questions or concerns that arise at home. ED course: Pt called someone to pick her up since we did not have a room available. I spoke with pt and told her we could help get her pain under control even though we did not have an available room for her to go to. Pt elected not to come back inside for treatment. . Administered Medications: No medications were administered Disposition Summary: 09/26/22 10:48 Discharge Ordered Location: Home kb Condition: Stable kb Diagnosis - Pain in left knee kb Followup: kb - With: Emergency Department - When: As needed - Reason: Worsening of condition Followup: kb - With: Private Physician - When: 2 - 3 days - Reason: Recheck today's complaints, Continuance of care, Re-evaluation by your physician Discharge Instructions: - Discharge Summary Sheet kb - Musculoskeletal Pain kb Forms: - Medication Reconciliation Form kb - Thank You Letter kb - Antibiotic Education kb - Prescription Opioid Use kb Addendum: 09/30/2022 12:39 STAFF ATTESTATION STATEMENT: I was immediately available onsite in the emergency s d2 department for consultation in the care of this patient. I did not see or examine this patient. Saundra Bills MD. Signatures: Shaunna Hyde, TESSIE PATEL-Rogelio Durham, RN RN Saundra Galan MD MD sd2
[2022-09-26 12:04] VITALS: BP 109/71; TEMP 98; O2SAT 100
== END 2022-09-26 11:22 | disposition home or self-care (01) ==
LOC: ER 09:55
DX: M25.562 Pain in left knee (principal)
CPT/HCPCS: 99282

== ENCOUNTER 2023-02-05 21:06 | Emergency (ER) | payer OTHER ==
--- OUTSIDE RECORDS SUMMARY | 2023-02-05 21:10 | XMS REPORT | Clinical Summary ---
:1975 Author Organization [facility] MD Chakraborty [facility] Address [address] [place] [address] Care Team Providers Name Role Phone Unavailable [...] Not on file Results Not on fileafter 02/05/2022 Insurance Payer Benefit Plan / Subscriber ID Effective Dates Phone Addre ss Type Group [employer] Effective for all [address] [place] [address]
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
[2023-02-05] MEDS ORDERED: KETOROLAC 30 MG/ML INJ ONE (21:53)
[2023-02-05] MEDS ORDERED: ONDANSETRON 4 MG/2 ML VIAL ONE (21:54)
[2023-02-05] MEDS ORDERED: LIDOCAINE 4% PATCH ONE (22:11)
[2023-02-05 22:18] LABS: Lymphocytes % 44.4 % (15.3-44.8); MCV 89.5 fL (80-100); MPV 8.6 fL (7.6-11.3); RBC Red Blood Cell Count 4.02 M/uL (3.86-4.86)
[2023-02-05 22:33] LABS: Albumin 3.5 g/dL (3.4-5.0); Bilirubin Total 0.4 mg/dL (0.2-1.0); Potassium 3.8 mEq/L (3.5-5.1); Protein, Total 7.1 g/dL (6.4-8.2)
--- NOTE | 2023-02-05 23:30 | EDPHYS ---
Physician Documentation [facility] Name: Vickie Davila Age: 47 yrs Sex: Female : 1975 Arrival Date: 02/05/2023 Time: 21:06 Bed 19 Private MD: ARNAUD Physician Warren Pierson HPI: 02/05 23:16 This 47 yrs old Female presents to ER via EMS with complaints of lower back joseph pain , right to leg. 23:16 The patient presents with pain that is acute, and decreased range of motion. The joseph symptoms are located in the low back, lumbar area and right low back. The pain does not radiate. The problem was sustained when bending over. Onset: The symptoms/episode began/occurred 2 day(s) ago. Modifying factors: The patient symptoms are alleviated by nothing, remaining still, the patient symptoms are aggravated by bending, lifting, movement, standing, walking. Associated signs and symptoms: The patient has no apparent associated signs or symptoms. Severity of symptoms: At their worst the symptoms were moderate, in the emergency department the symptoms are unchanged. The patient has not experienced similar symptoms in the past. Historical: - Allergies: 21:18 No Known Allergies; jb4 - PMHx: 21:18 Endometrosis; Hypothyroidism; jb4 - PSHx: 21:18 Appendectomy; hysterectomy; jb4 - Family history:: not pertinent. ROS: 23:16 Constitutional: Negative for fever, chills, and weight loss, Eyes: Negative for injury, joseph pain, redness, and discharge, ENT: Negative for injury, pain, and discharge, Neck: Negative for injury, pain, and swelling, Cardiovascular: Negative for chest pain, palpitations, and edema, Respiratory: Negative for shortness of breath, cough, wheezing, and pleuritic chest pain, Abdomen/GI: Negative for abdominal pain, nausea, vomiting, diarrhea, and constipation, : Negative for injury, bleeding, discharge, and swelling, MS/Extremity: Negative for injury and deformity, Skin: Negative for injury, rash, and discoloration, Neuro: Negative for headache, weakness, numbness, tingling, and seizure, Psych: Negative for depression, anxiety, suicide ideation, homicidal ideation, and hallucinations, Allergy/Immunology: Negative for hives, rash, and allergies, Endocrine: Negative for neck swelling, polydipsia, polyuria, polyphagia, and marked weight changes, Hematologic/Lymphatic: Negative for swollen nodes, abnormal bleeding, and unusual bruising. 23:16 Back: Positive for decreased range of motion, pain with movement, of the lumbar area, left low back, left mid back, right mid back and right low back. Exam: 23:16 Constitutional: This is a well developed, well nourished patient who is awake, alert, joseph and in no acute distress. Head/Face: Normocephalic, atraumatic. Eyes: Pupils equal round and reactive to light, extra-ocular motions intact. Lids and lashes normal. Conjunctiva and sclera are non-icteric and not injected. Cornea within normal limits. Periorbital areas with no swelling, redness, or edema. ENT: Nares patent. No nasal discharge, no septal abnormalities noted. Tympanic membranes are normal and external auditory canals are clear. Oropharynx with no redness, swelling, or masses, exudates, or evidence of obstruction, uvula midline. Mucous membranes moist. Neck: Trachea midline, no thyromegaly or masses palpated, and no cervical lymphadenopathy. Supple, full range of motion without nuchal rigidity, or vertebral point tenderness. No Meningismus. Chest/axilla: Normal chest wall appearance and motion. Nontender with no deformity. No lesions are appreciated. Cardiovascular: Regular rate and rhythm with a normal S1 and S2. No gallops, murmurs, or rubs. Normal PMI, no JVD. No pulse deficits. Respiratory: Lungs have equal breath sounds bilaterally, clear to auscultation and percussion. No rales, rhonchi or wheezes noted. No increased work of breathing, no retractions or nasal flaring. Abdomen/GI: Soft, non-tender, with normal bowel sounds. No distension or tympany. No guarding or rebound. No evidence of tenderness throughout. Skin: Warm, dry with normal turgor. Normal color with no rashes, no lesions, and no evidence of cellulitis. MS/ Extremity: Pulses equal, no cyanosis. Neurovascular intact. Full, normal range of motion. Neuro: Awake and alert, GCS 15, oriented to person, place, time, and situation. Cranial nerves II-XII grossly intact. Motor strength 5/5 in all extremities. Sensory grossly intact. Cerebellar exam normal. Normal gait. Psych: Awake, alert, with orientation to person, place and time. Behavior, mood, and affect are within normal limits. 23:16 Back: pain, that is mild, that is moderate, ROM is painful, with flexion, with extension, normal spinal alignment noted, CVA tenderness, is absent, vertebral tenderness, is not appreciated, muscle spasm, is appreciated in the left low back, left mid back, right mid back and right low back. Vital Signs: 21:25 BP 103 / 67; Pulse 50; Resp 16; Temp 98.4(TE); Pulse Ox 100% on R/A; Weight 63.5 kg jb4 (R); Height 5 ft. 9 in. (R); Pain 10/10; 23:00 BP 123 / 67; Pulse 50; Resp 16; Pulse Ox 100% on R/A; jb4 21:25 Body Mass Index 20.67 (63.50 kg, 175.26 cm) 4 21:25 Pain Scale: Adult jb4 MDM: 21:36 Patient medically screened. [facility] 23:19 Differential diagnosis: arthritis, strain, fracture, sciatica, contusion, Herniated joseph disc UTI. Data reviewed: vital signs, nurses notes, lab test result(s), radiologic studies, CT scan. Consideration of Admission/Observation Escalation of care including admission/observation considered. I considered the following discharge prescriptions or medication management in the emergency department Medications were administered in the Emergency Department. See MAR. Test considered but Not performed: MRI: no mri ls spine. Care significantly affected by the following chronic conditions: hypothyroid, endometrosis. 02/05 21:38 Order name: CBC with Diff; Complete Time: 23:11 [facility] 02/05 21:38 Order name: Comprehensive Metabolic Panel; Complete Time: 23:11 [facility] 02/05 21:38 Order name: CT Lumbar Spine Wo Con [facility] 02/05 21:45 Order name: IV; Complete Time: 22:09 jb4 Administered Medications: 22:08 Drug: Ketorolac IVP 30 mg Route: IVP; Site: left antecubital; jb4 22:08 Not Given (Patient Refused): Ondansetron IVP 4 mg IVP once; over 2 minutes jb4 22:08 Drug: Lidoderm Topical Patch 5 % (700 mg/patch) 1 patches Route: Topical; Site: jb4 affected area; 23:41 Not Given (Patient Refused): morphine IVP or IV 4 mg IVP once over 4 mins jb4 23:41 Not Given (Patient Refused): Ondansetron IVP 4 mg IVP once; over 2 minutes jb4 23:41 Not Given (Patient Refused): Decadron - Dexamethasone IVP 10 mg IVP once jb4 23:41 Not Given (Patient Refused): Diazepam PO 10 mg PO once jb4 Disposition Summary: 02/05/23 23:29 Discharge Ordered Location: Home [facility] Problem: new joseph Symptoms: have improved joseph Condition: Stable joseph Diagnosis - Sciatica, right side joseph - Low back pain joseph - Strain of muscle, fascia and tendon of lower back joseph Followup: joseph - With: Private Physician - When: 2 - 3 days - Reason: Recheck today's complaints, Continuance of care, Re-evaluation by your physician Followup: joseph - With: - When: 2 - 3 days - Reason: Recheck today's complaints, Re-evaluation by your physician Discharge Instructions: - Discharge Summary Sheet joseph - Acute Back Pain, Adult joseph - Musculoskeletal Pain joseph - Sciatica joseph - Sciatica, [id number] [facility] Forms: - Medication Reconciliation Form [facility] - Thank You Letter [facility] - Antibiotic Education [facility] - Prescription Opioid Use [facility] Prescriptions: - acetaminophen-codeine 300-30 mg Oral tablet - take 2 tablet by ORAL route 4 times per day as needed for pain; 20 tablet; [facility] Refills: 0, Product Selection Permitted - dexamethasone 2 mg Oral tablet - take 1 tablet by ORAL route every 12 hours; 8 tablet; Refills: 0, Product [facility] Selection Permitted - Diclofenac Sodium 75 mg Oral Tablet Sustained Release - take 1 tablet by ORAL route 2 times per day; 30 tablet; Refills: 0, Product [facility] Selection Permitted - Cyclobenzaprine 5 mg Oral Tablet - take 1 tablet by ORAL route 3 times per day As needed; 15 tablet; Refills: 0, [facility] Product Selection Permitted Signatures: Dispatcher [employer] Warren Vallejo MD MD cha Bryson, James, RN RN jb4
--- NOTE | 2023-02-05 23:30 | ER ---
Nurse's Notes [facility] Name: Vickie Davila Age: 47 yrs Sex: Female : 1975 Arrival Date: 02/05/2023 Time: 21:06 Bed 19 Private MD: Diagnosis: Sciatica, right side;Low back pain;Strain of muscle, fascia and tendon of lower back Presentation: 02/05 21:16 Chief complaint: EMS states: Pt reports lower back pain after bending down. Coronavirus jb4 screen: At this time, the client does not indicate any symptoms associated with coronavirus-19. Ebola Screen: No symptoms or risks identified at this time. Initial Sepsis Screen: Does the patient meet any 2 criteria? No. Patient's initial sepsis screen is negative. Does the patient have a suspected source of infection? No. Patient's initial sepsis screen is negative. Risk Assessment: Do you want to hurt yourself or someone else? Patient reports no desire to harm self or others. Onset of symptoms was February 05, 2023. Transition of care: patient was not received from another setting of care. 21:16 Method Of Arrival: EMS: [facility] jb4 21:18 Acuity: CRISTAL 4 jb4 Historical: - Allergies: 21:18 No Known Allergies; jb4 - PMHx: 21:18 Endometrosis; Hypothyroidism; jb4 - PSHx: 21:18 Appendectomy; hysterectomy; jb4 - Family history:: not pertinent. Screenin:25 [facility] ED Fall Risk Assessment (Adult) History of falling in the last 3 months, jb4 including since admission No falls in past 3 months (0 pts) Confusion or Disorientation No (0 pts). Abuse screen: Denies threats or abuse. Nutritional screening: No deficits noted. Tuberculosis screening: No symptoms or risk factors identified. Assessment: 21:25 General: Appears in no apparent distress. comfortable, Behavior is calm, cooperative, jb4 appropriate for age. Pain: Complains of pain in low back area Pain does not radiate. Pain currently is 10 out of 10 on a pain scale. Neuro: Level of Consciousness is awake, alert, obeys commands, Oriented to person, place, time, situation. Cardiovascular: Patient's skin is warm and dry. Respiratory: Airway is patent Respiratory effort is even, unlabored, Respiratory pattern is regular, symmetrical. GI: No signs and/or symptoms were reported involving the gastrointestinal system. : No signs and/or symptoms were reported regarding the genitourinary system. EENT: No signs and/or symptoms were reported regarding the EENT system. Derm: Skin is intact, Skin is pink, warm \T\ dry. Musculoskeletal: Circulation, motion, and sensation intact. Range of motion: intact in all extremities. 22:30 Reassessment: Patient appears in no apparent distress at this time. Patient and/or jb4 family updated on plan of care and expected duration. Pain level reassessed. Patient is alert, oriented x 3, equal unlabored respirations, skin warm/dry/pink. 23:42 Reassessment: Patient appears in no apparent distress at this time. Patient and/or jb4 family updated on plan of care and expected duration. Pain level reassessed. Patient is alert, oriented x 3, equal unlabored respirations, skin warm/dry/pink. Vital Signs: 21:25 BP 103 / 67; Pulse 50; Resp 16; Temp 98.4(TE); Pulse Ox 100% on R/A; Weight 63.5 kg jb4 (R); Height 5 ft. 9 in. (R); Pain 10/10; 23:00 BP 123 / 67; Pulse 50; Resp 16; Pulse Ox 100% on R/A; jb4 21:25 Body Mass Index 20.67 (63.50 kg, 175.26 cm) jb4 21:25 Pain Scale: Adult jb4 ED Course: 21:15 Patient arrived in ED. as6 21:16 Britton Chapman, RN is Primary Nurse. jb4 21:18 Arm band placed on right wrist. jb4 21:19 Triage completed. jb4 21:25 Patient has correct armband on for positive identification. Bed in low position. Call [facility] light in reach. Side rails up X 1. Client placed on continuous cardiac and pulse oximetry monitoring. NIBP monitoring applied. 21:36 Warren Pierson MD is Attending Physician. [facility] 21:55 Initial lab(s) drawn, by me, sent to lab. Inserted saline lock: 20 gauge in left jb4 antecubital area, using aseptic technique. Blood collected. 22:09 Comprehensive Metabolic Panel Sent. jb4 22:09 CBC with Diff Sent. jb4 22:59 CT Lumbar Spine Wo Con In Process Unspecified. EDNJ 23:29 John Velasco MD is Referral Physician. [facility] 23:43 No provider procedures requiring assistance completed. IV discontinued, intact, jb4 bleeding controlled, No redness/swelling at site. Pressure dressing applied. Administered Medications: 22:08 Drug: Ketorolac IVP 30 mg Route: IVP; Site: left antecubital; jb4 22:08 Not Given (Patient Refused): Ondansetron IVP 4 mg IVP once; over 2 minutes jb4 22:08 Drug: Lidoderm Topical Patch 5 % (700 mg/patch) 1 patches Route: Topical; Site: jb4 affected area; 23:41 Not Given (Patient Refused): morphine IVP or IV 4 mg IVP once over 4 mins jb4 23:41 Not Given (Patient Refused): Ondansetron IVP 4 mg IVP once; over 2 minutes jb4 23:41 Not Given (Patient Refused): Decadron - Dexamethasone IVP 10 mg IVP once jb4 23:41 Not Given (Patient Refused): Diazepam PO 10 mg PO once jb4 Medication: 21:25 VIS not applicable for this client. jb4 Outcome: 23:29 Discharge ordered by . [facility] 23:43 Discharged to home ambulatory, with family. jb4 23:43 Condition: stable 23:43 Discharge instructions given to patient, family, Instructed on discharge instructions, follow up and referral plans. no driving heavy equipment, medication usage, Demonstrated understanding of instructions, follow-up care, medications, Prescriptions given X 4. 23:44 Patient left the ED. jb4 Signatures: Dispatcher [employer] EDNJ Warren Pierson MD MD cha Bryson, James, JHOAN RN jb4 Rosalino Lopez RN RN as6
[2023-02-05 23:59] VITALS: O2SAT 100
[2023-02-06 00:25] VITALS: BP 103/67; TEMP 98.4
--- NOTE | 2023-02-06 12:37 | RAD REPORT ---
EXAM DESCRIPTION: CT - Spine Lumbar Wo Con - 02/06/2023 7:04 am RadLex: CT LUMBAR SPINE WITHOUT IV CONTRAST CLINICAL HISTORY: PAIN. COMPARISON: CT of the abdomen and pelvis from October 07, 2018. TECHNIQUE: CT of the lumbar spine was performed without IV contrast. Axial, coronal, and sagittal re constructions were created and sent to PACS. This exam was performed according to our departmental dose-optimization program, which includes autom ated exposure control, adjustment of the mA and/or kV according to patient size and/or use of iterati ve reconstruction technique. FINDINGS: Bones: No acute osseous abnormality identified. Transitional lumbosacral vertebral body de scribed as lumbarization of S1 for this report, with a pseudoarticulation on the left and an osseous fusion on the right. Vertebral body height and alignment is maintained. Mild facet arthrosis in the l ower lumbar spine. T12-L1: No significant central canal or neuroforaminal stenosis identified. L1-L2: Mild circumferential disc bulge. No significant central canal or neuroforaminal stenosis ident ified. L2-L3: Mild circumferential disc bulge. No significant central canal or neuroforaminal stenosis ident ified. L3-L4: Moderate circumferential disc bulge. Mild bilateral neuroforaminal narrowing due to disc mater ial. No significant central canal or neuroforaminal stenosis identified. L4-L5: Prominent circumferential disc bulge. Moderate bilateral neuroforaminal narrowing due to disc material. No significant central canal or neuroforaminal stenosis identified. L5-S1: Prominent circumferential disc bulge. Moderate bilateral neuroforaminal narrowing due to disc material. No significant central canal or neuroforaminal stenosis identified. Paraspinal soft tissues: Small nonobstructive calculus in the superior left kidney. Duplicated left r enal collecting system. IMPRESSION: 1. No acute osseous abnormality identified in the lumbar spine. 2. Degenerative changes, most notable for disc bulges and neuroforaminal narrowing. Electronically signed by: Ivett De Jesus MD 02/05/2023 11:18 PM CDT Due to temporary technical issues with the PACS/Fluency reporting system, reports are being signed by the in house radiologists without review as a courtesy to insure prompt reporting. The interpreting radiologist is fully responsible for the content of the report.
== END 2023-02-05 23:44 | disposition home or self-care (01) ==
LOC: ER 21:06
DX: M54.31 Sciatica, right side (principal); S39.012A Strain of muscle, fascia and tendon of lower back, initial encounter
CPT/HCPCS: 85025; 36415; 80053; 72131; J2001; J2405

== ENCOUNTER → 2023-11-01 | Emergency (ER) | payer OTHER, SELFPAY ==
[~2023-11-01] MED LIST changes: -ACETAMINOPHEN 500 MG TAB ONE; +HYDROMORPHONE HCL 1 MG/ML INJ ONE; +METHYLPREDNISOLONE 125 MG INJ ONE; -NA CHLORIDE 0.9% 1,000 ML ONE; +ONDANSETRON 4 MG/2 ML VIAL ONE
--- OUTSIDE RECORDS SUMMARY | 2023-11-01 06:10 | XMS REPORT | Clinical Summary ---
Author Name Unknown Organization [facility] Address [address] [place] [address] Care Team Providers Care Pathology Laboratory Aides Teacher Name Role Phone Unavailable Primary Care Provider Unavailabl e Social History Tobacco Use Types Packs/Day Years Used Date Smoking Tobacco: Never Assessed Sex and Gender Information Value Date Recorded Sex Assigned at Not on file Gender Identity Not on file Sexual Orientation Not on file Job Start Date Occupation Industry Not on file Not on file Not on file Plan of Treatment Not on file
[2023-11-01 07:19] LABS: SARS-CoV-2 Antigen Rapid Res Negative (Negative)
[2023-11-01 07:50] LABS: Absolute Lymphocytes (CBC) 1.3 K/uL (0.7-4.9); Hematocrit 37.5 % (36.0-45.0); Lymphocytes % 11.4 % (15.3-44.8); MCV 89.6 fL (80-100); MPV 8.5 fL (7.6-11.3); Platelets 249 thou/uL (152-406); RBC Red Blood Cell Count 4.18 M/uL (3.86-4.86)
[2023-11-01 07:58] LABS: Albumin 3.5 g/dL (3.4-5.0); Bilirubin Total 0.8 mg/dL (0.2-1.0); Potassium 4.1 mEq/L (3.5-5.1); Protein, Total 7.5 g/dL (6.4-8.2)
--- NOTE | 2023-11-01 08:09 | RAD REPORT ---
EXAM DESCRIPTION: CT - Head Brain Wo Cont - 11/01/2023 7:49 am CLINICAL HISTORY: HEADACHE Headache, drowsiness COMPARISON: Sinus Wo Cont dated 11/01/2023; Head Brain Wo Cont dated 03/17/2022 TECHNIQUE: All CT scans are performed using dose optimization technique as appropriate and may inclu de automated exposure control or mA/KV adjustment according to patient size. FINDINGS: No intracranial hemorrhage, hydrocephalus or extra-axial fluid collection.No areas of brai n edema or evidence of midline shift. Mild fluid is seen maxillary antrum. The paranasal sinuses and mastoids are otherwise clear. The calv arium is intact. IMPRESSION: No acute intracranial abnormality.
--- NOTE | 2023-11-01 08:11 | RAD REPORT ---
EXAM DESCRIPTION: CT - Sinus Wo Cont - 11/01/2023 7:49 am CLINICAL HISTORY: FACIAL PAIN Pain and swelling COMPARISON: Head Brain Wo Cont dated 03/17/2022; Head Brain Wo Cont dated 07/11/2021; Head Brain Wo C ont dated 11/01/2023 TECHNIQUE: Axial 1 mm thick images of the paranasal sinuses were obtained. Coronal and sagittal refo rmatted images were reviewed. All CT scans are performed using dose optimization technique as appropriate and may include automated exposure control or mA/KV adjustment according to patient size. FINDINGS: Mild air-fluid level is seen in the left maxillary antrum suggesting acute sinusitis. The paranasal sinuses and mastoids are otherwise clear. Mucus is present in both ostiomeatal units. The frontal recesses are patent. No significant skull-base finding. IMPRESSION: Mild air-fluid level is seen left maxillary antrum likely indicating acute sinusitis. N o bone destruction is seen. The remainder of the paranasal sinuses and mastoids are clear. Both ostiomeatal units appear partially occluded by mucous.
--- NOTE | 2023-11-01 08:16 | ER ---
Nurse's Notes [facility] Name: Vickie Davila Age: 48 yrs Sex: Female : 1975 Arrival Date: 11/01/2023 Time: 06:07 Bed 7 Private MD: Jamie Jonas Diagnosis: Acute sinusitis, headache Presentation: 11/01 06:33 Chief complaint: Patient states: "I started having a headache and sinus pressure jw7 yesterday and it hasn't gotten any better with medication". Coronavirus screen: Client denies travel out of the [place] in the last 14 days. Ebola Screen: No symptoms or risks identified at this time. Initial Sepsis Screen: Does the patient meet any 2 criteria? No. Patient's initial sepsis screen is negative. Does the patient have a suspected source of infection? No. Patient's initial sepsis screen is negative. Risk Assessment: Do you want to hurt yourself or someone else? Patient reports no desire to harm self or others. Onset of symptoms was October 31, 2023. Care prior to arrival: Medication(s) given:. 06:33 Method Of Arrival: Ambulatory 7 06:33 Acuity: CRISTAL 4 jw7 Triage Assessment: 06:35 Headache History: The patient has had previous headaches and this one is different than jw7 previous episodes. General: Appears in no apparent distress. uncomfortable, Behavior is calm, cooperative. Pain: Complains of pain in Head Pain does not radiate. Pain currently is 10 out of 10 on a pain scale. Quality of pain is described as pressure, throbbing, Pain began 1 day ago. Is continuous, Alleviated by medications, Also complains of photophobia. EENT: No deficits noted. No signs and/or symptoms were reported regarding the EENT system. Neuro: Level of Consciousness is awake, alert, obeys commands, Oriented to person, place, time, situation. Cardiovascular: Capillary refill < 3 seconds Patient's skin is warm and dry. Respiratory: Airway is patent Trachea midline Respiratory effort is even, unlabored, Respiratory pattern is regular, symmetrical. GI: Abdomen is flat, non-distended. : No deficits noted. No signs and/or symptoms were reported regarding the genitourinary system. Derm: Skin is intact, is healthy with good turgor, Skin is dry, Skin is normal, Skin temperature is warm. Musculoskeletal: Circulation, motion, and sensation intact. Range of motion: intact in all extremities. Historical: - Allergies: 06:35 No Known Allergies; jw7 - Home Meds: 06:35 levothyroxine oral [Active]; jw7 - PMHx: 06:35 Endometrosis; Hypothyroidism; jw7 - PSHx: 06:35 Appendectomy; hysterectomy; jw7 - Immunization history:: Adult Immunizations up to date, Client reports having NOT received the Covid vaccine. Flu vaccine is not up to date. - Social history:: Smoking status: Patient denies any tobacco usage or history of. Patient/guardian denies using alcohol, street drugs. Screenin:35 [facility] ED Fall Risk Assessment (Adult) History of falling in the last 3 months, km8 including since admission No falls in past 3 months (0 pts) Confusion or Disorientation No (0 pts) Intoxicated or Sedated No (0 pts) Impaired Gait No (0 pts) Mobility Assist Device Used No (0 pt) Altered Elimination No (0 pt) Score/Fall Risk Level 0 - 2 = Low Risk Oriented to surroundings, Maintained a safe environment, Educated pt \\T\\ family on fall prevention, incl call for assistance when getting out of bed, Assessed \\T\\ reinforced patient's understanding of fall precautions. Abuse screen: Denies threats or abuse. Denies injuries from another. Nutritional screening: No deficits noted. Tuberculosis screening: No symptoms or risk factors identified. Assessment: 06:35 Reassessment: Patient appears in no apparent distress at this time. No changes from km8 previously documented assessment. Patient and/or family updated on plan of care and expected duration. Pain level reassessed. Patient is alert, oriented x 3, equal unlabored respirations, skin warm/dry/pink. General: Appears in no apparent distress. comfortable, Behavior is calm, cooperative, appropriate for age. Neuro: Level of Consciousness is awake, alert, obeys commands, Oriented to person, place, time, situation. Cardiovascular: Denies chest pain, shortness of breath. Respiratory: Airway is patent Respiratory effort is even, unlabored, Respiratory pattern is regular, symmetrical. 07:42 Reassessment: Pt refused pain medication, stated "I do not want a narcotic.". ld1 08:23 Reassessment: Patient appears in no apparent distress at this time. No changes from ld1 previously documented assessment. Patient and/or family updated on plan of care and expected duration. Pain level reassessed. Patient is alert, oriented x 3, equal unlabored respirations, skin warm/dry/pink. Vital Signs: 06:33 BP 120 / 86; Pulse 77; Resp 18 S; Temp 98.5(O); Pulse Ox 100% on R/A; Weight 63.5 kg; jw7 Height 5 ft. 9 in. ; Pain 10/10; 07:42 BP 127 / 75; Pulse 69; Resp 18; Pulse Ox 100% on R/A; Pain 8/10; ld1 06:33 Body Mass Index 20.67 (63.50 kg, 175.26 cm) jw7 06:33 Pain Scale: Adult jw7 07:42 Pain Scale: Adult ld1 Sarah Coma Score: 06:35 Eye Response: spontaneous(4). Motor Response: obeys commands(6). Verbal Response: km8 oriented(5). Total: 15. ED Course: 06:13 Patient arrived in ED. gm2 06:14 Jamie Jonas MD is Private Physician. gm2 06:22 Eren Solitario RN is Primary Nurse. rv 06:35 Triage completed. jw7 06:35 Arm band placed on. jw7 06:35 Patient has correct armband on for positive identification. Bed in low position. Call km8 light in reach. Side rails up X2. Pulse ox on. NIBP on. 06:35 No provider procedures requiring assistance completed. Patient maintains SpO2 km8 saturation greater than 95% on room air. 07:00 Dalia Davis MD is Attending Physician. sp3 07:51 CT Head Brain wo Cont In Process Unspecified. EDMS 07:51 CT Sinus Wo Cont In Process Unspecified. EDMS 08:24 IV discontinued, intact, bleeding controlled, No redness/swelling at site. ld1 Administered Medications: 07:41 Drug: Ondansetron IVP 4 mg IVP once; over 2 minutes Route: IVP; Site: left antecubital; ld1 07:41 Not Given (Patient Refused): hydromorphone1 mg IVP once ld1 07:41 Drug: MethylPrednisoLONE IVP 125 mg IVP once Route: IVP; Site: left antecubital; ld1 Medication: 06:35 VIS not applicable for this client. km8 Outcome: 08:15 Discharge ordered by . sp3 08:23 Discharged to home ambulatory, ld1 08:23 Condition: stable 08:23 Discharge instructions given to patient, Instructed on discharge instructions, follow up and referral plans. medication usage, Demonstrated understanding of instructions, follow-up care, medications, 08:24 Patient left the ED. ld1 Signatures: Dispatcher [employer] EDEren Wiggins, RN RN Claudia Joseph RN RN ld1 Dalia Davis MD MD sp3 Katia Berg RN RN [id number] Rita Walton 2 Angela Bourne RN RN km8
--- NOTE | 2023-11-01 08:16 | EDPHYS ---
Physician Documentation [facility] Name: Vickie Davila Age: 48 yrs Sex: Female : 1975 Arrival Date: 11/01/2023 Time: 06:07 Bed 7 Private MD: Jamie Jonas ED Physician Dalia Davis HPI: 11/01 07:25 This 48 yrs old Female presents to ER via Ambulatory with complaints of Fever, Flu sp3 Symptoms, Headache. 07:25 48-year-old female with history of hypothyroidism, endometriosis presents to the ED sp3 with chief complaint headache, sinus pain and pressure, flu symptoms and subjective fever. Symptoms have been going on for 2 days. Patient states she has not had symptoms like this ever in the past. She denies any neck pain, neck stiffness, chest pain, shortness of breath, back pain, abdominal pain, nausea, vomiting, diarrhea, rash, syncope, near syncope, other focal neurological deficit, known sick contacts, travel history, or any other signs or symptoms on ROS at this time.. Historical: - Allergies: 06:35 No Known Allergies; jw7 - Home Meds: 06:35 levothyroxine oral [Active]; jw7 - PMHx: 06:35 Endometrosis; Hypothyroidism; jw7 - PSHx: 06:35 Appendectomy; hysterectomy; jw7 - Immunization history:: Adult Immunizations up to date, Client reports having NOT received the Covid vaccine. Flu vaccine is not up to date. - Social history:: Smoking status: Patient denies any tobacco usage or history of. Patient/guardian denies using alcohol, street drugs. ROS: 07:25 Constitutional: Negative for fever, chills, and weight loss, Eyes: Negative for injury, sp3 pain, redness, and discharge, Neck: Negative for injury, pain, and swelling, Cardiovascular: Negative for chest pain, palpitations, and edema, Respiratory: Negative for shortness of breath, cough, wheezing, and pleuritic chest pain, Abdomen/GI: Negative for abdominal pain, nausea, vomiting, diarrhea, and constipation, Back: Negative for injury and pain, MS/Extremity: Negative for injury and deformity, Skin: Negative for injury, rash, and discoloration, Neuro: Negative for headache, weakness, numbness, tingling, and seizure, Psych: Negative for depression, anxiety, suicide ideation, homicidal ideation, and hallucinations, Allergy/Immunology: Negative for hives, rash, and allergies, Endocrine: Negative for neck swelling, polydipsia, polyuria, polyphagia, and marked weight changes, 07:25 All other systems are negative, Exam: 07:26 Constitutional: This is a well developed, well nourished patient who is awake, alert, sp3 and in no acute distress. Head/Face: Normocephalic, atraumatic. Eyes: Pupils equal round and reactive to light, extra-ocular motions intact. Lids and lashes normal. Conjunctiva and sclera are non-icteric and not injected. Cornea within normal limits. Periorbital areas with no swelling, redness, or edema. Neck: Trachea midline, no thyromegaly or masses palpated, and no cervical lymphadenopathy. Supple, full range of motion without nuchal rigidity, or vertebral point tenderness. No Meningismus. Chest/axilla: Normal chest wall appearance and motion. Nontender with no deformity. No lesions are appreciated. Cardiovascular: Regular rate and rhythm with a normal S1 and S2. No gallops, murmurs, or rubs. Normal PMI, no JVD. No pulse deficits. Respiratory: Lungs have equal breath sounds bilaterally, clear to auscultation and percussion. No rales, rhonchi or wheezes noted. No increased work of breathing, no retractions or nasal flaring. Abdomen/GI: Soft, non-tender, with normal bowel sounds. No distension or tympany. No guarding or rebound. No evidence of tenderness throughout. Back: No spinal tenderness. No costovertebral tenderness. Full range of motion. Skin: Warm, dry with normal turgor. Normal color with no rashes, no lesions, and no evidence of cellulitis. MS/ Extremity: Pulses equal, no cyanosis. Neurovascular intact. Full, normal range of motion. Neuro: Awake and alert, GCS 15, oriented to person, place, time, and situation. Cranial nerves II-XII grossly intact. Motor strength 5/5 in all extremities. Sensory grossly intact. Cerebellar exam normal. Normal gait. Psych: Awake, alert, with orientation to person, place and time. Behavior, mood, and affect are within normal limits. 07:26 ENT: Patient is noticeable congestion in the upper airways. Positive pain to percussion over frontal sinuses and maxillary sinuses. Airways are patent.. Vital Signs: 06:33 BP 120 / 86; Pulse 77; Resp 18 S; Temp 98.5(O); Pulse Ox 100% on R/A; Weight 63.5 kg; jw7 Height 5 ft. 9 in. ; Pain 10/10; 07:42 BP 127 / 75; Pulse 69; Resp 18; Pulse Ox 100% on R/A; Pain 8/10; ld1 06:33 Body Mass Index 20.67 (63.50 kg, 175.26 cm) jw7 06:33 Pain Scale: Adult jw7 07:42 Pain Scale: Adult ld1 Houston Coma Score: 06:35 Eye Response: spontaneous(4). Motor Response: obeys commands(6). Verbal Response: km8 oriented(5). Total: 15. MDM: 07:00 Patient medically screened. sp3 07:26 Data reviewed: vital signs, nurses notes, lab test result(s), radiologic studies. ED sp3 course: 48-year-old female with significant facial pain and headache. Differential diagnosis includes sinusitis, headache, migraine headache, other intracranial process, upper respiratory infection, influenza, COVID-19, among others. Workup will include CT scan of the head, CT scan of sinuses, routine labs and swabs and medications will include Dilaudid and Zofran IV for symptomatic control as well as Solu-Medrol 125 mg for anti-inflammatory effect. Disposition pending workup and patient course with probable discharge on any indicated medications.. 08:14 ED course: CT demonstrates acute sinusitis and left maxillary sinus. Remainder of exam sp3 is negative including CT head and laboratory values. Swabs are negative as well.. 02 06:40 Order name: SARS RAPID; Complete Time: 07:58 km8 11/01 06:40 Order name: Influenza Screen (a \T\ B); Complete Time: 07:58 km8 11/01 07:24 Order name: CBC with Diff; Complete Time: 07:58 sp3 11/01 07:24 Order name: CMP; Complete Time: 07:58 sp3 11/01 07:24 Order name: CT Head Brain wo Cont; Complete Time: 08:13 sp3 11/01 07:24 Order name: CT Sinus Wo Cont; Complete Time: 08:13 sp3 11/01 07:24 Order name: IV Saline Lock; Complete Time: 07:36 sp3 11/01 07:24 Order name: Labs collected and sent; Complete Time: 07:36 sp3 Administered Medications: 07:41 Drug: Ondansetron IVP 4 mg IVP once; over 2 minutes Route: IVP; Site: left antecubital; ld1 07:41 Not Given (Patient Refused): hydromorphone1 mg IVP once ld1 07:41 Drug: MethylPrednisoLONE IVP 125 mg IVP once Route: IVP; Site: left antecubital; ld1 Disposition Summary: 11/01/23 08:15 Discharge Ordered Notes: Location: Home sp3 Condition: Stable sp3 Diagnosis - Acute sinusitis, headache sp3 Followup: sp3 - With: Private Physician - When: Upon discharge from the Emergency Department - Reason: Continuance of care Discharge Instructions: - Discharge Summary Sheet sp3 - Sinusitis, Adult sp3 Forms: - Medication Reconciliation Form sp3 - Thank You Letter sp3 - Antibiotic Education sp3 - Prescription Opioid Use sp3 - Patient Portal Instructions sp3 - Leadership Thank You Letter sp3 Prescriptions: - Nasacort 55 mcg Nasal Aerosol, Biggers - spray 1 spray INTRANASAL route daily administer into each nostril; 1 Each; sp3 Refills: 0, Product Selection Permitted - Zithromax Z-Zachariah 250 mg Oral Tablet - take 1 tablet ORAL route as directed for 5 days Day 1 - take two (2) tablets sp3 one time. Day 2, 3, 4 , 5 take one (1) tablet once daily.; 6 tablet; Refills: 0, Product Selection Permitted Signatures: Dispatcher [employer] Claudia Fernandez RN RN ld1 Dalia Davis MD MD sp3 Katia Berg RN RN jw7
[2023-11-01 08:52] VITALS: TEMP 98.5; O2SAT 100
[2023-11-01 09:10] VITALS: BP 127/75
== END ==
LOC: ER 06:07
DX: J01.90 Acute sinusitis, unspecified (principal); Z11.52 Encounter for screening for COVID-19
CPT/HCPCS: 36415; 70450; 70486; 80053; 85025; 87804; 87811; J1170; J2405; J2930

== ENCOUNTER 2024-01-31 16:38 | Emergency (ER) | payer OTHER ==
--- OUTSIDE RECORDS SUMMARY | 2024-01-31 16:41 | XMS REPORT | Clinical Summary ---
Author Name Unknown Organization 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
[2024-01-31] MEDS ORDERED: PHENYLEPHRINE 0.5% NOSE 15ML NAS ONE (17:16)
[2024-01-31] MEDS ORDERED: dexAMETHasone 10 MG/ML VIAL ONE (18:30)
[2024-01-31 19:07] LABS: Specific Gravity > 1.030 (1.005-1.030); Sqamous Epithelial <5 /HPF (None Seen); Urine Bacteria None Seen /HPF (<20); Urine Bilirubin NEGATIVE (Negative); Urine Blood Negative (Negative); Urine Clarity Clear (Clear); Urine Color Yellow (Yellow); Urine Culture Reflex Order NOT NEEDED; Urine Glucose NEGATIVE (Negative); Urine Ketones NEGATIVE (Negative); Urine Micro Reflex YN NO BILL MICROSCOPIC; Urine Mucus Slight /HPF (None Seen); Urine Nitrite NEGATIVE (Negative); Urine Protein TRACE (Negative); Urine RBC <5 /HPF (None Seen); Urine Urobilinogen Normal (Normal); Urine WBC <5 /HPF (<5); Urine pH 5.5 (5.0-7.0)
--- NOTE | 2024-01-31 19:14 | EDPHYS ---
Physician Documentation [facility] Name: Vickie Davila Age: 48 yrs Sex: Female : 1975 Arrival Date: 01/31/2024 Time: 16:38 Bed 15 Private MD: ED Physician Steve Zhu HPI: 01/30 17:08 This 48 yrs old Female presents to ER via Ambulatory with complaints of Urinary Problem.sb4 17:10 patient presents with left nasal congestion and pain. has been trying multiple nasal sb4 sprays without relief, has also been taking amoxicillin from [facility] without improvement. has chronic sinus issues but has not followed up with ENT. additionally reports pain with urination and difficulty urinating. 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 - Infectious Disease History:: Denies. - Social history:: Smoking status: Patient denies any tobacco usage or history of. ROS: 17:10 Constitutional: Negative for fever, chills, and weight loss, sb4 17:10 ENT: Positive for sinus congestion, sinus pain, 17:10 : Positive for small amounts, burning with urination, difficulty urinating, 17:10 All other systems are negative, Exam: 17:10 Constitutional: This is a well developed, well nourished patient who is awake, alert, sb4 and in no acute distress. Head/Face: Normocephalic, atraumatic. Eyes: Extra-ocular motions intact. Periorbital areas with no swelling, redness, or edema. Cardiovascular: Regular rate and rhythm with a normal S1 and S2. Respiratory: Lungs have equal breath sounds bilaterally, clear to auscultation and percussion. No rales, rhonchi or wheezes noted. No increased work of breathing, no retractions or nasal flaring. Abdomen/GI: Soft, non-tender, no distension. Skin: Warm, dry with normal turgor. Normal color with no rashes, no lesions, and no evidence of cellulitis. MS/ Extremity: Pulses equal, no cyanosis. Neurovascular intact. Full, normal range of motion. Vital Signs: 17:00 BP 125 / 94; Pulse 106; Resp 16; Temp 97.6(TE); Pulse Ox 100% on R/A; Pain 6/10; hb 18:38 BP 110 / 72; Pulse 99; Resp 16 S; Pulse Ox 100% on R/A; kc6 19:18 BP 120 / 75; Pulse 70; Resp 16; Pulse Ox 100% on R/A; me1 17:00 Pain Scale: Adult hb MDM: 16:42 Patient medically screened. rn 19:14 Data reviewed: vital signs, nurses notes, lab test result(s), and as a result, I will sb4 discharge patient. Counseling: I had a detailed discussion with the patient and/or guardian regarding the historical points, exam findings, and any diagnostic results supporting the discharge/admit diagnosis, lab results, the need for outpatient follow up, an ENT specialist, to return to the emergency department if symptoms worsen or persist or if there are any questions or concerns that arise at home. 01/30 17:06 Order name: TERI; Complete Time: 19:10 sb4 Administered Medications: 17:21 Drug: Phenylephrine Intranasal [place] 0.5 % 2 sprays Intranasal in left nare once Route: kc6 Intranasal; Site: left nare; 18:28 Follow up: Response: No adverse reaction kc6 18:34 Drug: Dexamethasone IM 10 mg IM once Route: IM; Site: left gluteus; kc6 19:08 Follow up: Response: No adverse reaction kc6 Disposition Summary: 01/31/24 19:14 Discharge Ordered Notes: Location: Home sb4 Problem: an ongoing problem sb4 Symptoms: are unchanged sb4 Condition: Stable sb4 Diagnosis - Chronic sinusitis, unspecified sb4 Followup: sb4 - With: Leah Hayes MD - When: As needed - Reason: Recheck today's complaints, Re-evaluation by your physician Discharge Instructions: - Discharge Summary Sheet sb4 - Sinusitis, Adult sb4 Forms: - Patient Portal Instructions sb4 - Leadership Thank You Letter sb4 Prescriptions: - Augmentin 875-125 mg Oral Tablet - take 1 tablet ORAL route every 12 hours for 10 days; 20 tablet; Refills: 0, sb4 Product Selection Permitted Addendum: 02/01/2024 21:54 Co-signature as Attending Physician, Steve KRAMER I reviewed the patient's care r n provided by the Advanced Practice Provider and agree with the diagnosis and treatment plan. Signatures: Dispatcher [employer] EDSteve Rojas MD MD rn Baxter, Heather RN RN Maria Elena Casey RN RN kc6 Lina Crenshaw, DAIANA AHMADI sb4
--- NOTE | 2024-01-31 19:14 | ER ---
Nurse's Notes [facility] Name: Vickie Davila Age: 48 yrs Sex: Female : 1975 Arrival Date: 01/31/2024 Time: 16:38 Bed 15 Private MD: Diagnosis: Chronic sinusitis, unspecified Presentation: 01/30 17:00 Chief complaint: Sinus pain and congestion x 2 weeks, dysuria x 1 week. Coronavirus hb screen: At this time, the client does not indicate any symptoms associated with coronavirus-19. Ebola Screen: No symptoms or risks identified at this time. Initial Sepsis Screen: Does the patient meet any 2 criteria? No. Patient's initial sepsis screen is negative. Does the patient have a suspected source of infection? No. Patient's initial sepsis screen is negative. Risk Assessment: Do you want to hurt yourself or someone else? Patient reports no desire to harm self or others. Onset of symptoms was January 17, 2024. 17:00 Method Of Arrival: Ambulatory hb 17:00 Acuity: CRISTAL 4 hb Triage Assessment: 17:01 General: Appears in no apparent distress. uncomfortable, Behavior is anxious. Pain: hb Unable to use pain scale. FLACC scale score is 6 out of 10. EENT: Reports sinus congestion and pain. Neuro: Level of Consciousness is awake, alert, obeys commands, Oriented to person, place, time, situation. Cardiovascular: Patient's skin is warm and dry. Respiratory: Respiratory effort is even, unlabored, Respiratory pattern is regular, symmetrical. 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 - Infectious Disease History:: Denies. - Social history:: Smoking status: Patient denies any tobacco usage or history of. Screenin:15 [facility] ED Fall Risk Assessment (Adult) History of falling in the last 3 months, kc6 including since admission No falls in past 3 months (0 pts) Confusion or Disorientation No (0 pts) Intoxicated or Sedated No (0 pts) Impaired Gait No (0 pts) Mobility Assist Device Used No (0 pt) Altered Elimination No (0 pt) Score/Fall Risk Level 0 - 2 = Low Risk. Abuse screen: Denies threats or abuse. Denies injuries from another. Nutritional screening: No deficits noted. Tuberculosis screening: No symptoms or risk factors identified. Assessment: 17:15 General: Appears in no apparent distress. comfortable, well groomed, well developed, kc6 Behavior is calm, cooperative, appropriate for age. Neuro: Level of Consciousness is awake, alert, obeys commands, Oriented to person, place, time, situation, Appropriate for age. Cardiovascular: Capillary refill < 3 seconds. Respiratory: Airway is patent Trachea midline Respiratory effort is even, unlabored, Respiratory pattern is regular, symmetrical. GI: No signs and/or symptoms were reported involving the gastrointestinal system. : Urine is clear, Reports burning with urination. EENT: Reports nasal congestion. Derm: No signs and/or symptoms reported regarding the dermatologic system. Skin is intact, is healthy with good turgor, Skin is pink, warm \T\ dry. Musculoskeletal: No signs and/or symptoms reported regarding the musculoskeletal system. Circulation, motion, and sensation intact. Capillary refill < 3 seconds, Range of motion: intact in all extremities. 18:15 Reassessment: Patient appears in no apparent distress at this time. No changes from kc6 previously documented assessment. Patient and/or family updated on plan of care and expected duration. Pain level reassessed. Patient is alert, oriented x 3, equal unlabored respirations, skin warm/dry/pink. Vital Signs: 17:00 BP 125 / 94; Pulse 106; Resp 16; Temp 97.6(TE); Pulse Ox 100% on R/A; Pain 6/10; hb 18:38 BP 110 / 72; Pulse 99; Resp 16 S; Pulse Ox 100% on R/A; kc6 19:18 BP 120 / 75; Pulse 70; Resp 16; Pulse Ox 100% on R/A; me1 17:00 Pain Scale: Adult hb ED Course: 16:40 Patient arrived in ED. ra3 16:42 Steve Zhu MD is Attending Physician. rn 16:51 Lina Crenshaw PA-C is PHCP. sb4 16:56 Valle, Maria Elena, RN is Primary Nurse. kc6 17:01 Triage completed. hb 17:03 Arm band placed on. hb 17:15 Patient has correct armband on for positive identification. Bed in low position. Call kc6 light in reach. Side rails up X 1. Adult w/ patient. Client placed on continuous cardiac and pulse oximetry monitoring. NIBP monitoring applied. 19:07 Report given to Alisha Orozco RN. [facility] 19:13 Leah Hayes MD is Referral Physician. sb4 19:19 No provider procedures requiring assistance completed. Patient did not have IV access me1 during this emergency room visit. 19:20 Provided Education on: POC. Verbalized understanding. . me1 Administered Medications: 17:21 Drug: Phenylephrine Intranasal [place] 0.5 % 2 sprays Intranasal in left nare once Route: kc6 Intranasal; Site: left nare; 18:28 Follow up: Response: No adverse reaction 6 18:34 Drug: Dexamethasone IM 10 mg IM once Route: IM; Site: left gluteus; 6 19:08 Follow up: Response: No adverse reaction [facility] Medication: 19:20 VIS not applicable for this client. me1 Outcome: 19:14 Discharge ordered by . sb4 19:19 Discharged to home ambulatory, with family, me1 19:19 Condition: stable 19:19 Discharge instructions given to patient, family, Instructed on discharge instructions, follow up and referral plans. medication usage, Demonstrated understanding of instructions, follow-up care, medications, Prescriptions given X 1, 19:20 Patient left the ED. me1 Signatures: Steve Zhu MD MD rn Baxter, Heather, RN RN hb Campbell, Kaitlyn, RN RN [facility] Lina Crenshaw, PA-C PA-C [facility] Alisha Orozco RN RN me1 Franci Olvera ra3
[2024-01-31 20:03] VITALS: BP 120/75; TEMP 97.6; O2SAT 100
== END 2024-01-31 19:20 | disposition home or self-care (01) ==
LOC: ER 16:38
DX: J32.9 Chronic sinusitis, unspecified (principal); E03.9 Hypothyroidism, unspecified
CPT/HCPCS: 81001; 96372; 99284; J1100

== ENCOUNTER 2024-10-27 09:10 | Emergency (ER) | payer OTHER ==
--- OUTSIDE RECORDS SUMMARY | 2024-10-27 09:13 | XMS REPORT | Clinical Summary ---
Author Name Unknown Organization [facility] Address [address] [place] [address] Care Team Providers Care Supervisor [employer] Name Role Phone Unavailable Primary Care Provider Unavailabl e Social History Tobacco Use Types Packs/Day Years Used Date Smoking Tobacco: Never Assessed Comments Unknown Sex and Gender Information Value Date Recorded Sex Assigned at Not on file Legal Sex Female 6:22 AM CDT Gender Identity Not on file Sexual Orientation Not on file Plan of Treatment Not on file Insurance [employer]
--- NOTE | 2024-10-27 10:39 | RAD REPORT ---
EXAM: CT sinuses without contrast HISTORY: PAIN COMPARISON: 11/01/2023 TECHNIQUE: Multiple contiguous axial images were obtained and a CT of the face without contrast. Sagi ttal and coronal reformats were performed. Automated exposure control, adjustment of the mA and/or kV according to patient size, and/or iterative reconstruction FINDINGS: No facial fractures are identified. No facial soft tissue swelling is seen. The globes and retrobulbar soft tissues are unremarkable. Air-fluid level in the left maxillary sinus. Mild ethmoid air cell thickening.. Mucosal thickening is present at both infundibula which results in narrowing. Mild leftward nasal septal deviation. The mastoid air cells are well aerated. Visualized intracranial structures are unremarkable. IMPRESSION: Air-fluid level in the left maxillary sinus which could reflect acute sinusitis in the ap propriate clinical setting. The paranasal sinuses are otherwise well aerated.
--- NOTE | 2024-10-27 10:40 | EDPHYS ---
Physician Documentation [facility] Name: Vickie Davila Age: 49 yrs Sex: Female : 1975 Arrival Date: 10/27/2024 Time: 09:10 Bed 9 Private MD: ED Physician Kulwinder Sampson HPI: 10/27 09:45 This 49 yrs old Female presents to ER via Ambulatory with complaints of sinus problem. rt 09:45 Patient was sent by her ENT to the emergency department for CT scan of the sinuses. The rt patient reportedly has had pain, congestion, cough like her sinuses for about 2 weeks. Was prescribed antibiotics today by ENT. Was given a nose spray which she states has somewhat improved her symptoms. She denies other acute complaints at this time, symptoms are moderate in severity, no other aggravating or alleviating factors.. 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 - Infectious Disease History:: Denies. - Social history:: Smoking status: unknown. - Family history:: not pertinent. ROS: 09:45 Constitutional: Negative for fever, chills, and weight loss, Skin: Negative for injury, rt rash, and discoloration, Neuro: Negative for headache, weakness, numbness, tingling, and seizure, 09:45 ENT: Positive for sinus congestion, sinus pain, 09:45 Respiratory: Positive for cough, Negative for shortness of breath, Exam: 09:45 Constitutional: This is a well developed, well nourished patient who is awake, alert, rt and in no acute distress. Chest/axilla: Normal chest wall appearance and motion. Nontender with no deformity. No lesions are appreciated. Cardiovascular: Regular rate and rhythm with a normal S1 and S2. No gallops, murmurs, or rubs. Normal PMI, no JVD. No pulse deficits. Respiratory: Lungs have equal breath sounds bilaterally, clear to auscultation and percussion. No rales, rhonchi or wheezes noted. No increased work of breathing, no retractions or nasal flaring. Skin: Warm, dry with normal turgor. Normal color with no rashes, no lesions, and no evidence of cellulitis. MS/ Extremity: Pulses equal, no cyanosis. Neurovascular intact. Full, normal range of motion. Neuro: Awake and alert, GCS 15, oriented to person, place, time, and situation. Cranial nerves II-XII grossly intact. Motor strength 5/5 in all extremities. Sensory grossly intact. Cerebellar exam normal. Normal gait. 09:45 Head/face: Tenderness to palpation over both maxillary and frontal sinuses. 09:45 ENT: Swollen nasal turbinates, no posterior pharyngeal erythema or exudates, no tonsillar hypertrophy. Vital Signs: 09:28 BP 137 / 98; Pulse 54; Resp 17; Temp 97.7; Pulse Ox 100% ; jl7 10:15 BP 136 / 92; Pulse 58; Resp 16; Pulse Ox 99% ; db MDM: 09:21 Medical Screening Exam initiated rt 12:28 Differential Diagnosis Sinusitis, upper respiratory infection. Data reviewed: vital rt signs, nurses notes, radiologic studies. Independent interpretation of the following test(s) in the Emergency Department CT Scan: My interpretation is Sinusitis dental interpretation of CT scan images. Counseling: I had a detailed discussion with the patient and/or guardian regarding the historical points, exam findings, and any diagnostic results supporting the discharge/admit diagnosis, radiology results, the need for outpatient follow up. 10/27 09:31 Order name: Sinus Wo Cont CT; Complete Time: 10:40 rt Administered Medications: No medications were administered Disposition Summary: 10/27/24 10:39 Discharge Ordered Notes: Location: Home rt Problem: an ongoing problem rt Symptoms: are unchanged rt Condition: Stable rt Diagnosis - Acute recurrent maxillary sinusitis rt Followup: rt - With: Private Physician - When: 2 - 3 days - Reason: Discharge Instructions: - Discharge Summary Sheet rt - Sinusitis, Adult rt Forms: - Medication Reconciliation Form rt - Antibiotic Education rt - Prescription Opioid Use rt - Patient Portal Instructions rt - Leadership Thank You Letter rt Signatures: Dispatcher [employer] Og Arreguin RN RN jl7 Kulwinder Sampson MD MD rt
--- NOTE | 2024-10-27 10:40 | ER ---
Nurse's Notes [facility] Name: Vickie Davila Age: 49 yrs Sex: Female : 1975 Arrival Date: 10/27/2024 Time: 09:10 Bed 9 Private MD: Diagnosis: Acute recurrent maxillary sinusitis Presentation: 10/27 09:28 Chief complaint: Patient states: Sinus congestion x 2 weeks, sent by Dr. Fry. jl7 Coronavirus screen: Client presents with at least one sign or symptom that may indicate coronavirus-19. Ebola Screen: No symptoms or risks identified at this time. Initial Sepsis Screen: Does the patient meet any 2 criteria? No. Patient's initial sepsis screen is negative. Does the patient have a suspected source of infection? No. Patient's initial sepsis screen is negative. Risk Assessment: Do you want to hurt yourself or someone else? Patient reports no desire to harm self or others. Onset of symptoms is unknown. 09:28 Method Of Arrival: Ambulatory [facility] 09:28 Acuity: CRISTAL 4 jl7 Triage Assessment: 09:30 General: Appears in no apparent distress. uncomfortable, Behavior is calm, cooperative. jl7 Pain: Complains of pain in face. 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 - Infectious Disease History:: Denies. - Social history:: Smoking status: unknown. - Family history:: not pertinent. Screenin:37 [facility] ED Fall Risk Assessment (Adult) History of falling in the last 3 months, db including since admission No falls in past 3 months (0 pts) Confusion or Disorientation No (0 pts) Intoxicated or Sedated No (0 pts) Impaired Gait No (0 pts) Mobility Assist Device Used No (0 pt) Altered Elimination No (0 pt) Score/Fall Risk Level 0 - 2 = Low Risk Oriented to surroundings, Maintained a safe environment. Abuse screen: Denies threats or abuse. Denies injuries from another. Nutritional screening: No deficits noted. Tuberculosis screening: No symptoms or risk factors identified. Assessment: 09:37 Reassessment: Patient appears in no apparent distress at this time. Patient and/or db family updated on plan of care and expected duration. Pain level reassessed. Patient is alert, oriented x 3, equal unlabored respirations, skin warm/dry/pink. General: Appears in no apparent distress. comfortable, Behavior is calm, cooperative. 10:54 Reassessment: Patient appears in no apparent distress at this time. Patient and/or db family updated on plan of care and expected duration. Pain level reassessed. Patient is alert, oriented x 3, equal unlabored respirations, skin warm/dry/pink. Vital Signs: 09:28 BP 137 / 98; Pulse 54; Resp 17; Temp 97.7; Pulse Ox 100% ; jl7 10:15 BP 136 / 92; Pulse 58; Resp 16; Pulse Ox 99% ; db ED Course: 09:13 Patient arrived in ED. al6 09:14 Kulwinder Sampson MD is Attending Physician. rt 09:30 Triage completed. jl7 09:30 Arm band placed on right wrist. jl7 09:37 Eugenie Young, RN is Primary Nurse. db 09:37 Patient has correct armband on for positive identification. Call light in reach. Side db rails up X 1. Warm blanket given. 09:[address] In Process Unspecified. EDMS 10:55 Provided Education on: DISCHARGE AND FOLLOWUP. db 10:55 No provider procedures requiring assistance completed. Patient did not have IV access db during this emergency room visit. Administered Medications: No medications were administered Medication: 09:37 VIS not applicable for this client. db Outcome: 10:39 Discharge ordered by . rt 10:55 Discharged to home ambulatory, db 10:55 Condition: stable 10:55 Discharge instructions given to patient, Instructed on discharge instructions, follow up and referral plans. 10:55 Patient left the ED. db Signatures: Dispatcher [employer] EDMS Og Byrnes RN RN jl7 Eugenie Young, JHOAN RN Kulwinder Chiang MD MD rt Angi Hagen al6
[2024-10-27 16:21] VITALS: TEMP 97.7
[2024-10-27 16:22] VITALS: BP 136/92; O2SAT 99
== END 2024-10-27 10:55 | disposition home or self-care (01) ==
LOC: ER 09:10
DX: J01.01 Acute recurrent maxillary sinusitis (principal)
CPT/HCPCS: 70486

== ENCOUNTER 2025-01-25 13:52 | Emergency (ER) | payer OTHER ==
--- OUTSIDE RECORDS SUMMARY | 2025-01-25 13:58 | XMS REPORT | Clinical Summary ---
Author Name Unknown Organization [facility] Address [address] [place] [address] Care Team Providers Care Joint Yarner Name Role Phone Unavailable Primary Care Provider Unavailabl e Social History Tobacco Use Types Packs/Day Years Used Date Smoking Tobacco: Never Assessed Comments Unknown Sex and Gender Information Value Date Recorded Sex Assigned at Not on file Legal Sex Female 6:22 AM CDT Gender Identity Not on file Sexual Orientation Not on file Plan of Treatment Not on file Insurance [employer]
--- NOTE | 2025-01-25 14:24 | RAD REPORT ---
EXAM: Chest Single View HISTORY: 49 years Female CHEST PAIN COMPARISON: 05/08/2022 FINDINGS: LUNGS/PLEURA: The lungs are clear. No pleural effusions or pneumothorax. No pulmonary edema. CARDIAC/MEDIASTINUM: The cardiac silhouette is within normal limits. UPPER ABDOMEN: No significant abnormality. BONES: No acute abnormality. LINES/TUBES/OTHER: N/A IMPRESSION: No evidence of acute cardiopulmonary disease. No significant change from prior.
[2025-01-25 15:01] LABS: Absolute Eosinophils 0.1 K/uL (0-0.5); Absolute Lymphocytes (CBC) 2.3 K/uL (0.7-4.9); Absolute Monocytes 0.5 K/uL (0.1-1.3); Absolute Neutrophil 3.5 K/uL (1.8-8.0); Basophils % 0.7 % (0-1.3); Eosinophils % 1.1 % (0-4.4); Hematocrit 37.3 % (36.0-45.0); Hemoglobin 12.7 g/dL (12.0-15.0); Lymphocytes % 35.9 % (15.3-44.8); MCH 30.6 pg (27.0-35.0); MCHC 34.2 g/dL (32.0-36.0); MCV 89.6 fL (80-100); MPV 9.1 fL (7.6-11.3); Monocytes % 8.3 % (3.3-12.3); Platelets 280 thou/uL (152-406); RBC Red Blood Cell Count 4.16 M/uL (3.86-4.86); Red Cell Distribution Width 13.7 % (12.1-15.2)
[2025-01-25 15:24] LABS: Albumin 3.9 g/dL (3.4-5.0); Anion Gap 7.7 mEq/L (5.0-15.0); Bilirubin Direct 0.2 mg/dL (0-0.2); Bilirubin Indirect, Calculated 0.4 mg/dL (0.2-0.8); Bilirubin Total 0.6 mg/dL (0.2-1.0); Globulin 3.8 g/dL (2.3-3.5); Potassium 3.7 mEq/L (3.5-5.1); Protein, Total 7.7 g/dL (6.4-8.2); Troponin High Sensitivity 3.4 pg/mL (<58.9)
--- NOTE | 2025-01-25 15:39 | RAD REPORT ---
EXAMINATION: US LOWER EXTREMITY VENOUS DOPPLER BILATERAL CLINICAL INDICATION: Female, 49 years old.SWELLING TECHNIQUE: Complete bilateral duplex sonography of the lower extremity veins was performed. The exami nation included compression for vein patency, color Doppler imaging and flow augmentation in response to distal compression of the distal external iliac, common femoral, femoral, popliteal, maxwell diego, tibial and great saphenous veins. [id number]. COMPARISON: No prior exams FINDINGS: Duplex sonography imaging demonstrates all deep examined to be fully compressible with spontaneous, p hasic and augmented flow bilaterally. IMPRESSION: No evidence of deep venous thrombosis seen in either lower extremity.
--- NOTE | 2025-01-25 15:49 | RAD REPORT ---
EXAM: Lower Extremity Arterial Bilat HISTORY: PAIN COMPARISON: None TECHNIQUE: Multiplanar grayscale and color Doppler images were obtained and a bilateral lower extrem ity arterial ultrasound. Spectral analysis of the Doppler waveforms were performed. FINDINGS: Right lower extremity: Common femoral artery: Triphasic Superficial femoral artery: Triphasic Popliteal artery: Triphasic Posterior tibial artery: Triphasic Dorsalis pedis artery: Triphasic Left lower extremity: Common femoral artery: Triphasic Superficial femoral artery: Triphasic Popliteal artery: Triphasic Posterior tibial artery: Triphasic Dorsalis pedis artery: Triphasic IMPRESSION: No significant arterial abnormality of the extremities.
--- NOTE | 2025-01-25 16:15 | RAD REPORT ---
EXAMINATION: CTA CHEST PE CLINICAL INDICATION: Female, 49 years old. CHEST PAIN TECHNIQUE: This examination was performed according to an angiographic protocol with 3D post-processi ng. This involves 3D reconstructions, MIPs, volume rendered images and/or shaded surface rendering. One or more of the following dose reduction techniques were used: Automated exposure control, adjustm ent of the mA and/or kV according to patient size, and/or iterative reconstruction. Unless otherwise specified, incidental findings do not require dedicated imaging follow-up. [id number]. COMPARISON: 10/18/2021 FINDINGS: LOWER NECK: Visualized thyroid gland and soft tissues are normal. MEDIASTINUM AND LYMPH NODES: No mediastinal mass or fluid collection. Normal size mediastinal, hilar, and axillary lymph nodes. THORACIC AORTA: No thoracic aortic aneurysm. PULMONARY ARTERIES: Caliber is within normal limits. No pulmonary emboli identified to the level of t he segmental pulmonary arteries. The subsegmental pulmonary arteries cannot be adequately assessed due to motion/suboptimal contrast opacification. HEART: Normal heart size. No coronary calcifications.No significant pericardial effusion. LUNGS AND AIRWAYS: Airways are clear. No evidence of airspace or interstitial process.No suspicious a nd/or stable pulmonary nodules. PLEURA: No pleural effusions. No pneumothorax. OSSEOUS STRUCTURES AND CHEST WALL: No fracture or suspicious osseous lesions. UPPER ABDOMEN: Nonobstructive left nephrolithiasis. IMPRESSION: Negative for pulmonary embolism to the level of the segmental pulmonary arteries. The subsegmental ve ssels cannot be adequate assessed. The lungs are clear.
[2025-01-25] MEDS ORDERED: DIPHENHYDRAMINE 50 MG/ML VIAL ONE (16:22)
--- NOTE | 2025-01-25 16:28 | ER ---
Nurse's Notes [facility] Name: Vickie Davila Age: 49 yrs Sex: Female : 1975 Arrival Date: 01/25/2025 Time: 13:52 Bed 13 Private MD: Diagnosis: Chest pain, unspecified Presentation: 01/25 14:01 Chief complaint: EMS states: toned out to patient home for chest pain radiating to ld1 back. Coronavirus screen: At this time, the client does not indicate any symptoms associated with coronavirus-19. Ebola Screen: No symptoms or risks identified at this time. Risk Assessment: Do you want to hurt yourself or someone else? Patient reports no desire to harm self or others. Onset of symptoms was January 25, 2025. 14:01 Method Of Arrival: EMS: [facility] ld1 14:01 Acuity: CRISTAL 3 ld1 14:30 Initial Sepsis Screen: Does the patient meet any 2 criteria? No. Patient's initial kj2 sepsis screen is negative. Does the patient have a suspected source of infection? No. Patient's initial sepsis screen is negative. Triage Assessment: 14:02 General: Appears in no apparent distress. comfortable, Behavior is calm, cooperative, ld1 appropriate for age. Pain: Complains of pain in chest Pain radiates to back Pain currently is 8 out of 10 on a pain scale. Quality of pain is described as throbbing, Pain began suddenly, Is continuous. EENT: No signs and/or symptoms were reported regarding the EENT system. Neuro: Level of Consciousness is awake, alert, obeys commands, Oriented to person, place, time, situation. Cardiovascular: Capillary refill < 3 seconds Patient's skin is warm and dry. Rhythm is sinus rhythm. Respiratory: Airway is patent Respiratory effort is even, unlabored. GI: Abdomen is flat, non-distended. : No signs and/or symptoms were reported regarding the genitourinary system. Derm: No signs and/or symptoms reported regarding the dermatologic system. Musculoskeletal: No signs and/or symptoms reported regarding the musculoskeletal system. 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 - Infectious Disease History:: Denies. - Social history:: Smoking status: Patient denies any tobacco usage or history of. - Family history:: not pertinent. - Hospitalizations: : No recent hospitalization is reported. Screenin:03 [facility] ED Fall Risk Assessment (Adult) History of falling in the last 3 months, ld1 including since admission No falls in past 3 months (0 pts) Confusion or Disorientation No (0 pts) Intoxicated or Sedated No (0 pts) Impaired Gait No (0 pts) Mobility Assist Device Used No (0 pt) Altered Elimination No (0 pt) Score/Fall Risk Level 0 - 2 = Low Risk. [facility] ED Fall Risk Assessment (Adult) Score/Fall Risk Level 0 - 2 = Low Risk Oriented to surroundings, Hourly rounding (assess needs \T\ fall precautionary measures) done. Abuse screen: Denies threats or abuse. Denies injuries from another. Nutritional screening: No deficits noted. Tuberculosis screening: No symptoms or risk factors identified. Assessment: 14:03 Reassessment: See triage assessment. ERP at bedside assessing patient. ld1 16:10 Reassessment: pt reports itching as a result of contrast. kj2 16:33 Reassessment: Patient appears in no apparent distress at this time. Patient is alert, kj2 oriented x 3, equal unlabored respirations, skin warm/dry/pink. Vital Signs: 14:01 BP 114 / 81; Pulse 73; Resp 18; Pulse Ox 100% on R/A; Pain 8/10; ld1 14:35 BP 114 / 81; Pulse 68; Resp 18; Temp 98; Pulse Ox 100% ; kj2 16:34 BP 115 / 78; Pulse 54; Resp 20; Temp 98; Pulse Ox 100% ; kj2 14:01 Pain Scale: Adult ld1 ED Course: 13:52 Patient arrived in ED. bd 13:52 Steve Zhu MD is Attending Physician. rn 14:01 Claudia Joseph, JHOAN is Primary Nurse. ld1 14:02 Triage completed. ld1 14:02 Arm band placed on right wrist. ld1 14:03 Patient has correct armband on for positive identification. Placed in gown. Bed in low ld1 position. Call light in reach. Side rails up X2. seater grinder on. Pulse ox on. NIBP on. Door closed. Noise minimized. Warm blanket given. 14:03 No provider procedures requiring assistance completed. Maintain EMS IV. Dressing ld1 intact. Good blood return noted. Site clean \T\ dry. Gauge \T\ site: 20g LAC. 14:20 XRAY Chest (1 view) In Process Unspecified. EDMS 15:23 Extrem Venous W Compression Bert US In Process Unspecified. EDMS 15:24 Lower Extremity Arterial Bilat In Process Unspecified. EDMS 15:58 CT Chest For PE Angio In Process Unspecified. EDMS 16:37 Provided Education on: discharge instructions. kj2 16:37 IV discontinued, intact, bleeding controlled, No redness/swelling at site. Pressure kj2 dressing applied. Administered Medications: 16:32 Not Given (Patient Refused): [id number] mg IVP once kj2 Medication: 14:03 VIS not applicable for this client. ld1 Outcome: 16:28 Discharge ordered by . rn 16:36 Discharged to home ambulatory, kj2 16:36 Condition: stable 16:36 Discharge instructions given to patient, Instructed on discharge instructions, follow up and referral plans. Demonstrated understanding of instructions, follow-up care, 16:47 Patient left the ED. kj2 Signatures: Dispatcher [employer] EDMS iMca Barrera Roman, MD MD rn Sims, Lauren, RN RN ld1 Annabella Gonzales RN RN kj2 Corrections: (The following items were deleted from the chart) 14:56 14:28 In radiology for Lower Extremity Arterial Bilat+US.RAD.BRZ. EDMS EDMS
--- NOTE | 2025-01-25 16:28 | EDPHYS ---
Physician Documentation [facility] Name: Vickie Davila Age: 49 yrs Sex: Female : 1975 Arrival Date: 01/25/2025 Time: 13:52 Bed 13 Private MD: ED Physician Steve Zhu HPI: 01/25 14:17 This 49 yrs old Female presents to ER via EMS with complaints of Chest Pain, Back Pain. rn 14:17 The patient or guardian reports chest pain that is located primarily in the anterior rn chest wall, left. Onset: 1 week(s) ago. The pain radiates to left back. The chest pain is described as sharp. Modifying factors: The symptoms are alleviated by nothing. the symptoms are aggravated by deep breath. Severity of pain: At its worst the pain was moderate in the emergency department the pain is unchanged. The patient has not experienced similar symptoms in the past. Patient reports left-sided chest pain, sharp, radiates to the left scapular region. Intermittent and lasts 5 minutes or so. Worse with deep inspiration. No hemoptysis. No history of DVT or PE. No abdominal pain. No vomiting. No trauma. Denies any cardiac history in the past. Also reports intermittent swelling lately to bilateral lower extremities. No known liver or kidney problems.. 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 - Infectious Disease History:: Denies. - Social history:: Smoking status: Patient denies any tobacco usage or history of. - Family history:: not pertinent. - Hospitalizations: : No recent hospitalization is reported. ROS: 14:17 Constitutional: Negative for fever, chills, and weight loss, Cardiovascular: Negative rn for palpitations, and edema Respiratory: Negative for shortness of breath, cough, wheezing, and pleuritic chest pain, Abdomen/GI: Negative for abdominal pain, nausea, vomiting, diarrhea, and constipation, Back: Negative for injury MS/Extremity: Negative for injury and deformity, Skin: Negative for injury, rash, and discoloration, Neuro: Negative for headache, weakness, numbness, tingling, and seizure, Exam: 14:17 Constitutional: This is a well developed, well nourished patient who is awake, alert, rn and in no acute distress. Cardiovascular: Regular rate and rhythm. No pulse deficits. No murmur. Respiratory: No increased work of breathing, no retractions or nasal flaring. Abdomen/GI: Soft, non-tender Back: No focal tenderness or masses. No discoloration. MS/ Extremity: Pulses equal, no cyanosis. Neurovascular intact. Full, normal range of motion. Equal circumference. Neuro: Awake and alert, GCS 15 14:37 ECG was reviewed by the Attending Physician. rn Vital Signs: 14:01 BP 114 / 81; Pulse 73; Resp 18; Pulse Ox 100% on R/A; Pain 8/10; ld1 14:35 BP 114 / 81; Pulse 68; Resp 18; Temp 98; Pulse Ox 100% ; kj2 16:34 BP 115 / 78; Pulse 54; Resp 20; Temp 98; Pulse Ox 100% ; kj2 14:01 Pain Scale: Adult ld1 MDM: 13:52 Medical Screening Exam initiated rn 16:26 Differential diagnosis: acute myocardial infarction, acute pericarditis. rn 16:26 Data reviewed: vital signs, nurses notes, lab test result(s), radiologic studies, CT rn scan, plain films. Consideration of Admission/Observation Escalation of care including admission/observation considered. Counseling: I had a detailed discussion with the patient and/or guardian regarding the historical points, exam findings, and any diagnostic results supporting the discharge/admit diagnosis, lab results, radiology results. Special discussion: Based on the history and exam findings, there is no indication for further emergent testing or inpatient evaluation. I discussed with the patient/guardian the need to see the automotive manufacturer for further evaluation of the symptoms. ED course: No acute findings and workup today. Troponin negative. CT PE protocol negative. ECG without ischemia. Offered admission for cardiac evaluation and stress test, patient declines. Patient chooses to work this up as an outpatient. She states she will return if anything worsens or changes. Understands risks of leaving without admission. Patient seems thankful and happy that we did not find any acute problems at this time.. 01/25 14:09 Order name: Basic Metabolic Panel; Complete Time: 15:53 rn 01/25 14:09 Order name: CBC with Diff; Complete Time: 15:08 rn 01/25 14:09 Order name: LFT's; Complete Time: 15:53 rn 01/25 14:09 Order name: NT PRO-BNP; Complete Time: 15:53 rn 01/25 14:09 Order name: Troponin HS; Complete Time: 15:53 rn 01/25 14:09 Order name: XRAY Chest (1 view); Complete Time: 14:37 rn 01/25 14:09 Order name: CT Chest For PE Angio; Complete Time: 16:17 rn 01/25 14:09 Order name: Extrem Venous W Compression Bert US; Complete Time: 15:53 rn 01/25 14:57 Order name: Lower Extremity Arterial Bilat; Complete Time: 15:53 EDMS 01/25 14:09 Order name: Cardiac monitoring; Complete Time: 14:16 rn 01/25 14:09 Order name: EKG - Nurse/Tech; Complete Time: 14:16 rn 01/25 14:09 Order name: IV Saline Lock; Complete Time: 14:16 rn 01/25 14:09 Order name: Labs collected and sent; Complete Time: 14:16 rn 01/25 14:09 Order name: O2 Per Protocol; Complete Time: 14:16 rn 01/25 14:09 Order name: O2 Sat Monitoring; Complete Time: 14:16 rn EC:37 Rate is 65 beats/min. Rhythm is regular. QRS [place] is Normal. [place] interval is normal. QRS rn interval is normal. QT interval is normal. No Q waves. T waves are Normal. No ST changes noted. Clinical impression: NSR w/ Non-specific ST/T Changes. Interpreted by me. Reviewed by me. Administered Medications: 16:32 Not Given (Patient Refused): [id number] mg IVP once kj2 Disposition Summary: 01/25/25 16:28 Discharge Ordered Notes: Location: Home rn Problem: an ongoing problem rn Symptoms: have improved rn Condition: Stable rn Diagnosis - Chest pain, unspecified rn Followup: rn - With: Private Physician - When: As needed - Reason: Recheck today's complaints, Re-evaluation by your physician Discharge Instructions: - Discharge Summary Sheet rn - Nonspecific Chest Pain, Adult rn Forms: - Medication Reconciliation Form rn - Antibiotic rn recovery - Prescription Opioid Use rn - Patient Portal Instructions rn - Leadership Thank You Letter rn Signatures: Dispatcher [employer] EDMS Steve Zhu MD MD rn Claudia Joseph RN RN ld1 Annabella Gonzales RN kj2 Corrections: (The following items were deleted from the chart) 14:10 14:10 BASIC METABOLIC PANEL+C.LAB.BRZ ordered. EDMS EDMS 14:10 14:10 CBC+H.LAB.BRZ ordered. EDMS EDMS 14:10 14:10 HEPATIC FUNCTION+C.LAB.BRZ ordered. EDMS EDMS 14:10 14:10 PROBNP+C.LAB.BRZ ordered. EDMS EDMS 14:10 14:10 Troponin High Sensitivity+C.LAB.BRZ ordered. EDMS EDMS 14:10 14:10 Chest For PE Angio+CT.RAD.BRZ ordered. EDMS EDMS 14:10 14:10 Extrem Venous W Compression Bert+US.RAD.BRZ ordered. EDMS EDMS 14:56 14:10 Lower Extremity Arterial Bilat+US.RAD.BRZ ordered. EDMS EDMS
[2025-01-26 06:16] VITALS: O2SAT 100
[2025-01-26 06:17] VITALS: TEMP 98
[2025-01-26 06:18] VITALS: BP 115/78
--- NOTE | 2025-01-26 12:35 | EKG ---
Test Date: 2025-01-25 Test Time: 14:08:30 Director Fraud: Dl ALEXANDER MEASUREMENT RESULTS: Intervals: Rate: 65 MI: 180 QRSD: 88 QT: 400 QTc: 416 [place]: P: 106 MI: 180 QRS: 114 T: 132 INTERPRETIVE STATEMENTS: Suspect arm lead reversal, interpretation assumes no reversal Normal sinus rhythm with sinus arrhythmia Left posterior fascicular block Abnormal ECG Compared to ECG 03/17/2022 19:56:24 Left posterior fascicular block now present Sinus bradycardia no longer present Electronically Signed On 01-26-25 12:35:07 CDT by Ivan Barros
== END 2025-01-25 16:47 | disposition home or self-care (01) ==
LOC: ER 13:52
DX: R07.9 Chest pain, unspecified (principal)
CPT/HCPCS: 85025; 80048; 36415; 80076; 84484; 83880; 71275; 71045; 93925; 93970; Q9967; 93005; J1200

== ENCOUNTER 2025-05-10 15:47 | Emergency (ER) | payer OTHER ==
--- OUTSIDE RECORDS SUMMARY | 2025-05-10 15:50 | XMS REPORT | Clinical Summary ---
Author Name Unknown Organization [facility] Address [address] [place] [address] Care Team Providers Care Blender Snuff Name Role Phone Unavailable Primary Care Provider Unavailabl e Social History Tobacco Use Types Packs/Day Years Used Date Smoking Tobacco: Never Assessed Comments Unknown Sex and Gender Information Value Date Recorded Sex Assigned at Not on file Legal Sex Female 6:22 AM CDT Gender Identity Not on file Sexual Orientation Not on file Plan of Treatment Not on file Insurance [employer]
[2025-05-10] MEDS ORDERED: ONDANSETRON 4 MG/2 ML VIAL ONE (16:23)
[2025-05-10] MEDS ORDERED: MORPHINE 4 MG/ML SYR ONE (16:23)
[2025-05-10] MEDS ORDERED: NA CHLORIDE 0.9% 1,000 ML ONE (16:24)
[2025-05-10 16:51] LABS: Absolute Lymphocytes (CBC) 1.4 K/uL (0.7-4.9); Hematocrit 37.4 % (36.0-45.0); Hemoglobin 12.6 g/dL (12.0-15.0); MCH 30.5 pg (27.0-35.0); MCHC 33.8 g/dL (32.0-36.0); MCV 90.2 fL (80-100); MPV 8.3 fL (7.6-11.3); Nucleated RBC Absolute Count 0.0 (0-0); Nucleated Red Blood Cells % 0.0 % (0-0); RBC Red Blood Cell Count 4.14 M/uL (3.86-4.86); White Blood Count 8.70 thou/uL (4.3-10.9)
[2025-05-10 17:13] LABS: ALT/SGPT 26.0 U/L (13-56); Albumin 3.3 g/dL (3.4-5.0); Albumin/Globulin Ratio 1.0 (1.1-1.8); Alkaline Phosphatase 62.0 U/L (45-117); Anion Gap 8.6 mEq/L (5.0-15.0); BUN Blood Urea Nitrogen 16.0 mg/dL (7-18); Globulin 3.3 g/dL (2.3-3.5); Glucose Level 73.0 mg/dL (74-106); Lipase 35.0 U/L (13-75); Troponin High Sensitivity 3.3 pg/mL (<58.9)
[2025-05-10 17:14] LABS: AST/SGOT 16.0 U/L (15-37); Magnesium 2.2 mg/dL (1.6-2.4); Potassium 3.6 mEq/L (3.5-5.1)
[2025-05-10] MEDS ORDERED: Ringers Lactate 1,000 ML IV ONE (17:47)
--- NOTE | 2025-05-10 17:55 | EDPHYS ---
Physician Documentation [facility] Name: Vickie Davila Age: 50 yrs Sex: Female : 1975 Arrival Date: 05/10/2025 Time: 15:47 Bed 14 Private MD: ED Physician Dalia Davis HPI: 05/10 16:06 This 50 yrs old Female presents to ER via EMS with complaints of Heat Exposure. sp3 16:06 50-year-old female with history of endometriosis, hypothyroidism that presents after sp3 being outside for 2 to 3 hours cutting grass by EMS for chief complaint generalized weakness, heat exhaustion and syncope with mild headache. Patient's urine output has been decreased despite drinking orange juice. No water hydration or electrolytes reported has been taken. She denies any other symptoms including head trauma, fever, neck pain, chest pain, shortness of breath, abdominal pain, vomiting, diarrhea, full syncope, decrease in perspiration, or any other signs or symptoms on ROS at this time. Patient states she takes HRT.. FURNACE HAND: 19:23 unknown ss12 Historical: - Allergies: 15:59 No Known Allergies; db - PMHx: 15:59 Endometrosis; Hypothyroidism; db - PSHx: 15:59 Appendectomy; hysterectomy; db - Immunization history:: Adult Immunizations unknown. - Infectious Disease History:: Denies. - Social history:: Smoking status: Patient denies any tobacco usage or history of. ROS: 16:07 Eyes: Negative for injury, pain, redness, and discharge, ENT: Negative for injury, sp3 pain, and discharge, Neck: Negative for injury, pain, and swelling, Cardiovascular: Negative for chest pain, palpitations, and edema, Respiratory: Negative for shortness of breath, cough, wheezing, and pleuritic chest pain, Abdomen/GI: Negative for abdominal pain, nausea, vomiting, diarrhea, and constipation, Back: Negative for injury and pain, MS/Extremity: Negative for injury and deformity, Skin: Negative for injury, rash, and discoloration, Neuro: Negative for headache, weakness, numbness, tingling, and seizure, Psych: Negative for depression, anxiety, suicide ideation, homicidal ideation, and hallucinations, Allergy/Immunology: Negative for hives, rash, and allergies, Endocrine: Negative for neck swelling, polydipsia, polyuria, polyphagia, and marked weight changes, Hematologic/Lymphatic: Negative for swollen nodes, abnormal bleeding, and unusual bruising, 16:07 All other systems are negative, Exam: 16:08 Constitutional: This is a well developed, well nourished patient who is awake, alert, sp3 and in no acute distress. Head/Face: Normocephalic, atraumatic. Eyes: Pupils equal round and reactive to light, extra-ocular motions intact. Lids and lashes normal. Conjunctiva and sclera are non-icteric and not injected. Cornea within normal limits. Periorbital areas with no swelling, redness, or edema. ENT: Nares patent. No nasal discharge, no septal abnormalities noted. External auditory canals are clear. Oropharynx with no redness, swelling, or masses, exudates, or evidence of obstruction, uvula midline. Mucous membranes moist. Neck: Trachea midline, no thyromegaly or masses palpated, and no cervical lymphadenopathy. Supple, full range of motion without nuchal rigidity, or vertebral point tenderness. No Meningismus. Chest/axilla: Normal chest wall appearance and motion. Nontender with no deformity. No lesions are appreciated. Cardiovascular: Regular rate and rhythm with a normal S1 and S2. No gallops, murmurs, or rubs. Normal PMI, no JVD. No pulse deficits. Respiratory: Lungs have equal breath sounds bilaterally, clear to auscultation and percussion. No rales, rhonchi or wheezes noted. No increased work of breathing, no retractions or nasal flaring. Abdomen/GI: Soft, non-tender, with normal bowel sounds. No distension or tympany. No guarding or rebound. No evidence of tenderness throughout. Back: No spinal tenderness. No costovertebral tenderness. Full range of motion. Skin: Warm, dry with normal turgor. Normal color with no rashes, no lesions, and no evidence of cellulitis. MS/ Extremity: Pulses equal, no cyanosis. Neurovascular intact. Full, normal range of motion. Neuro: Awake and alert, GCS 15, oriented to person, place, time, and situation. Cranial nerves II-XII grossly intact. Motor strength 5/5 in all extremities. Sensory grossly intact. Cerebellar exam normal. Normal gait. Psych: Awake, alert, with orientation to person, place and time. Behavior, mood, and affect are within normal limits. 18:01 ECG was reviewed by the Attending Physician. EKG demonstrates normal sinus rhythm at 70 sp3 bpm with first-degree AV block with parable 210 ms, normal QRS, normal axis and normal ST/T-segment's without evidence of acute ischemia. Vital Signs: 16:08 BP 99 / 62; Pulse 70; Resp 14; Temp 98; Pulse Ox 100% ; Weight 67.13 kg; Height 5 ft. 9 db in. ; 17:00 BP 102 / 68; Pulse 75; Resp 15; Pulse Ox 100% ; db 18:00 BP 98 / 68; Pulse 71; Resp 14; Pulse Ox 100% ; db 16:08 Body Mass Index 21.86 (67.13 kg, 175.26 cm) db MDM: 15:51 Medical Screening Exam initiated sp3 16:09 Data reviewed: vital signs, nurses notes, lab test result(s). sp3 16:09 ED course: 50-year-old female with PMH above now with near syncope/exhaustion/weakness sp3 with mild headache. Differential diagnosis includes heat exhaustion, electrolyte abnormality, dehydration, hypovolemia, among others. I am not highly suspicious of ACS, PE, TIA/CVA spectrum, sepsis, shock or any other critical process. Workup will include general labs, EKG, CK, troponin, lactate, and IV fluids coupled with pain and nausea control. Vital signs normal and patient is in no acute distress. Disposition pending workup and patient course.. 17:54 ED course: Lactic acid mildly elevated. Remainder labs without significant abnormality. sp3 I discussed all this with the patient and counseled her on proper hydration. We will safely discharge her after lactated Ringer's is complete.. 05/10 15:53 Order name: CBC with Diff; Complete Time: 17:30 sp3 05/10 15:53 Order name: CMP; Complete Time: 17:30 sp3 05/10 15:53 Order name: Lipase; Complete Time: 17:30 sp3 05/10 15:53 Order name: Magnesium; Complete Time: 17:30 sp3 05/10 15:53 Order name: CK; Complete Time: 17:30 sp3 05/10 15:53 Order name: Troponin High Sensitivity; Complete Time: 17:30 sp3 05/10 15:53 Order name: Lactate w/ 2H reflex if indic.; Complete Time: 17:30 sp3 05/10 17:19 Order name: Ghost Lactate-NO COLLECT Timer EDAR 05/10 15:53 Order name: IV Saline Lock; Complete Time: 16:51 sp3 05/10 15:53 Order name: Labs collected and sent; Complete Time: 16:51 sp3 05/10 16:09 Order name: EKG - Nurse/Tech; Complete Time: 17:45 sp3 Administered Medications: 16:30 Drug: NS 0.9% IV 1000 ml IV at 1 bolus Per protocol; to be given as a bolus over 60 db minutes Route: IV; Rate: 1 bolus; Site: left hand; 18:07 Follow up: Response: No adverse reaction; IV Status: Completed infusion; IV Intake: db 1000ml 16:51 Not Given (Patient Refused): ondansetron 4 mg IVP once; over 2 minutes db 16:51 Not Given (Patient Refused): morphineor iv 4 mg IVP once over 4 mins db 17:45 Drug: Ringers - Lactated Ringers Solution IV 1000 ml IV at bolus bolus; to be given as db a bolus over 30 minutes Route: IV; Rate: bolus; Site: left hand; 19:24 Follow up: IV Status: Completed infusion; IV Intake: 1000ml ss12 Disposition Summary: 05/10/25 17:54 Discharge Ordered Notes: Location: Home sp3 Condition: Stable sp3 Diagnosis - Dehydration, heat exhaustion, lactic acidosis sp3 Followup: sp3 - With: Private Physician - When: Upon discharge from the Emergency Department - Reason: Continuance of care Discharge Instructions: - Discharge Summary Sheet sp3 - Heat Exhaustion sp3 - Preventing Heat Exhaustion, Adult sp3 Forms: - Medication Reconciliation Form sp3 - Antibiotic Education sp3 - Prescription Opioid Use sp3 - Patient Portal Instructions sp3 - Leadership Thank You Letter sp3 Signatures: Dispatcher [employer] Dalia Orellana MD MD sp3 Eugenie Young, RN RN db Eliecer Gonzáles RN ss12
--- NOTE | 2025-05-10 17:55 | ER ---
Nurse's Notes [facility] Name: Vickie Davila Age: 50 yrs Sex: Female : 1975 Arrival Date: 05/10/2025 Time: 15:47 Bed 14 Private MD: Diagnosis: Dehydration, heat exhaustion, lactic acidosis Presentation: 05/10 15:57 Chief complaint: EMS states: MOWING LAWN TODAY FELT DIZZY, HEADACHE, TRIED JUICE AND db FOOD STILL NOT BETTER. EMS GAVE NS BOLUS. Coronavirus screen: Client denies travel out of the [place] in the last 14 days. At this time, the client does not indicate any symptoms associated with coronavirus-19. Ebola Screen: Patient negative for fever greater than or equal to 101.5 degrees Fahrenheit, and additional compatible Ebola Virus Disease symptoms Patient denies exposure to infectious person. Patient denies travel to an Ebola-affected area in the 21 days before illness onset. No symptoms or risks identified at this time. Initial Sepsis Screen: Does the patient meet any 2 criteria? No. Patient's initial sepsis screen is negative. Does the patient have a suspected source of infection? No. Patient's initial sepsis screen is negative. Risk Assessment: Do you want to hurt yourself or someone else? Patient reports no desire to harm self or others. Onset of symptoms was May 10, 2025. Care prior to arrival: Medication(s) given: Normal saline infusion, 300 ML IV initiated. 22 GA, in the left hand, Glucose check: 201. 15:57 Method Of Arrival: EMS: [facility] db 15:57 Acuity: CRISTAL 3 db Triage Assessment: 15:59 General: Appears in no apparent distress. comfortable, Behavior is calm, cooperative. db Pain: Denies pain. 15:59 Neuro: Level of Consciousness is awake, alert, obeys commands, Oriented to person, db place, time, situation. Respiratory: Airway is patent Respiratory effort is even, unlabored, Respiratory pattern is regular, symmetrical. Derm: Reports FEELING HOT. JAVASCRIPT UI DEVELOPER: 19:23 unknown ss12 Historical: - Allergies: 15:59 No Known Allergies; db - PMHx: 15:59 Endometrosis; Hypothyroidism; db - PSHx: 15:59 Appendectomy; hysterectomy; db - Immunization history:: Adult Immunizations unknown. - Infectious Disease History:: Denies. - Social history:: Smoking status: Patient denies any tobacco usage or history of. Screenin:08 [facility] ED Fall Risk Assessment (Adult) History of falling in the last 3 months, db including since admission No falls in past 3 months (0 pts) Confusion or Disorientation No (0 pts) Intoxicated or Sedated No (0 pts) Impaired Gait No (0 pts) Mobility Assist Device Used No (0 pt) Altered Elimination No (0 pt) Score/Fall Risk Level 0 - 2 = Low Risk Oriented to surroundings, Maintained a safe environment. Abuse screen: Denies threats or abuse. Denies injuries from another. Nutritional screening: No deficits noted. Tuberculosis screening: No symptoms or risk factors identified. Assessment: 16:00 Reassessment: SEE TRIAGE FOR INITIAL ASSESSMENT. db 17:00 Reassessment: Patient appears in no apparent distress at this time. Patient and/or db family updated on plan of care and expected duration. Pain level reassessed. Patient is alert, oriented x 3, equal unlabored respirations, skin warm/dry/pink. General: Appears in no apparent distress. comfortable, Behavior is calm, cooperative. Neuro: Level of Consciousness is awake, alert, obeys commands, Oriented to person, place, time, situation. Respiratory: Airway is patent Respiratory effort is even, unlabored, Respiratory pattern is regular, symmetrical. 18:04 Reassessment: DC PENDING FLUID COMPLETION. db 18:05 Reassessment: Patient appears in no apparent distress at this time. Patient and/or db family updated on plan of care and expected duration. Pain level reassessed. Patient is alert, oriented x 3, equal unlabored respirations, skin warm/dry/pink. Patient states feeling better. Patient states symptoms have improved. Vital Signs: 16:08 BP 99 / 62; Pulse 70; Resp 14; Temp 98; Pulse Ox 100% ; Weight 67.13 kg; Height 5 ft. 9 db in. ; 17:00 BP 102 / 68; Pulse 75; Resp 15; Pulse Ox 100% ; db 18:00 BP 98 / 68; Pulse 71; Resp 14; Pulse Ox 100% ; db 16:08 Body Mass Index 21.86 (67.13 kg, 175.26 cm) db ED Course: 15:48 Patient arrived in ED. bd 15:51 Dalia Davis MD is Attending Physician. sp3 15:57 Eugenie Young, RN is Primary Nurse. db 15:59 Triage completed. db 15:59 Arm band placed on Patient placed in an exam room. db 16:02 Patient has correct armband on for positive identification. Bed in low position. Call db light in reach. Side rails up X2. Client placed on continuous cardiac and pulse oximetry monitoring. NIBP monitoring applied. monitor car operator on. Pulse ox on. NIBP on. Pillow given. 16:02 Maintain EMS IV. Dressing intact. Good blood return noted. Site clean \T\ dry. Gauge \T\ db site: 22 G LEFT HAND. 18:05 Provided Education on: HEAT EXPOSURE AND REHYDRATION WITH HEAT CARE. db 18:05 No provider procedures requiring assistance completed. db 19:23 IV discontinued. ss12 Administered Medications: 16:30 Drug: NS 0.9% IV 1000 ml IV at 1 bolus Per protocol; to be given as a bolus over 60 db minutes Route: IV; Rate: 1 bolus; Site: left hand; 18:07 Follow up: Response: No adverse reaction; IV Status: Completed infusion; IV Intake: db 1000ml 16:51 Not Given (Patient Refused): ondansetron 4 mg IVP once; over 2 minutes db 16:51 Not Given (Patient Refused): morphineor iv 4 mg IVP once over 4 mins db 17:45 Drug: Ringers - Lactated Ringers Solution IV 1000 ml IV at bolus bolus; to be given as db a bolus over 30 minutes Route: IV; Rate: bolus; Site: left hand; 19:24 Follow up: IV Status: Completed infusion; IV Intake: 1000ml ss12 Medication: 16:08 VIS not applicable for this client. db Intake: 18:07 IV: 1000ml; Total: 1000ml. db 19:24 IV: 1000ml; Total: 2000ml. ss12 Outcome: 17:54 Discharge ordered by . sp3 19:23 Discharged to home ambulatory, ss12 19:23 Condition: stable 19:23 Discharge instructions given to patient, family, Instructed on discharge instructions, follow up and referral plans. Demonstrated understanding of instructions, follow-up care, 19:24 Patient left the ED. ss12 Signatures: Mica Barrera Setul, MD MD sp3 Eugenie Young, RN RN db Shamaila, Shamaila, RN RN ss12
[2025-05-10 19:55] VITALS: TEMP 98; O2SAT 100
[2025-05-10 19:59] VITALS: BP 98/68
== END 2025-05-10 19:24 | disposition home or self-care (01) ==
LOC: ER 15:47
DX: T67.5XXA Heat exhaustion, unspecified, initial encounter (principal); E86.0 Dehydration; E87.20 Acidosis, unspecified; E03.9 Hypothyroidism, unspecified
CPT/HCPCS: 36415; 80053; 82550; 83605; 83690; 83735; 84484; 85025; 93005; 96361; 96365; 96366; 99284; J2405; J7030; J7120

== ENCOUNTER 2025-07-09 19:41 | Emergency (ER) | payer OTHER ==
--- OUTSIDE RECORDS SUMMARY | 2025-07-09 19:45 | XMS REPORT | Clinical Summary ---
Author Name Unknown Organization [facility] Address [address] [place] [address] Care Team Providers Care Rejector Name Role Phone Unavailable Primary Care Provider Unavailabl e Social History Tobacco Use Types Packs/Day Years Used Date Smoking Tobacco: Never Assessed Comments Unknown Sex and Gender Information Value Date Recorded Sex Assigned at Not on file Legal Sex Female 6:22 AM CDT Gender Identity Not on file Sexual Orientation Not on file Plan of Treatment Not on file Insurance A[employer] A[employer]
--- NOTE | 2025-07-09 21:07 | ER ---
Nurse's Notes [facility] Name: Vickie Davila Age: 50 yrs Sex: Female : 1975 Arrival Date: 07/09/2025 Time: 19:41 Bed 6 Private MD: Diagnosis: Headache-sp craniectomy, pneumocehalus,mass effect Presentation: 07/09 19:54 Chief complaint: Patient states: LEFT CRANIECTOMY ON FRIDAY SENT HOME ON FRIDAY. C/O dd2 LT SIDED HEAD PAIN UNRELIEVED BY OXYCODONE. Coronavirus screen: At this time, the client does not indicate any symptoms associated with coronavirus-19. Ebola Screen: No symptoms or risks identified at this time. Initial Sepsis Screen: Does the patient meet any 2 criteria? No. Patient's initial sepsis screen is negative. Does the patient have a suspected source of infection? No. Patient's initial sepsis screen is negative. Risk Assessment: Do you want to hurt yourself or someone else? Patient reports no desire to harm self or others. Onset of symptoms was July 09, 2025 at 17:50. 19:54 Method Of Arrival: Wheelchair dd2 19:54 Acuity: CRISTAL 3 dd2 Triage Assessment: 19:57 General: Appears in no apparent distress. uncomfortable, Behavior is cooperative, dd2 appropriate for age, anxious. Pain: Complains of pain in left frontal area, left side of the back of head, left temporal area and left occipital area. Neuro: Reports headache in left. Derm: INCISION LT SCALP. Historical: - Allergies: 19:57 No Known Allergies; dd2 - PMHx: 19:57 Endometrosis; Hypothyroidism; dd2 - PSHx: 19:57 Appendectomy; hysterectomy; LT CRANIECTOMY (hysterectomy); dd2 - Immunization history:: Adult Immunizations up to date. - Infectious Disease History:: Denies. - Social history:: Smoking status: Patient denies any tobacco usage or history of. Screenin:26 [facility] ED Fall Risk Assessment (Adult) History of falling in the last 3 months, cp4 including since admission No falls in past 3 months (0 pts) Confusion or Disorientation No (0 pts) Intoxicated or Sedated No (0 pts) Impaired Gait Yes (1 pt) Mobility Assist Device Used Yes (1 pt) Altered Elimination No (0 pt) Score/Fall Risk Level 0 - 2 = Low Risk Oriented to surroundings, Maintained a safe environment, Assessed \T\ reinforced patient's understanding of fall precautions, Hourly rounding (assess needs \T\ fall precautionary measures) done. Abuse screen: Denies threats or abuse. Denies injuries from another. Nutritional screening: No deficits noted. Tuberculosis screening: No symptoms or risk factors identified. Never had TB. Assessment: 20:10 General: Appears in no apparent distress. Behavior is cooperative. Pain: Complains of kj2 pain in left occipital area and left temporal area and left side of the back of head and left frontal area. Neuro: Level of Consciousness is awake, alert, obeys commands, Oriented to person, place, time, situation. Cardiovascular: Patient's skin is warm and dry. Respiratory: Airway is patent Respiratory effort is even, unlabored. GI: No signs and/or symptoms were reported involving the gastrointestinal system. : No signs and/or symptoms were reported regarding the genitourinary system. 21:10 Reassessment: Patient appears in no apparent distress at this time. Patient is alert, kj2 oriented x 3, equal unlabored respirations, skin warm/dry/pink. 22:10 Reassessment: Patient appears in no apparent distress at this time. Patient is alert, kj2 oriented x 3, equal unlabored respirations, skin warm/dry/pink. 23:01 Reassessment: Patient appears in no apparent distress at this time. Patient is alert, kj2 oriented x 3, equal unlabored respirations, skin warm/dry/pink. 23:02 Reassessment: despite RN education on the purpose and importance of meds kj2 ordered,patient is refusing all meds except morphine for pain. Vital Signs: 19:54 BP 119 / 75; Pulse 68; Resp 16; Temp 98.1; Pulse Ox 100% on R/A; Weight 67 kg; Pain dd2 810; 21:15 BP 102 / 69; Pulse 56; Resp 18; Pulse Ox 99% ; kj2 22:32 BP 100 / 81; Pulse 71; Resp 18; Pulse Ox 99% ; kj2 23:30 BP 105 / 70; Pulse 52; Resp 18; Pulse Ox 98% ; kj2 07/10 00:15 BP 115 / 60; Pulse 53; Resp 18; Temp 98; Pulse Ox 100% ; kj2 07/09 19:54 Pain Scale: Adult dd2 Sarah Coma Score: 07/09 20:57 Eye Response: spontaneous(4). Motor Response: obeys commands(6). Verbal Response: joseph oriented(5). Total: 15. ED Course: 19:43 Patient arrived in ED. mr 19:45 Warren Pierson MD is Attending Physician. joseph 19:57 Triage completed. dd2 19:57 Arm band placed on right ankle. dd2 20:09 Annabella Gonzales, JHOAN is Primary Nurse. kj2 20:57 Head Brain Wo Cont In Process Unspecified. EDMS 21:22 Initiated transfer with Lesvia at [facility]. rv1 21:41 Lesvia with [facility] called back with neurologist but Dr. Pierson was in a procedure, rv1 asked to call back when he was ready. 21:58 Doc to Doc with Neuro at [facility]. rv1 22:25 No provider procedures requiring assistance completed. Inserted saline lock: 20 gauge cp4 in right upper arm, using aseptic technique. Blood collected. Flushed with 10 mL NS. 22:26 Bed in low position. Call light in reach. Side rails up X2. cp4 22:53 Doc to Doc with hospitalist at [facility]. rv1 23:[address] Chinchilla to [facility] Rm [id number]. rv1 10 00:14 Provided Education on: transfer. cp4 00:14 Patient transferred, IV remains in place. cp4 Administered Medications: 07/09 23:00 Not Given (Patient Refused): Decadron - [id number] mg IVP once kj2 23:00 Drug: morphine IVP or IV 4 mg IVP once over 4 mins Route: IVP; Infused Over: 4 mins; kj2 Site: right antecubital; 07/10 00:16 Follow up: Response: Adverse reaction, Physician notified cp4 07/09 23:00 Not Given (Patient Refused): [id number] mg IV at per protocol once kj2 23:00 Not Given (Patient Refused): [id number] mg IVP once; dilute with 10 mL 0.9% NaCl; kj2 give over 2 minutes 23:01 Not Given (Patient Refused): ns 0.9% 500 ml 500 ml IV at 1 bolus once; to be given as a kj2 bolus over 30 minutes 23:01 Not Given (Patient Refused): ns 0.9% 500 ml 500 ml IV at 125 ml/hr once kj2 23:42 Not Given (Patient Refused): ondansetron 8 mg IVP once; over 2 minutes cp4 Medication: 22:26 VIS not applicable for this client. cp4 Outcome: 21:07 ER care complete, transfer ordered by . joseph 07/10 00:14 Transferred by ground EMS to [facility], Transfer form completed. cp4 X-rays sent w/ patient. Condition: stable Instructed on the need for transfer, 00:19 Patient left the ED. kj2 Signatures: Dispatcher [employer] EDMS Warren Pierson MD MD cha Rivera, Mary, Esperanza Ram rv1 Nava Alves cp4 Annabella Gonzales, RN RN kj2 GRZEGORZ QUESADA RN RN dd2
--- NOTE | 2025-07-09 21:07 | EDPHYS ---
Physician Documentation [facility] Name: Vickie Davila Age: 50 yrs Sex: Female : 1975 Arrival Date: 07/09/2025 Time: 19:41 Bed 6 Private MD: Warren Barkley HPI: 07/09 20:55 This 50 yrs old Female presents to ER via Wheelchair with complaints of Post joseph Surgical Pain. 20:55 The patient complains of pain to the left latter-day, right temporal area, right occipital joseph area and right base of the skull. The patient describes the headache as aching, constant. Onset: The symptoms/episode began/occurred 2 day(s) ago. Associated signs and symptoms: The patient has no apparent associated signs or symptoms. Severity of symptoms: At its worst the pain was moderate, in the emergency department the pain is unchanged. Headache History: The patient has had previous headaches and this one is similar to previous episodes. The symptoms are alleviated by nothing. the symptoms are aggravated by nothing. The patient has experienced similar episodes in the past, a few times. Historical: - Allergies: 19:57 No Known Allergies; dd2 - PMHx: 19:57 Endometrosis; Hypothyroidism; dd2 - PSHx: 19:57 Appendectomy; hysterectomy; LT CRANIECTOMY (hysterectomy); dd2 - Immunization history:: Adult Immunizations up to date. - Infectious Disease History:: Denies. - Social history:: Smoking status: Patient denies any tobacco usage or history of. ROS: 20:55 Constitutional: Negative for fever, chills, and weight loss, Eyes: Negative for injury, joseph pain, redness, and discharge, ENT: Negative for injury, pain, and discharge, Neck: Negative for injury, pain, and swelling, Cardiovascular: Negative for chest pain, palpitations, and edema, Respiratory: Negative for shortness of breath, cough, wheezing, and pleuritic chest pain, Abdomen/GI: Negative for abdominal pain, nausea, vomiting, diarrhea, and constipation, Back: Negative for injury and pain, : Negative for injury, bleeding, discharge, and swelling, MS/Extremity: Negative for injury and deformity, Skin: Negative for injury, rash, and discoloration, Psych: Negative for depression, anxiety, suicide ideation, homicidal ideation, and hallucinations, Allergy/Immunology: Negative for hives, rash, and allergies, Endocrine: Negative for neck swelling, polydipsia, polyuria, polyphagia, and marked weight changes, Hematologic/Lymphatic: Negative for swollen nodes, abnormal bleeding, and unusual bruising, 20:55 Neuro: Positive for headache, Exam: 20:55 Constitutional: This is a well developed, well nourished patient who is awake, alert, joseph and in no acute distress. Head/Face: Normocephalic, atraumatic. Eyes: Pupils equal round and reactive to light, extra-ocular motions intact. Lids and lashes normal. Conjunctiva and sclera are non-icteric and not injected. Cornea within normal limits. Periorbital areas with no swelling, redness, or edema. ENT: Nares patent. No nasal discharge, no septal abnormalities noted. Tympanic membranes are normal and external auditory canals are clear. Oropharynx with no redness, swelling, or masses, exudates, or evidence of obstruction, uvula midline. Mucous membranes moist. Neck: Trachea midline, no thyromegaly or masses palpated, and no cervical lymphadenopathy. Supple, full range of motion without nuchal rigidity, or vertebral point tenderness. No Meningismus. Chest/axilla: Normal chest wall appearance and motion. Nontender with no deformity. No lesions are appreciated. Cardiovascular: Regular rate and rhythm with a normal S1 and S2. No gallops, murmurs, or rubs. Normal PMI, no JVD. No pulse deficits. Respiratory: Lungs have equal breath sounds bilaterally, clear to auscultation and percussion. No rales, rhonchi or wheezes noted. No increased work of breathing, no retractions or nasal flaring. Abdomen/GI: Soft, non-tender, with normal bowel sounds. No distension or tympany. No guarding or rebound. No evidence of tenderness throughout. Back: No spinal tenderness. No costovertebral tenderness. Full range of motion. Skin: Warm, dry with normal turgor. Normal color with no rashes, no lesions, and no evidence of cellulitis. MS/ Extremity: Pulses equal, no cyanosis. Neurovascular intact. Full, normal range of motion., bilateral aka Neuro: Awake and alert, GCS 15, oriented to person, place, time, and situation. Cranial nerves II-XII grossly intact. Motor strength 5/5 in all extremities. Sensory grossly intact. Cerebellar exam normal. Normal gait. Psych: Awake, alert, with orientation to person, place and time. Behavior, mood, and affect are within normal limits. Vital Signs: 19:54 BP 119 / 75; Pulse 68; Resp 16; Temp 98.1; Pulse Ox 100% on R/A; Weight 67 kg; Pain dd2 8; 21:15 BP 102 / 69; Pulse 56; Resp 18; Pulse Ox 99% ; kj2 22:32 BP 100 / 81; Pulse 71; Resp 18; Pulse Ox 99% ; kj2 23:30 BP 105 / 70; Pulse 52; Resp 18; Pulse Ox 98% ; kj2 07/10 00:15 BP 115 / 60; Pulse 53; Resp 18; Temp 98; Pulse Ox 100% ; kj2 07/09 19:54 Pain Scale: Adult dd2 [place] Coma Score: 07/09 20:57 Eye Response: spontaneous(4). Motor Response: obeys commands(6). Verbal Response: joseph oriented(5). Total: 15. MDM: 19:45 Medical Screening Exam initiated joseph 20:57 Differential diagnosis: cluster headache, hypertensive headache, hyponatremia, joseph intracerebral hemorrhage, migraine, neoplasm, sinusitis, subarachnoid bleed, subdural hematoma, temporal arteritis, tension headache, traumatic injuries, trigeminal neuralgia, uremia. Data reviewed: vital signs, nurses notes, lab test result(s), radiologic studies, CT scan. Consideration of Admission/Observation Escalation of care including admission/observation considered. I considered the following discharge prescriptions or medication management in the emergency department Medications were administered in the Emergency Department. See MAR. Independent interpretation of the following test(s) in the Emergency Department CT Scan: My interpretation is ct brain without. 07/09 20:21 Order name: CBC with Diff; Complete Time: 22:56 [facility] 07/09 20:21 Order name: CMP; Complete Time: 22:58 [facility] 07/09 20:21 Order name: PT-INR; Complete Time: 22:56 [facility] 07/09 20:21 Order name: UA Rfx [employer] if indicated [facility] 07/09 20:52 Order name: Head Brain Wo Cont; Complete Time: 21:50 EDMS Administered Medications: 23:00 Not Given (Patient Refused): Decadron - [id number] mg IVP once kj2 23:00 Drug: morphine IVP or IV 4 mg IVP once over 4 mins Route: IVP; Infused Over: 4 mins; kj2 Site: right antecubital; 07/10 00:16 Follow up: Response: Adverse reaction, Physician notified cp4 07/09 23:00 Not Given (Patient Refused): [id number] mg IV at per protocol once kj2 23:00 Not Given (Patient Refused): somithqnes65 mg IVP once; dilute with 10 mL 0.9% NaCl; kj2 give over 2 minutes 23:01 Not Given (Patient Refused): ns 0.9% 500 ml 500 ml IV at 1 bolus once; to be given as a kj2 bolus over 30 minutes 23:01 Not Given (Patient Refused): ns 0.9% 500 ml 500 ml IV at 125 ml/hr once kj2 23:42 Not Given (Patient Refused): ondansetron 8 mg IVP once; over 2 minutes cp4 Disposition Summary: 07/09/25 21:07 Transfer Ordered Notes: Transfer Location: [facility] joseph Reason: Higher level of care joseph Condition: Stable joseph Problem: new joseph Symptoms: have improved joseph Accepting Physician: to [facility](07/10/25 00:19) kj2 Diagnosis - Headache - sp craniectomy, pneumocehalus,mass effect(07/09/25 22:01) joseph Forms: - Medication Reconciliation Form joseph - SBAR form joseph Signatures: Dispatcher [employer] EDWarren Meredith MD MD cha Potter, Christina cp4 Annabella Gonzales RN RN kj2 GRZEGORZ QUESADA RN RN dd2 Corrections: (The following items were deleted from the chart) 20:22 20:21 Head Brain Wo Cont+CT.RAD.BRZ ordered. EDMS EDMS 22: 21:07 to [facility] joseph ruiz 22:01 21:07 Headache - sp craniectomy, pneumocehalus [facility] 07/10 00:19 07/09 22:01 to [facility] kj2
--- NOTE | 2025-07-09 21:19 | RAD REPORT ---
EXAM: CT Head Brain Wo Cont HISTORY: post surgical pain COMPARISON: 10/27/[address] TECHNIQUE: Multiple contiguous axial images were obtained for a CT of the brain without contrast. Sag ittal and coronal reformats were performed. One or more of the following dose reduction techniques were used: Automated exposure control, adjus tment of the mA and kV according to patient size, and iterative reconstruction. Unless otherwise specified, incidental findings do not require dedicated imaging follow-up. FINDINGS: Postsurgical changes of left parietal craniotomy. Thin extra-axial mixed density collection underlies the craniotomy measuring 4 mm in thickness. Surgical tract along the left parietal lobe, nearly reaching the ependymal surface. Trace hyperdense asymmetric blood products along the left tentorium b ase, not exceeding 3 mm in thickness. Other minimal extra-axial pneumocephalus tracking along cerebral convexity. Mild mass effect upon the left lateral ventricle. No midline shift. No evidence o f hydrocephalus, intracranial hemorrhage, or territorial infarct. Elsewhere, the brain is normal in morphology. The calvarium is otherwise intact. The visualized paranasal sinuses and mastoid air cells are essenti ally clear. IMPRESSION: Postsurgical changes of recent left parietal craniotomy, with resection cavity in the left parietal l obe. Trace extra-axial collection underlying the craniotomy measuring 4 mm in thickness, and trace blood products along the base of the left tentorial leaflet, not exceeding 3 mm in thickness. Mild mass effect upon the left lateral ventricle without evidence of midline shift or herniation all, probably within the range of expected findings. Please correlate with preoperative imaging appearance if this is feasible.
[2025-07-09] MEDS ORDERED: ONDANSETRON 4 MG/2 ML VIAL ONE (22:33)
[2025-07-09] MEDS ORDERED: FAMOTIDINE 20 MG/2 ML VIAL IV ONE (22:34)
[2025-07-09] MEDS ORDERED: MORPHINE 4 MG/ML SYR ONE (22:34)
[2025-07-09] MEDS ORDERED: NA CHLORIDE 0.9% 0 ML ONE ×3 (22:34→22:36)
[2025-07-09] MEDS ORDERED: LEVETIRACETAM 500 MG/5 ML VIAL IV ONE (22:34)
[2025-07-09 22:35] LABS: Absolute Lymphocytes (CBC) 2.4 K/uL (0.7-4.9); Hematocrit 36.0 % (36.0-45.0); Hemoglobin 12.0 g/dL (12.0-15.0); MCH 30.0 pg (27.0-35.0); MCHC 33.4 g/dL (32.0-36.0); MCV 89.8 fL (80-100); MPV 8.3 fL (7.6-11.3); Nucleated RBC Absolute Count 0.0 (0-0); Nucleated Red Blood Cells % 0.0 % (0-0); RBC Red Blood Cell Count 4.01 M/uL (3.86-4.86); White Blood Count 7.50 thou/uL (4.3-10.9)
[2025-07-09 22:42] LABS: PT Prothrombin Time 12.8 SECONDS (10-13.0); Protime INR 1.14
[2025-07-09 22:55] LABS: ALT/SGPT 19.0 U/L (13-56); Albumin 3.3 g/dL (3.4-5.0); Albumin/Globulin Ratio 0.8 (1.1-1.8); Alkaline Phosphatase 65.0 U/L (45-117); Anion Gap 8.3 mEq/L (5.0-15.0); BUN Blood Urea Nitrogen 10.0 mg/dL (7-18); Globulin 4.3 g/dL (2.3-3.5); Glucose Level 106.0 mg/dL (74-106)
[2025-07-09 22:56] LABS: AST/SGOT 20.0 U/L (15-37); Potassium 4.3 mEq/L (3.5-5.1)
[2025-07-09 23:10] LABS: Urine Culture Reflex Order NOT NEEDED; Urine Microscopic Reflex YN ORDER UMIC
[2025-07-10 01:05] VITALS: BP 115/60; TEMP 98; O2SAT 100
== END 2025-07-10 00:19 | disposition short-term general hospital (02) ==
LOC: ER 19:41
DX: R51.9 Headache, unspecified (principal); G93.89 Other specified disorders of brain; Z98.890 Other specified postprocedural states
CPT/HCPCS: 36415; 70450; 80053; 81001; 85025; 85610; 96374; 99285; J1100; J1953; J2405; J7040

== ENCOUNTER 2025-07-20 18:09 | Emergency (ER) | payer OTHER ==
[2025-07-20] MEDS ORDERED: ONDANSETRON 4 MG/2 ML VIAL ONE (19:07)
[2025-07-20] MEDS ORDERED: LORazepam 2 MG/ML VIAL ONE (19:07)
[2025-07-20] MEDS ORDERED: LEVETIRACETAM 500 MG/5 ML VIAL IV ONE (19:08)
[2025-07-20] MEDS ORDERED: DIPHENHYDRAMINE 50 MG/ML VIAL ONE (19:08)
[2025-07-20] MEDS ORDERED: NA CHLORIDE 0.9% 100 ML ONE (19:08)
[2025-07-20 19:31] LABS: Absolute Lymphocytes (CBC) 2.5 K/uL (0.7-4.9); Hematocrit 33.4 % (36.0-45.0); Hemoglobin 11.6 g/dL (12.0-15.0); MCH 30.7 pg (27.0-35.0); MCHC 34.8 g/dL (32.0-36.0); MCV 88.3 fL (80-100); MPV 7.8 fL (7.6-11.3); Nucleated RBC Absolute Count 0.0 (0-0); Nucleated Red Blood Cells % 0.1 % (0-0); RBC Red Blood Cell Count 3.78 M/uL (3.86-4.86); White Blood Count 8.80 thou/uL (4.3-10.9)
--- NOTE | 2025-07-20 19:53 | RAD REPORT ---
EXAM: CT brain without contrast HISTORY: HEADACHE COMPARISON: 07/09/2025 TECHNIQUE: Multiple contiguous axial images were obtained and a CT of the brain without contrast. Sag ittal and coronal reformats were performed. One or more of the following dose reduction techniques were used: Automated exposure control, adjust ment of the mA and/or kV according to patient size, and/or iterative reconstruction. FINDINGS: No evidence of hydrocephalus, intracranial hemorrhage, or extra-axial fluid collection. Small area of gliosis is seen left parietal region. No evidence of midline shift or areas of brain e claus. Previous left parietal craniotomy. The visualized paranasal sinuses and mastoid air cells are essenti ally clear. IMPRESSION: No evidence of acute intracranial abnormality.
[2025-07-20 19:56] LABS: ALT/SGPT 25.0 U/L (13-56); AST/SGOT 15.0 U/L (15-37); Albumin 3.7 g/dL (3.4-5.0); Albumin/Globulin Ratio 1.1 (1.1-1.8); Alkaline Phosphatase 64.0 U/L (45-117); Anion Gap 9.8 mEq/L (5.0-15.0); BUN Blood Urea Nitrogen 18.0 mg/dL (7-18); Globulin 3.4 g/dL (2.3-3.5); Glucose Level 107.0 mg/dL (74-106); Potassium 3.8 mEq/L (3.5-5.1)
--- NOTE | 2025-07-20 19:59 | EDPHYS ---
Physician Documentation [facility] Name: Vickie Davila Age: 50 yrs Sex: Female : 1975 Arrival Date: 07/20/2025 Time: 18:09 Bed 12 Private MD: ARNAUD Physician Warren Pierson HPI: 07/20 18:58 This 50 yrs old Female presents to ER via EMS with complaints of Headache. joseph 18:58 The patient complains of pain to the forehead. The patient describes the headache as joseph constant. Onset: The symptoms/episode began/occurred 1 day(s) ago. Associated signs and symptoms: Pertinent positives: nausea. Severity of symptoms: At its worst the pain was mild, moderate, in the emergency department the pain has improved, mildly. Headache History: The patient has had previous headaches and this one is similar to previous episodes. The symptoms are alleviated by quiet, remaining still, the symptoms are aggravated by noise, stress. The patient has experienced similar episodes in the past, several times. Historical: - Allergies: 18:17 No Known Allergies; bp - PMHx: 18:17 Endometrosis; Hypothyroidism; BRAIN CANCER; bp - PSHx: 18:17 Appendectomy; hysterectomy; LT CRANIECTOMY (ec); bp - Immunization history:: Adult Immunizations up to date. - Infectious Disease History:: Denies. - Social history:: Smoking status: Patient denies any tobacco usage or history of. - Family history:: not pertinent. ROS: 18:58 Constitutional: Negative for fever, chills, and weight loss, Eyes: Negative for injury, joseph pain, redness, and discharge, ENT: Negative for injury, pain, and discharge, Neck: Negative for injury, pain, and swelling, Cardiovascular: Negative for chest pain, palpitations, and edema, Respiratory: Negative for shortness of breath, cough, wheezing, and pleuritic chest pain, Abdomen/GI: Negative for abdominal pain, nausea, vomiting, diarrhea, and constipation, Back: Negative for injury and pain, : Negative for injury, bleeding, discharge, and swelling, MS/Extremity: Negative for injury and deformity, Skin: Negative for injury, rash, and discoloration, Psych: Negative for depression, anxiety, suicide ideation, homicidal ideation, and hallucinations, Allergy/Immunology: Negative for hives, rash, and allergies, Endocrine: Negative for neck swelling, polydipsia, polyuria, polyphagia, and marked weight changes, Hematologic/Lymphatic: Negative for swollen nodes, abnormal bleeding, and unusual bruising, 18:58 Neuro: Positive for dizziness, headache, SHAKING, AFTER INAPSINE, Exam: 19:01 Constitutional: This is a well developed, well nourished patient who is awake, alert, joseph and in no acute distress. Head/Face: Normocephalic, atraumatic. Eyes: Pupils equal round and reactive to light, extra-ocular motions intact. Lids and lashes normal. Conjunctiva and sclera are non-icteric and not injected. Cornea within normal limits. Periorbital areas with no swelling, redness, or edema. ENT: Nares patent. No nasal discharge, no septal abnormalities noted. Tympanic membranes are normal and external auditory canals are clear. Oropharynx with no redness, swelling, or masses, exudates, or evidence of obstruction, uvula midline. Mucous membranes moist. Neck: Trachea midline, no thyromegaly or masses palpated, and no cervical lymphadenopathy. Supple, full range of motion without nuchal rigidity, or vertebral point tenderness. No Meningismus. Chest/axilla: Normal chest wall appearance and motion. Nontender with no deformity. No lesions are appreciated. Cardiovascular: Regular rate and rhythm with a normal S1 and S2. No gallops, murmurs, or rubs. Normal PMI, no JVD. No pulse deficits. Respiratory: Lungs have equal breath sounds bilaterally, clear to auscultation and percussion. No rales, rhonchi or wheezes noted. No increased work of breathing, no retractions or nasal flaring. Abdomen/GI: Soft, non-tender, with normal bowel sounds. No distension or tympany. No guarding or rebound. No evidence of tenderness throughout. Back: No spinal tenderness. No costovertebral tenderness. Full range of motion. Skin: Warm, dry with normal turgor. Normal color with no rashes, no lesions, and no evidence of cellulitis. MS/ Extremity: Pulses equal, no cyanosis. Neurovascular intact. Full, normal range of motion., bilateral aka Neuro: Awake and alert, GCS 15, oriented to person, place, time, and situation. Cranial nerves II-XII grossly intact. Motor strength 5/5 in all extremities. Sensory grossly intact. Cerebellar exam normal. Normal gait. Psych: Awake, alert, with orientation to person, place and time. Behavior, mood, and affect are within normal limits. 19:01 Neuro: Orientation: is normal, appropriate for stated age, no acute changes, Mentation: is normal, appropriate for stated age, no acute changes, Memory: is normal, appropriate for stated age, no acute changes, Cranial nerves: grossly normal, is grossly normal based on the patient's age, no acute changes, Cerebellar function: is grossly normal, is grossly normal based on the patient's age, no acute changes, Motor: is normal, no acute changes, moves all fours, strength is normal, Gait: not tested. seizure activity, is not displayed by the patient, 19:41 Neck: External neck: is normal, no abrasions, no abscess, no cellulitis, no ecchymosis, joseph no erythema, no laceration, no mass, no rash, no swelling, no tenderness, C-spine: appears grossly normal, no acute changes, Thyroid: appears normal, no acute changes, Trachea: is midline with no obvious abnormalities, no acute changes, ROM/movement: is normal, Lymph nodes: no appreciated lymphadenopathy, Vital Signs: 18:17 BP 117 / 68; Pulse 74; Resp 16; Temp 98; Pulse Ox 98% ; bp 18:21 BP 121 / 82; Pulse 56; Resp 16; Pulse Ox 97% ; Weight 64.86 kg; Height 5 ft. 9 in. ; bp 19:50 BP 122 / 78; Pulse 63; Resp 17; Pulse Ox 100% on R/A; Pain 0/10; rg5 18:21 Body Mass Index 21.12 (64.86 kg, 175.26 cm) bp 19:50 Pain Scale: Adult rg5 NIH Stroke Scale Scores: 19:01 NIHSS Score: 0 joseph Sarah Coma Score: 19:03 Eye Response: spontaneous(4). Motor Response: obeys commands(6). Verbal Response: joseph oriented(5). Total: 15. MDM: 18:51 Medical Screening Exam initiated joseph 19:03 Differential diagnosis: cluster headache, epidural hematoma, hypoglycemia, joseph hyponatremia, migraine, neoplasm, subarachnoid bleed, subdural hematoma, temporal arteritis. Data reviewed: vital signs, nurses notes, EMS record, lab test result(s), radiologic studies, CT scan. Consideration of Admission/Observation Escalation of care including admission/observation considered. I considered the following discharge prescriptions or medication management in the emergency department Medications were administered in the Emergency Department. See MAR. Independent interpretation of the following test(s) in the Emergency Department CT Scan: My interpretation is CT HEAD WITHOUT. Test considered but Not performed: MRI: NO MRI. Care significantly affected by the following chronic conditions: ENDOMETROSIS, HYPOTHYROID, BRAIN CANCER. 07/20 18:58 Order name: CBC with Diff; Complete Time: 19:34 [facility] 07/20 18:58 Order name: CMP; Complete Time: 19:58 [facility] 07/20 18:58 Order name: CT Head Brain wo Cont; Complete Time: 19:56 [facility] 07/20 18:58 Order name: Seizure Precautions; Complete Time: 19:18 [facility] Administered Medications: 19:10 Drug: diphenhydrAMINE IVP 25 mg IVP once Route: IVP; Site: left antecubital; rg5 19:52 Follow up: Response: No adverse reaction rg5 19:10 Drug: Ondansetron IVP 4 mg IVP once; over 2 minutes Route: IVP; Site: left antecubital; rg5 19:52 Follow up: Response: No adverse reaction rg5 19:12 Drug: Ativan IVP 1 mg IVP once Route: IVP; Site: left antecubital; rg5 19:52 Follow up: Response: No adverse reaction rg5 19:17 Drug: Keppra IV 1000 mg IV at per protocol once Route: IV; Rate: per protocol; Site: rg5 left antecubital; 19:52 Follow up: IV Status: Completed infusion; IV Intake: 100ml rg5 20:04 Not Given (Patient Refused): fentanyl (pf)25 mcg IVP once rg5 20:05 Not Given (Patient Refused): fentanyl (pf)25 mcg IVP once rg5 Disposition Summary: 07/20/25 19:58 Discharge Ordered Notes: Location: Home joseph Problem: new joseph Symptoms: have improved joseph Condition: Stable joseph Diagnosis - Headache - SP CRAINIECTOMY, BRAIN TUMOR joseph - Acute stress reaction joseph Followup: joseph - With: Private Physician - When: 2 - 3 days - Reason: Recheck today's complaints, Continuance of care, Re-evaluation by your physician Followup: joseph - With: John Velasco MD - When: 2 - 3 days - Reason: Recheck today's complaints, Re-evaluation by your physician Discharge Instructions: - Discharge Summary Sheet joseph - Tension Headache, Adult joseph - Stress, Adult joseph - Tension Headache, Adult, [id number] joseph - Managing Stress, Adult joseph Forms: - Medication Reconciliation Form joseph - Antibiotic Education joseph - Prescription Opioid Use joseph - Patient Portal Instructions [facility] - Leadership Thank You Letter [facility] Prescriptions: - Keppra 500 mg Oral Tablet - take 1 tablet ORAL route every 12 hours; 20 tablet; Refills: 0, Product [facility] Selection Permitted - Xanax 0.5 mg Oral tablet - take 1 tablet ORAL route every 8 hours As needed; 15 tablet; Refills: 0, joseph Product Selection Permitted NIH Stroke Scale - NIH Stroke Score Date: 07/20/2025 Time: 19:01 Total Score = 0 10. Dysarthria (speech clarity - read or repeat words) - 0(Normal) 11. Extinction and Inattention (visual/tactile/auditory/spatial/personal) - 0(No abnormality) 1a. Level of Consciousness (LOC) - 0(Alert) 1b. Level of Consciousness (LOC) (Month \T\ Age) - 0(Both) 1c. LOC Commands (Open \T\ Closes Eyes/Engine Lathe Tender) - 0(Both) 2. Best Gaze (Lateral Gaze Paresis) - 0(Normal) 3. Visual Field Loss - 0(No visual loss) 4. Facial Palsy - 0(Normal) 5a. Left Arm: Motor (10-second hold) - 0(No drift) 5b. Right Arm: Motor (10-second hold) - 0(No drift) 6a. Left Leg: Motor (5-second hold - always test supine) - 0(No drift) 6b. Right Leg: Motor (5-second hold - always test supine) - 0(No drift) 7. Limb Ataxia (finger/nose \T\ heel/rodrigez - test with eyes open) - 0(Absent) 8. Sensory Loss (pinprick arms/legs/face) - 0(Normal) 9. Best Language: Aphasia (description/naming/reading) - 0(No aphasia) Initials: [facility] Signatures: Dispatcher [employer] EDMS Dangelo, Warren, MD MD joseph Zhu, Steve, MD MD rn Cherise, Rogelio, RN RN bp Deshpande, Winston, RN RN rg5 Corrections: (The following items were deleted from the chart) 18:58 18:58 CBC+H.LAB.BRZ ordered. EDMS EDMS 18:58 18:58 COMPREHENSIVE METABOLIC PANEL+C.LAB.BRZ ordered. EDMS EDMS 18:58 18:58 Head Brain Wo Cont+CT.RAD.BRZ ordered. EDMS EDMS
--- NOTE | 2025-07-20 19:59 | ER ---
Nurse's Notes [facility] Name: Vickie Davila Age: 50 yrs Sex: Female : 1975 Arrival Date: 07/20/2025 Time: 18:09 Bed 12 Private MD: Diagnosis: Headache-SP CRAINIECTOMY, BRAIN TUMOR;Acute stress reaction Presentation: 07/20 18:17 Chief complaint: EMS states: HEADACHE. Coronavirus screen: At this time, the client bp does not indicate any symptoms associated with coronavirus-19. Ebola Screen: No symptoms or risks identified at this time. Initial Sepsis Screen: Does the patient meet any 2 criteria? No. Patient's initial sepsis screen is negative. Does the patient have a suspected source of infection? No. Patient's initial sepsis screen is negative. Risk Assessment: Do you want to hurt yourself or someone else? Patient reports no desire to harm self or others. Onset of symptoms is unknown. 18:17 Method Of Arrival: EMS: [facility] bp 18:17 Acuity: CRISTAL 3 bp Triage Assessment: 18:17 Headache History: The patient has had previous headaches and this one is similar to bp previous episodes. General: Appears uncomfortable, Behavior is appropriate for age. Pain: Complains of pain in head Pain Pain began suddenly, Also complains of no other associated symptoms. EENT: No deficits noted. Neuro: Level of Consciousness is awake, alert, obeys commands, Oriented to Appropriate for age. Cardiovascular: No deficits noted. Respiratory: No deficits noted. GI: No signs and/or symptoms were reported involving the gastrointestinal system. : No signs and/or symptoms were reported regarding the genitourinary system. Derm: No deficits noted. Musculoskeletal: No deficits noted. Historical: - Allergies: 18:17 No Known Allergies; bp - PMHx: 18:17 Endometrosis; Hypothyroidism; BRAIN CANCER; bp - PSHx: 18:17 Appendectomy; hysterectomy; LT CRANIECTOMY (ec); bp - Immunization history:: Adult Immunizations up to date. - Infectious Disease History:: Denies. - Social history:: Smoking status: Patient denies any tobacco usage or history of. - Family history:: not pertinent. Screenin:22 [facility] ED Fall Risk Assessment (Adult) History of falling in the last 3 months, bp including since admission No falls in past 3 months (0 pts) Confusion or Disorientation No (0 pts) Intoxicated or Sedated No (0 pts) Impaired Gait No (0 pts) Mobility Assist Device Used No (0 pt) Altered Elimination No (0 pt) Score/Fall Risk Level 0 - 2 = Low Risk Oriented to surroundings. Abuse screen: Denies threats or abuse. Denies injuries from another. Nutritional screening: No deficits noted. Tuberculosis screening: No symptoms or risk factors identified. Assessment: 18:49 Reassessment: patient shaking from medication given by EMS. Dr. Pierson informed. ll1 Family and patient updated that physician will be by as soon as possible. 19:30 Reassessment: Patient and/or family updated on plan of care and expected duration. Pain rg5 level reassessed. Patient is alert, oriented x 3, equal unlabored respirations, skin warm/dry/pink. Patient states symptoms have improved. 19:30 General: Appears in no apparent distress. Behavior is calm, cooperative, appropriate rg5 for age. Pain: Complains of pain in forehead. Neuro: Level of Consciousness is awake, alert, obeys commands, Oriented to person, place, time, situation. Cardiovascular: Patient's skin is warm and dry. Respiratory: Airway is patent Trachea midline Respiratory effort is even, unlabored, Respiratory pattern is regular, symmetrical. GI: No signs and/or symptoms were reported involving the gastrointestinal system. : No signs and/or symptoms were reported regarding the genitourinary system. EENT: No signs and/or symptoms were reported regarding the EENT system. Derm: Skin is intact, Skin is dry, Skin is normal. Musculoskeletal: Circulation, motion, and sensation intact. Range of motion: intact in all extremities. 20:17 Reassessment: Patient and/or family updated on plan of care and expected duration. Pain rg5 level reassessed. Patient is alert, oriented x 3, equal unlabored respirations, skin warm/dry/pink. Patient states feeling better. Patient states symptoms have improved. Vital Signs: 18:17 BP 117 / 68; Pulse 74; Resp 16; Temp 98; Pulse Ox 98% ; bp 18:21 BP 121 / 82; Pulse 56; Resp 16; Pulse Ox 97% ; Weight 64.86 kg; Height 5 ft. 9 in. ; bp 19:50 BP 122 / 78; Pulse 63; Resp 17; Pulse Ox 100% on R/A; Pain 0/10; rg5 18:21 Body Mass Index 21.12 (64.86 kg, 175.26 cm) bp 19:50 Pain Scale: Adult rg5 Sarah Coma Score: 19:03 Eye Response: spontaneous(4). Motor Response: obeys commands(6). Verbal Response: joseph oriented(5). Total: 15. NIH Stroke Scale Scores: 19:01 NIHSS Score: 0 joseph ED Course: 18:17 Patient arrived in ED. bp 18:17 Arm band placed on. bp 18:19 Triage completed. bp 18:21 Maintain EMS IV. Dressing intact. Good blood return noted. Site clean \T\ dry. Gauge \T\ bp site: 20 LAC. 18:22 Patient has correct armband on for positive identification. bp 18:28 Winston Deshpande, JHOAN is Primary Nurse. rg5 18:51 Warren Pierson MD is Attending Physician. joseph 19:30 No provider procedures requiring assistance completed. Patient maintains SpO2 rg5 saturation greater than 95% on room air. 19:43 CT Head Brain wo Cont In Process Unspecified. EDMS 19:50 Door closed. Noise minimized. rg5 19:58 John Velasco MD is Referral Physician. joseph 20:18 IV discontinued, bleeding controlled, No redness/swelling at site. Pressure dressing rg5 applied. Administered Medications: 19:10 Drug: diphenhydrAMINE IVP 25 mg IVP once Route: IVP; Site: left antecubital; rg5 19:52 Follow up: Response: No adverse reaction rg5 19:10 Drug: Ondansetron IVP 4 mg IVP once; over 2 minutes Route: IVP; Site: left antecubital; rg5 19:52 Follow up: Response: No adverse reaction rg5 19:12 Drug: Ativan IVP 1 mg IVP once Route: IVP; Site: left antecubital; rg5 19:52 Follow up: Response: No adverse reaction rg5 19:17 Drug: Keppra IV 1000 mg IV at per protocol once Route: IV; Rate: per protocol; Site: rg5 left antecubital; 19:52 Follow up: IV Status: Completed infusion; IV Intake: 100ml rg5 20:04 Not Given (Patient Refused): fentanyl (pf)25 mcg IVP once rg5 20:05 Not Given (Patient Refused): fentanyl (pf)25 mcg IVP once rg5 Medication: 19:30 VIS not applicable for this client. rg5 Intake: 19:52 IV: 100ml; Total: 100ml. rg5 Outcome: 19:58 Discharge ordered by . joseph 20:18 Discharged to home via wheelchair, rg5 20:18 Condition: stable 20:18 Discharge instructions given to patient, family, Instructed on discharge instructions, follow up and referral plans. Demonstrated understanding of instructions, follow-up care, medications, Prescriptions given X 2, 20:23 Patient left the ED. rg5 NIH Stroke Scale - NIH Stroke Score Date: 07/20/2025 Time: 19:01 Total Score = 0 10. Dysarthria (speech clarity - read or repeat words) - 0(Normal) 11. Extinction and Inattention (visual/tactile/auditory/spatial/personal) - 0(No abnormality) 1a. Level of Consciousness (LOC) - 0(Alert) 1b. Level of Consciousness (LOC) (Month \T\ Age) - 0(Both) 1c. LOC Commands (Open \T\ Closes Eyes/Grey Percher) - 0(Both) 2. Best Gaze (Lateral Gaze Paresis) - 0(Normal) 3. Visual Field Loss - 0(No visual loss) 4. Facial Palsy - 0(Normal) 5a. Left Arm: Motor (10-second hold) - 0(No drift) 5b. Right Arm: Motor (10-second hold) - 0(No drift) 6a. Left Leg: Motor (5-second hold - always test supine) - 0(No drift) 6b. Right Leg: Motor (5-second hold - always test supine) - 0(No drift) 7. Limb Ataxia (finger/nose \T\ heel/rodrigez - test with eyes open) - 0(Absent) 8. Sensory Loss (pinprick arms/legs/face) - 0(Normal) 9. Best Language: Aphasia (description/naming/reading) - 0(No aphasia) Initials: joseph Signatures: Dispatcher [employer] EDWarren Meredith MD MD cha Peltier, Brian, RN Tara Whitehead RN RN ll1 Winston Deshpande RN RN rg5
== END 2025-07-20 20:23 | disposition home or self-care (01) ==
LOC: ER 18:09
DX: R51.9 Headache, unspecified (principal); F43.0 Acute stress reaction; E03.9 Hypothyroidism, unspecified; N80.9 Endometriosis, unspecified; Z85.841 Personal history of malignant neoplasm of brain
CPT/HCPCS: 96365; 85025; 36415; 80053; 70450; 96375; 99284; J1953; J1200; J2405